=== PATIENT | female | born 1945 ===

== ENCOUNTER 2017-03-17 00:31 | Inpatient (IN) | payer MEDICARE, MEDICAID ==
[2017-03-17 00:31] VITALS: BMI 22.3
[2017-03-17] MEDS ORDERED: Fosphenytoin 100 mg/2 ml Inj IV STA (00:43)
[2017-03-17] MEDS ORDERED: Fosphenytoin 100 mg/2 ml Inj ONE (01:39)
--- NOTE | 2017-03-17 01:48 | ED PDOC ---
HPI: Seizure Time Seen by Provider: 03/17/17 00:34 Chief Complaint (Nursing): Seizure Chief Complaint (Provider): Seizure History Per: EMS, Family History/Exam Limitations: no limitations Recent Seizure Activity Began: Just Before Arrival (30 minutes) Length Of Seizures (Duration): Minutes (<1) Quality Of Seizure: Generalized Post-ictal Period: Yes (<1 minute) Additional Complaint(s): 72 year old female with previous medical history of hypertension, Alzheimer's disease and hypothyroidism, who presents to the emergency department for an evaluation of less than 1 minute tonic-clonic seizure postictal state witnessed by family and EMS half an hour prior to arrival. Daughter reported that patient had seizure-like activity last week, evaluated at [facility] and discharged yesterday with no seizure medications and a negative workup. PMD: none provided Past Medical History Reviewed: Historical Data, Nursing Documentation, Vital Signs Vital Signs: Last Vital Signs Temp 97.9 F 03/17/17 05:35 Pulse 88 03/17/17 05:47 Resp 16 03/17/17 05:47 BP 115/7 L 03/17/17 05:35 Pulse Ox 100 03/17/17 05:35 - Medical History PMH: Alzheimer's Disease, HTN, Hypothyroidism, Seizures - Family History Family History: States: Unknown Family Hx - Social History Current smoker - smoking cessation education provided: No Alcohol: None Drugs: Denies - Home Medications Home Medications: Ambulatory Orders Medication Instructions Recorded Aspirin [Aspirin Chewable] 81 mg PO DAILY 03/17/17 Atorvastatin [Lipitor] 10 mg PO HS 03/17/17 Enalapril Maleate [Vasotec] 5 mg PO DAILY 03/17/17 Levothyroxine [Synthroid] 75 mcg PO DAILY 03/17/17 Memantine HCl/Donepezil HCl 1 each PO DAILY 03/17/17 [Namzaric 28 mg-10 mg Capsule] Mirtazapine [Remeron] 15 mg PO HS 03/17/17 Tamsulosin [Flomax] 0.4 mg PO DAILY 03/17/17 - Allergies Allergies/Adverse Reactions: Allergies Allergy/AdvReac Type Severity Reaction Status Date / Time No Known Allergies Allergy Verified 01/26/16 08:55 Review of Systems Review Of Systems: ROS cannot be obtained secondary to pt's inabilty to answer questions. (alzheimer's disease) Physical Exam - Reviewed Nursing Documentation Reviewed: Yes Vital Signs Reviewed: Yes - Physical Exam Appears: Positive for: No Acute Distress Head Exam: Positive for: ATRAUMATIC, NORMAL INSPECTION, NORMOCEPHALIC Skin: Positive for: Normal Color Eye Exam: Positive for: Normal appearance ENT: Positive for: Normal ENT Inspection Cardiovascular/Chest: Positive for: Regular Rate, Rhythm, Chest Non Tender Respiratory: Positive for: Normal Breath Sounds. Negative for: Decreased Breath Sounds, Respiratory Distress Gastrointestinal/Abdominal: Positive for: Normal Exam, Soft. Negative for: Tenderness Extremity: Positive for: Normal ROM (lower). Negative for: Pedal Edema, Calf Tenderness, Deformity (lower) Neurologic/Psych: Positive for: Alert (to voice commands), grief counsellor II-XII (intact), Oriented (x0), Mood/Affect (mumbling), Other (GCS: 14 (eyes are closed; opens with stimulation)) - Laboratory Results Result Diagrams: 03/17/17 01:41 03/17/17 01:41 - ECG O2 Sat by Pulse Oximetry: 100 Pulse Ox Interpretation: Normal Medical Decision Making Medical Decision Making: Initial Impression: Seizure vs. syncope with tonic-clonic activity vs. electrolyte abnormality vs. UTI Initial Plan: * CT head without contrast * EKG * Alcohol serum * BMP * CPK * TSH * CBC * CXR * Cerebyx 100mg IV * Stool culture * Accuchek * Urinalysis Time: 0214 --CT head FINDINGS: Brain: There is mild diffuse cerebral atrophy present, consistent with this patient's age. There is mild diffuse heterogeneity of the periventricular white matter attenuation, consistent with chronic white matter ischemic changes. No hemorrhage. Ventricles: The ventricular system demonstrates mild diffuse compensatory enlargement. Bones/joints: Unremarkable. No acute fracture. Soft tissues: Unremarkable. Sinuses: Unremarkable as visualized. No acute sinusitis. Mastoid air cells: Unremarkable as visualized. No mastoid effusion. IMPRESSION: Age-related atrophy and chronic white matter ischemic changes, with no evidence of an acute intracranial abnormality. CT A/P ordered to r/o infected stone, shows possible colitis, however patient does not have abd pain, nor tenderness on exam. ABx started for UTI. Spoke with Dr. Mayberry who agrees with management. Will admit to tele, Dr. La aware. Scribe Attestation: Documented by Shelby Corea, acting as a scribe for Cullen Segovia MD. Provider Scribe Attestation: All medical record entries made by the Scribe were at my direction and personally dictated by me. I have reviewed the chart and agree that the record accurately reflects my personal performance of the history, physical exam, medical decision making, and the department course for this patient. I have also personally directed, reviewed, and agree with the discharge instructions and disposition. Disposition - Clinical Impression Clinical Impression: UTI (urinary tract infection), Witnessed seizure - Patient ED Disposition Is Patient to be Admitted: Yes - Disposition Disposition Time: 02:50 Condition: SERIOUS
[2017-03-17 01:59] LABS: BASO # 0.1 K/uL (0.0-0.2); BASO % 0.6 % (0.0-2.0); EOS # 0.2 K/uL (0.0-0.7); EOS % 1.3 % (0.0-4.0); HEMOGLOBIN 10.1 g/dL (12.0-16.0); LYMPH # 2.2 K/uL (1.0-4.3); LYMPH % 12.3 % (20.0-40.0); MEAN CELL VOLUME 76.1 fl (81.0-99.0); MEAN CORPUSCULAR HEMOGLOBIN 23.7 pg (27.0-31.0); MEAN CORPUSCULAR HGB CONC 31.2 g/dL (33.0-37.0); MEAN PLATELET VOLUME 7.6 fl (7.2-11.7); MONO % 5.7 % (0.0-10.0); NEUT # 14.3 K/uL (1.8-7.0); NEUT % 80.1 % (50.0-75.0); RBC 4.26 Mil/uL (3.80-5.20); RED CELL DISTRIBUTION WIDTH 16.6 % (11.5-14.5); WHITE BLOOD COUNT 17.8 K/uL (4.8-10.8)
--- NOTE | 2017-03-17 02:15 | CT ---
EXAM: CT Head Without Intravenous Contrast CLINICAL HISTORY: 72 years old, female; Signs and symptoms; Other: Seizures; Additional info: 2 seizures today TECHNIQUE: Axial computed tomography images of the head/brain without intravenous contrast. All CT scans at this facility use one or more dose reduction techniques, viz.: automated exposure control; ma/kV adjustment per patient size (including targeted exams where dose is matched to indication; i.e. head); or iterative reconstruction technique. Coronal and sagittal reformatted images were created and reviewed. COMPARISON: No relevant prior studies available. FINDINGS: Brain: There is mild diffuse cerebral atrophy present, consistent with this patient's age. There is mild diffuse heterogeneity of the periventricular white matter attenuation, consistent with chronic white matter ischemic changes. No hemorrhage. Ventricles: The ventricular system demonstrates mild diffuse compensatory enlargement. Bones/joints: Unremarkable. No acute fracture. Soft tissues: Unremarkable. Sinuses: Unremarkable as visualized. No acute sinusitis. Mastoid air cells: Unremarkable as visualized. No mastoid effusion. IMPRESSION: Age-related atrophy and chronic white matter ischemic changes, with no evidence of an acute intracranial abnormality.
[2017-03-17 02:37] LABS: BLOOD UREA NITROGEN 13 mg/dl (7-17); CALCIUM 8.9 mg/dL (8.4-10.2); GFR AFRICAN-AMERICAN > 60; GFR NON-AFRICAN AMERICAN 55
[2017-03-17 02:47] LABS: SQUAMOUS EPITHIAL < 1 /hpf (0-5); URINE BACTERIA RARE (<OCC); URINE BILIRUBIN NEGATIVE (NEGATIVE); URINE BLOOD LARGE (NEGATIVE); URINE CALCIUM OXALATE CRYSTALS MANY /hpf (<OCC); URINE CLARITY CLOUDY (Clear); URINE COLOR YELLOW (YELLOW); URINE GLUCOSE (UA) NEG (Normal); URINE LEUKOCYTE ESTERASE MOD Leu/uL (Negative); URINE NITRATE NEGATIVE (NEGATIVE); URINE PROTEIN 30 mg/dL (NEGATIVE); URINE UROBILINOGEN 0.2-1.0 mg/dL (0.2-1.0)
[2017-03-17] MEDS ORDERED: Sodium Chloride 0.9% 1,000 ML IV STA (02:54)
[2017-03-17] MEDS ORDERED: cefTRIAXone 2 GM in Sodium Chloride 0.9% 100 ML IVPB STA (02:58)
[2017-03-17] MEDS ORDERED: Iohexol 300 100 ML IJ ONE (03:08)
[2017-03-17] MEDS ORDERED: Sodium Chloride 0.9% 50 ML IV ONE (03:09)
--- NOTE | 2017-03-17 03:12 | CP.PCM.HP ---
History of Present Illness - History of Present Illness History of Present Illness: CC: Seizures HPI: This is a 72 y/o female with MHx significant for HTN, hypothyroid, Alzheimer's disease, and recent diagnosis for seizures who comes in with recurrent seizures. Per family, patient was at [facility] since last week being w/u for seizures. She was d/c'ed yesterday but on no AEDs as her w/u was negative. Today, prior to presenting to ER, she was observed by family to have 1 minute of tonic-clonic seizures and then be post-ictal. After getting on the ambulance and on the way to the ER she apparently had another 1-2 episodes. This past week appears to be first time patient has had seizures. Patient has not had any head trauma as far as known, and has not been started on any new medications. No current f/c/n/v/d. No CP/SOB. no dysuria. PCP: Lora ROS: 14 systems reviewed as possible, negative aside from HPI MHx: HTN, hypothyroid, Alzheimer's disease, and recent diagnosis for seizures SHx: None Allergies: NKDA Medications: Per med rec Family Hx: Patient unable to provide any relevant family Hx Social Hx: Lives at home, no tobacco, no EtOH Surrogate Dec Mkr: Present on Admission - Present on Admission Any Indicators Present on Admission: No Past Patient History - Past Social History Smoking Status: Never Smoked - CARDIAC Hx Hypertension: Yes - NEUROLOGICAL Hx Alzheimer's Disease: Yes Hx Dementia: Yes Hx Seizures: Yes - ENDOCRINE/METABOLIC Hx Hypothyroidism: Yes - PSYCHIATRIC Hx Substance Use: No Meds Allergies/Adverse Reactions: Allergies Allergy/AdvReac Type Severity Reaction Status Date / Time No Known Allergies Allergy Verified 01/26/16 08:55 Physical Exam - Constitutional Appears: No Acute Distress, Confused - Head Exam Head Exam: ATRAUMATIC, NORMOCEPHALIC - Eye Exam Eye Exam: EOMI, Normal appearance, PERRL Pupil Exam: NORMAL ACCOMODATION, PERRL - ENT Exam ENT Exam: Mucous Membranes Moist - Neck Exam Neck exam: Positive for: Full Rom - Respiratory Exam Respiratory Exam: Clear to Auscultation Bilateral, NORMAL BREATHING PATTERN - Cardiovascular Exam Cardiovascular Exam: REGULAR RHYTHM, +S1, +S2 - GI/Abdominal Exam GI & Abdominal Exam: Normal Bowel Sounds, Soft - Extremities Exam Extremities exam: Positive for: full ROM, normal inspection - Neurological Exam Neurological exam: Alert Additional comments: patient awake, with baseline dementia, no gross focal motor abn - Skin Skin Exam: Warm Results - Vital Signs Recent Vital Signs: Last Vital Signs Temp 97.6 F 03/17/17 00:39 Pulse 73 03/17/17 00:39 Resp 18 03/17/17 00:39 BP 115/70 03/17/17 00:39 Pulse Ox 100 03/17/17 02:20 - Labs Result Diagrams: 03/17/17 01:41 03/17/17 01:41 Labs: Laboratory Results - last 24 hr 03/17/17 03/17/17 03/17/17 00:55 01:41 01:41 WBC 17.8 H RBC 4.26 Hgb 10.1 L Hct 32.4 L MCV 76.1 L MCH 23.7 L MCHC 31.2 L RDW 16.6 H Plt Count 372 MPV 7.6 Neut % (Auto) 80.1 H Lymph % (Auto) 12.3 L [place] % (Auto) 5.7 Eos % (Auto) 1.3 Baso % (Auto) 0.6 Neut # 14.3 H Lymph # 2.2 [place] # 1.0 H Eos # 0.2 Baso # 0.1 Sodium 140 Potassium 4.2 Chloride 107 Carbon Dioxide 24 Anion Gap 13 BUN 13 Creatinine 1.0 Est GFR ( Amer) > 60 Est GFR (Non-Af Amer) 55 POC Glucose (mg/dL) 128 H Random Glucose 124 H Calcium 8.9 Urine Color Urine Clarity Urine pH Ur Specific [place] Urine Protein Urine Glucose (UA) Urine Ketones Urine Blood Urine Nitrate Urine Bilirubin Urine Urobilinogen Ur Leukocyte Esterase Urine RBC (Auto) Urine Microscopic WBC Ur Squamous Epith Cells Calcium Oxalate Crystal Urine Bacteria Alcohol, Quantitative < 10 03/17/17 02:25 WBC RBC Hgb Hct MCV MCH MCHC RDW Plt Count MPV Neut % (Auto) Lymph % (Auto) [place] % (Auto) Eos % (Auto) Baso % (Auto) Neut # Lymph # [place] # Eos # Baso # Sodium Potassium Chloride Carbon Dioxide Anion Gap BUN Creatinine Est GFR ( Amer) Est GFR (Non-Af Amer) POC Glucose (mg/dL) Random Glucose Calcium Urine Color Yellow Urine Clarity Cloudy Urine pH 6.0 Ur Specific [place] 1.019 Urine Protein 30 Urine Glucose (UA) Neg Urine Ketones Negative Urine Blood Large Urine Nitrate Negative Urine Bilirubin Negative Urine Urobilinogen 0.2-1.0 Ur Leukocyte Esterase Mod Urine RBC (Auto) 331 H Urine Microscopic WBC 10 H Ur Squamous Epith Cells < 1 Calcium Oxalate Crystal Many H Urine Bacteria Rare Alcohol, Quantitative - Imaging and Cardiology CT scan - head Status: Image reviewed by me (No acute findings), Report reviewed by me Assessment & Plan (1) Seizure Assessment and Plan: 72 y/o female with mult med conds including recent seizure dx, and also UTI. 1) Seizure -Admit tele -Neuro c/s in AM -Will cont phenytoin post-load at 100 tid PO -Ativan for breakthrough seizures 2) UTI -- continue ceftriaxone 3) HTN, HLD -- cont home medications 4) Hypothroid -- cont home medications 5) Dementia -- cont home medications 6) DVT PPx -- SCDs Status: Acute (2) UTI (urinary tract infection) Status: Acute (3) HTN (hypertension) Status: Acute (4) HLD (hyperlipidemia) Status: Acute (5) Hypothyroid Status: Acute (6) DVT prophylaxis Status: Acute
[2017-03-17 03:19] LABS: VENOUS BLOOD GAS BASE EXCESS -1.4 mmol/L (0.0-2.0); VENOUS BLOOD GAS PCO2 36 mmHg (40-60); VENOUS BLOOD GAS PO2 50 mm/Hg (30-55); VENOUS BLOOD PH 7.41 (7.32-7.43)
--- NOTE | 2017-03-17 04:17 | CT ---
EXAM: CT Abdomen and Pelvis With Intravenous Contrast CLINICAL HISTORY: 72 years old, female; Signs and symptoms; Other: Leukocytosis hematuria; Additional info: Leukocytosis, hematuria TECHNIQUE: Axial computed tomography images of the abdomen and pelvis with intravenous contrast. All CT scans at this facility use one or more dose reduction techniques, viz.: automated exposure control; ma/kV adjustment per patient size (including targeted exams where dose is matched to indication; i.e. head); or iterative reconstruction technique. Coronal and sagittal reformatted images were created and reviewed. CONTRAST: 95 mL of omnipaue 300 administered intravenously. COMPARISON: No relevant prior studies available. FINDINGS: Lower thorax: There is minimal bibasilar atelectasis. ABDOMEN: Liver: Unremarkable. No mass. Gallbladder and bile ducts: Unremarkable. No calcified stones. No ductal dilation. Pancreas: Unremarkable. No mass. No ductal dilation. Spleen: Too small to characterize low-density lesion in the spleen measures 7 mm. No no splenomegaly Adrenals: Unremarkable. No mass. Kidneys and ureters: The right kidney is normal. There is a focal left renal hypodensity that cannot be further characterized on the current examination. No solid mass. No hydronephrosis. Stomach and bowel: No obstruction. The colon is thick walled at the splenic flexure suggesting acute colitis. Mild adjacent stranding of the mesenteric fat. An underlying mass or stricture is not completely excluded. Image 13 series 2. Appendix: A normal appendix is identified. PELVIS: Bladder: The bladder is decompressed by a King catheter but is otherwise normal. Reproductive: Unremarkable as visualized. ABDOMEN and PELVIS: Intraperitoneal space: No significant fluid collection. Bones/joints: No acute fracture. No dislocation. Soft tissues: There is a fat-containing umbilical hernia. Vasculature: Unremarkable. No abdominal aortic aneurysm. Lymph nodes: Unremarkable. No enlarged lymph nodes. IMPRESSION: Thickwalled splenic flexure with mild adjacent inflammatory changes suggesting acute colitis. An underlying mass is not completely excluded. Clinical correlation and followup recommended. Too small to characterize low-density splenic and renal lesions, probable cysts. No followup necessary. Small fat-containing and the local hernia.
[2017-03-17] MEDS ORDERED: Levothyroxine 75 MCG TAB PO SCH (06:30)
--- NOTE | 2017-03-17 08:25 | RAD ---
PROCEDURE: CHEST RADIOGRAPH, 1 VIEW HISTORY: seizures COMPARISON: None available. FINDINGS: LUNGS: No focal alveolar infiltrate. Minor crowding at the lung bases. PLEURA: No pneumothorax or pleural fluid seen. CARDIOVASCULAR: Heart is normal in size. There is mild uncoiling of the aorta. Trachea is midline. OSSEOUS STRUCTURES: No significant abnormalities. VISUALIZED UPPER ABDOMEN: Normal. OTHER FINDINGS: None. IMPRESSION: No active disease.
[2017-03-17] MEDS ORDERED: cefTRIAXone 2 GM in Sodium Chloride 0.9% 100 ML IVPB SCH (09:00)
[2017-03-17] MEDS ORDERED: Levothyroxine 25 MCG TAB PO STA (09:47)
[2017-03-17] MEDS: MEMANTINE HCL PO SCH (10:23)
[2017-03-17] MEDS: DONEPEZIL HCL PO SCH (10:23)
--- NOTE | 2017-03-17 12:14 | CARD ---
APPROVED REPORT EKG Measurement Heart [id number] <Conclusion> Normal sinus rhythm Minimal voltage criteria for LVH, may be normal variant Borderline ECG
--- NOTE | 2017-03-17 16:18 | CP.PCM.CON ---
History of Present Illness - History of Present Illness History of Present Illness: Mrs. Kirill Bray is a 72-year-old woman with Alzheimer's disease, who has now had 4 lifetime witnessed episodes of generalized tonic-clonic seizures. But, her daughter is at bedside and states that the patient may be having more since she does have episodes of night of sweating, shaking, difficulty with respirations and wakes up with urinary incontinence. She was started on dilantin after a loading dose and is currently stable. She was worked up previously by Dr. Booker and he is her outpatient neurologist. Review of Systems - Review of Systems Systems not reviewed;Unavailable: Altered Mental Status All systems: reviewed and no additional remarkable complaints except Past Patient History - Past Medical History & Family History Past Medical History?: Yes - Past Social History Alcohol: None Drugs: Denies - CARDIAC Hx Hypertension: Yes - NEUROLOGICAL Hx Alzheimer's Disease: Yes Hx Seizures: Yes - ENDOCRINE/METABOLIC Hx Hypothyroidism: Yes - MUSCULOSKELETAL/RHEUMATOLOGICAL Hx Falls: No - PSYCHIATRIC Hx Substance Use: No - SURGICAL HISTORY Hx Surgeries: No - ANESTHESIA Hx Anesthesia: No Meds Allergies/Adverse Reactions: Allergies Allergy/AdvReac Type Severity Reaction Status Date / Time No Known Allergies Allergy Verified 01/26/16 08:55 - Medications Medications: Current Medications Aspirin (Aspirin Chewable) 81 mg PO DAILY [facility] Last Admin: 03/17/17 10:24 Dose: 81 mg Atorvastatin Calcium (Lipitor) 10 mg PO HS [facility] Enalapril Maleate (Vasotec) 5 mg PO DAILY [facility] Last Admin: 03/17/17 10:24 Dose: 5 mg Home Med (Memantine Hcl/Donepezil Hcl [Namzaric 28 Mg-10 Mg Capsule]) 1 each PO DAILY [facility] Last Admin: 03/17/17 10:23 Dose: 1 each Ceftriaxone Sodium 1 gm/ (Sodium Chloride) 100 mls @ 100 mls/hr IVPB DAILY [facility] PRN Reason: Protocol Last Admin: 03/17/17 10:47 Dose: 100 mls/hr Lacosamide (Vimpat) 100 mg PO BID [facility] Levothyroxine Sodium (Synthroid) 88 mcg PO DAILY@0630 [facility] Lorazepam (Ativan) 1 mg IVP Q6 PRN PRN Reason: seizures Phenytoin (Dilantin) 100 mg PO Q8 [facility] Last Admin: 01/06/18 10:23 Dose: 100 mg Tamsulosin HCl (Flomax) 0.4 mg PO DAILY [facility] Last Admin: 03/17/17 10:24 Dose: 0.4 mg Physical Exam - Constitutional Appears: Confused - Head Exam Head Exam: ATRAUMATIC, NORMAL INSPECTION, NORMOCEPHALIC - Eye Exam Eye Exam: EOMI, Normal appearance, PERRL - ENT Exam ENT Exam: Mucous Membranes Moist, Normal Exam - Neck Exam Neck exam: Positive for: Normal Inspection - Cardiovascular Exam Cardiovascular Exam: REGULAR RHYTHM, +S1, +S2 - Rectal Exam Rectal Exam: Deferred - Neurological Exam Neurological exam: Abnormal Gait, Alert, Altered, CN II-XII Intact, Reflexes Normal Additional comments: Speech is fragmentary. Severe dementia. Unable to follow commands fully. But , moves all extremities and sensation is intact. Reflexes are normal. Results - Vital Signs Recent Vital Signs: Last Vital Signs Temp 98.6 F 03/17/17 16:01 Pulse 88 03/17/17 16:01 Resp 20 03/17/17 16:01 BP 110/66 03/17/17 16:01 Pulse Ox 98 03/17/17 16:01 - Labs Result Diagrams: 03/17/17 01:41 03/17/17 01:41 Labs: Laboratory Results - last 24 hr 03/17/17 03/17/17 03/17/17 00:55 01:41 01:41 WBC 17.8 H RBC 4.26 Hgb 10.1 L Hct 32.4 L MCV 76.1 L MCH 23.7 L MCHC 31.2 L RDW 16.6 H Plt Count 372 MPV 7.6 Neut % (Auto) 80.1 H Lymph % (Auto) 12.3 L [place] % (Auto) 5.7 Eos % (Auto) 1.3 Baso % (Auto) 0.6 Neut # 14.3 H Lymph # 2.2 Rice # 1.0 H Eos # 0.2 Baso # 0.1 pO2 VBG pH VBG pCO2 VBG HCO3 VBG Total CO2 VBG O2 Sat (Calc) VBG Base Excess VBG Potassium Glucose Lactate FiO2 Sodium 140 Potassium 4.2 Chloride 107 Carbon Dioxide 24 Anion Gap 13 BUN 13 Creatinine 1.0 Est GFR ( Amer) > 60 Est GFR (Non-Af Amer) 55 POC Glucose (mg/dL) 128 H Random Glucose 124 H Calcium 8.9 Total Creatine Kinase 82 TSH 3rd Generation 19.10 H Venous Blood Potassium Urine Color Urine Clarity Urine pH Ur Specific [place] Urine Protein Urine Glucose (UA) Urine Ketones Urine Blood Urine Nitrate Urine Bilirubin Urine Urobilinogen Ur Leukocyte Esterase Urine RBC (Auto) Urine Microscopic WBC Ur Squamous Epith Cells Calcium Oxalate Crystal Urine Bacteria Alcohol, Quantitative < 10 03/17/17 03/17/17 02:25 03:11 WBC RBC Hgb Hct MCV MCH MCHC RDW Plt Count MPV Neut % (Auto) Lymph % (Auto) [place] % (Auto) Eos % (Auto) Baso % (Auto) Neut # Lymph # [place] # Eos # Baso # pO2 50 VBG pH 7.41 VBG pCO2 36 L VBG HCO3 23.5 VBG Total CO2 23.9 VBG O2 Sat (Calc) 90.7 H VBG Base Excess -1.4 L VBG Potassium 4.4 Glucose 116 H Lactate 1.2 FiO2 21.0 Sodium 139.0 Potassium Chloride 110.0 H Carbon Dioxide Anion Gap BUN Creatinine Est GFR ( Amer) Est GFR (Non-Af Amer) POC Glucose (mg/dL) Random Glucose Calcium Total Creatine Kinase TSH 3rd Generation Venous Blood Potassium 4.4 Urine Color Yellow Urine Clarity Cloudy Urine pH 6.0 Ur Specific [place] 1.019 Urine Protein 30 Urine Glucose (UA) Neg Urine Ketones Negative Urine Blood Large Urine Nitrate Negative Urine Bilirubin Negative Urine Urobilinogen 0.2-1.0 Ur Leukocyte Esterase Mod Urine RBC (Auto) 331 H Urine Microscopic WBC 10 H Ur Squamous Epith Cells < 1 Calcium Oxalate Crystal Many H Urine Bacteria Rare Alcohol, Quantitative Assessment & Plan (1) Seizure Assessment and Plan: Will obtain MRI with and without contrast as well as an EEG for further evaluation. Will start the patient on Vimpat 100 mg BID and stop dilantin to avoid interactions with her other medications. Thank you. Status: Acute Priority: High
[2017-03-17] MEDS: Lacosamide 50 MG Tab PO SCH (17:36)
[2017-03-18] MEDS: Levothyroxine 88 MCG TAB PO SCH (05:54)
[2017-03-18 07:15] LABS: HEMOGLOBIN 9.2 g/dL (12.0-16.0); MEAN CELL VOLUME 76.7 fl (81.0-99.0); MEAN CORPUSCULAR HEMOGLOBIN 23.8 pg (27.0-31.0); RBC 3.86 Mil/uL (3.80-5.20); RED CELL DISTRIBUTION WIDTH 16.7 % (11.5-14.5); WHITE BLOOD COUNT 13.5 K/uL (4.8-10.8)
[2017-03-18 07:57] LABS: BLOOD UREA NITROGEN 12 mg/dl (7-17); CALCIUM 8.6 mg/dL (8.4-10.2); GFR AFRICAN-AMERICAN > 60; GFR NON-AFRICAN AMERICAN > 60
[2017-03-18 08:10] LABS: T4 7.38 ug/dl (5.5-11.0)
[2017-03-18] MEDS: Lacosamide 50 MG Tab PO SCH ×2 (09:02→16:37)
--- NOTE | 2017-03-18 09:17 | CP.PCM.PN ---
Subjective - Date & Time of Evaluation Date of Evaluation: 03/18/17 Time of Evaluation: 09:30 - Subjective Subjective: Patient seen and examined bedside. elderly female of stated age, pleasantly demented lying in bed in nAD. Denies any pain or discomfort.No more seizure like activity. Follows commands. Daughter by bedside. Objective - Vital Signs/Intake and Output Vital Signs (last 24 hours): Temp Pulse Resp BP Pulse Ox 98.4 F 94 H 18 109/73 98 03/18/17 07:44 03/18/17 07:44 03/18/17 07:44 03/18/17 07:44 03/18/17 07:44 Intake and Output: 03/18/17 03/18/17 06:59 18:59 Intake Total 200 Output Total 700 Balance -500 - Medications Medications: Current Medications Aspirin (Aspirin Chewable) 81 mg PO DAILY [facility] Last Admin: 03/18/17 09:01 Dose: 81 mg Atorvastatin Calcium (Lipitor) 10 mg PO HS [facility] Last Admin: 03/17/17 21:49 Dose: 10 mg Enalapril Maleate (Vasotec) 5 mg PO DAILY [facility] Last Admin: 03/18/17 08:59 Dose: 5 mg Home Med (Memantine Hcl/Donepezil Hcl [Namzaric 28 Mg-10 Mg Capsule]) 1 each PO DAILY [facility] Last Admin: 03/17/17 10:23 Dose: 1 each Ceftriaxone Sodium 1 gm/ (Sodium Chloride) 100 mls @ 100 mls/hr IVPB DAILY [facility] PRN Reason: Protocol Last Admin: 03/18/17 09:00 Dose: 100 mls/hr Lacosamide (Vimpat) 100 mg PO BID [facility] Last Admin: 03/18/17 09:02 Dose: 100 mg Levothyroxine Sodium (Synthroid) 88 mcg PO DAILY@0630 [facility] Last Admin: 03/18/17 05:54 Dose: 88 mcg Lorazepam (Ativan) 1 mg IVP Q6 PRN PRN Reason: seizures Tamsulosin HCl (Flomax) 0.4 mg PO DAILY [facility] Last Admin: 03/18/17 08:59 Dose: 0.4 mg - Labs Labs: 03/18/17 06:30 03/18/17 06:30 - Constitutional Appears: Non-toxic, No Acute Distress - Head Exam Head Exam: ATRAUMATIC, NORMAL INSPECTION, NORMOCEPHALIC - Eye Exam Eye Exam: EOMI, Normal appearance, PERRL Pupil Exam: NORMAL ACCOMODATION - ENT Exam ENT Exam: Mucous Membranes Moist, Normal Exam - Neck Exam Neck Exam: Full ROM, Normal Inspection - Respiratory Exam Respiratory Exam: Clear to Ausculation Bilateral, NORMAL BREATHING PATTERN. absent: Rales, Rhonchi, Wheezes - Cardiovascular Exam Cardiovascular Exam: REGULAR RHYTHM, RRR, +S1, +S2. absent: JVD - GI/Abdominal Exam GI & Abdominal Exam: Soft, Normal Bowel Sounds. absent: Distended, Guarding, Tenderness, Rebound - Rectal Exam Rectal Exam: Deferred - Extremities Exam Extremities Exam: Full ROM, Normal Capillary Refill, Normal Inspection. absent : Calf Tenderness, Pedal Edema - Back Exam Back Exam: NORMAL INSPECTION - Neurological Exam Neurological Exam: Alert, Awake, CN II-XII Intact - Psychiatric Exam Psychiatric exam: Normal Affect - Skin Skin Exam: Normal Color, Warm Assessment and Plan - Assessment and Plan (Free Text) Assessment: 72 y/o female with PMHx significant for HTN, hypothyroid, Alzheimer's disease, and recent diagnosis for seizures came in with recurrent seizures. Per family, patient was at [facility] since last week being w/u for seizures. She was discharged home yesterday but on no AEDs as her work up was negative. Today, prior to presenting to ER, she was observed by family to have 1 minute of tonic- clonic seizures and then she was post-ictal. After getting on the ambulance and on the way to the ER she apparently had another 1-2 episodes. This past week appears to be first time patient has had seizures. Patient has not had any head trauma as far as known, and has not been started on any new medications. No current f/c/n/v/d. No CP/SOB. Recently diagnosed with UTI in [facility] and a simms catheter was placed due to urinary retention. 1. Seizure patient has muoltipl erecurrent seizure episods CT heda showed generalized age related atrophy , no acute pathology Neurology consult appreciated with Dr. Mayberry[address] Booker0 Started Lindsaypta will perform MRI head with and without contrast and EEG treat for UTI 2. Hypothyroidism uncontrolled TSH 9 increased Levothyroxine dose to 88mcg daily 3. UTI/hematuria Urinary Retention cont IV Ceftriaxone follow up Urine c/s Urology consulted DR Donovan Start bladder training by nursing staff and continue Flomax pt was d/c home from [place] with Simms catheter and Flomax 4.HTN controlled on enalapril 5. Dementia chronic 6. Anemia most likely anemia of chronic disease send anemia work up 7.Leukocytosis most likely reactive and secondary to UTI WBC trendingdown from 17-- 13 K 8. DVT prophylaxis SCD and lovenox
--- NOTE | 2017-03-18 13:55 | CP.PCM.PN ---
Subjective - Date & Time of Evaluation Date of Evaluation: 03/18/17 Time of Evaluation: 13:52 - Subjective Subjective: 72 year old female admitted with new onset of siezures shortly after discharge from [facility] she arrived with simms cath. consult was called because of hematuria. urine is clear now. pt has alzhiemers dementia. ua shows + micro hematuria LE is neg c&s neg. Suggest voiding trial,monitor PVR with bladder scan. If pvr less then 200 cc leave simms out. If not re insert and refer for further urological eval as opd Objective - Vital Signs/Intake and Output Vital Signs (last 24 hours): Temp Pulse Resp BP Pulse Ox 98.5 F 93 H 18 102/65 96 03/18/17 11:50 03/18/17 11:50 03/18/17 11:50 03/18/17 11:50 03/18/17 11:50 Intake and Output: 03/18/17 03/18/17 06:59 18:59 Intake Total 200 Output Total 700 Balance -500 - Medications Medications: Current Medications Aspirin (Aspirin Chewable) 81 mg PO DAILY [facility] Last Admin: 03/18/17 09:01 Dose: 81 mg Atorvastatin Calcium (Lipitor) 10 mg PO HS [facility] Last Admin: 03/17/17 21:49 Dose: 10 mg Enalapril Maleate (Vasotec) 5 mg PO DAILY [facility] Last Admin: 03/18/17 08:59 Dose: 5 mg Home Med (Memantine Hcl/Donepezil Hcl [Namzaric 28 Mg-10 Mg Capsule]) 1 each PO DAILY [facility] Last Admin: 03/17/17 10:23 Dose: 1 each Ceftriaxone Sodium 1 gm/ (Sodium Chloride) 100 mls @ 100 mls/hr IVPB DAILY [facility] PRN Reason: Protocol Last Admin: 03/18/17 09:00 Dose: 100 mls/hr Lacosamide (Vimpat) 100 mg PO BID [facility] Last Admin: 03/18/17 09:02 Dose: 100 mg Lactobacillus Acidophilus (Bacid Acidophilus) 1 cap PO BID [facility] Levothyroxine Sodium (Synthroid) 88 mcg PO DAILY@0630 [facility] Last Admin: 03/18/17 05:54 Dose: 88 mcg Lorazepam (Ativan) 1 mg IVP Q6 PRN PRN Reason: seizures Tamsulosin HCl (Flomax) 0.4 mg PO DAILY [facility] Last Admin: 03/18/17 08:59 Dose: 0.4 mg - Labs Labs: 03/18/17 06:30 03/18/17 06:30
[2017-03-18] MEDS: Lactobacillus Acidophilus 500 MU Cap PO SCH (16:37)
[2017-03-18] MEDS: MEMANTINE HCL PO SCH (16:48)
[2017-03-18] MEDS: DONEPEZIL HCL PO SCH (16:48)
[2017-03-18 17:46] LABS: IRON 22 ug/dL (37-170)
[2017-03-18 17:56] LABS: TOTAL IRON BINDING CAPACITY 299 ug/dL (250-450)
[2017-03-18 18:04] LABS: % IRON SATURATION 7 % (20-55)
[2017-03-18 18:15] LABS: FERRITIN 95.7 ng/Ml (11.1-264.0)
[2017-03-19 05:29] LABS: HEMOGLOBIN 9.8 g/dL (12.0-16.0); MEAN CELL VOLUME 77.1 fl (81.0-99.0); MEAN CORPUSCULAR HGB CONC 31.1 g/dL (33.0-37.0); RBC 4.08 Mil/uL (3.80-5.20); RED CELL DISTRIBUTION WIDTH 16.7 % (11.5-14.5); WHITE BLOOD COUNT 13.1 K/uL (4.8-10.8)
[2017-03-19 05:31] LABS: INR 1.2 (0.9-1.2); PROTHROMBIN TIME 12.9 Seconds (9.8-13.1)
[2017-03-19 05:45] LABS: BLOOD UREA NITROGEN 13 mg/dl (7-17); CALCIUM 9.1 mg/dL (8.4-10.2); GFR AFRICAN-AMERICAN > 60; GFR NON-AFRICAN AMERICAN > 60
[2017-03-19 07:58] VITALS: RESP 20
[2017-03-19] MEDS: Levothyroxine 88 MCG TAB PO SCH (08:17)
[2017-03-19] MEDS ORDERED: Gadodiamide 287 MG/ML VIAL (15ML) IV ONE (08:37)
[2017-03-19] MEDS ORDERED: Enoxaparin 40 mg Syringe SC SCH (09:00)
--- NOTE | 2017-03-19 09:50 | PQF GENQUE ---
Dr. Clark, A cause and effect relationship may not be assumed and must be documented by a provider. Please clarify the relationship, if any, between the simms catheter and UTI Are the conditions: Due to or associated with each other: Simms catheter related UTI? Unrelated to each other Clinically unable to determine Unknown H and P:accdg to daughter , pt was d/c home from [place] with Simms catheter and Flomax 03/18 Attending progress note: Recently diagnosed with UTI in [facility] and a simms catheter was placed due to urinary retention. This form is a permanent part of the medical record Clarification of your documentation is requested to better reflect the severity of illness and intensity of treatment of your patient. Indicators present [] Specify: [] [] Specify: [] [] Specify: [] [] Specify: [] Location in the medical record that reflects the above clinical findings: [] Treatment Provided: [] PHYSICIAN'S RESPONSE UTI and Simms catheter unrelated to each other. Patient was diagnosed with UTI prior to placement of Simms catheter Based on your medical judgment of the clinical indicators outlined above please clarify the following: [] Practitioner response [] If unable to determine, please check the box, sign and date. Present On Admission (POA) Indicator: [] Present at the time of admission [] Not present at the time of admission [] Clinically Undetermined In responding to this query, please exercise your independent professional judgment. The fact that a question is asked does not imply that any particular answer is desired or expected. Thank you for your clarification on this documentation. If you have any questions please call. * Thank you, Wendy Moreno RN ext. #[phone] MTDD
[2017-03-19] MEDS: MEMANTINE HCL PO SCH (09:55)
[2017-03-19] MEDS: Lactobacillus Acidophilus 500 MU Cap PO SCH (09:55)
[2017-03-19] MEDS: DONEPEZIL HCL PO SCH (09:55)
[2017-03-19] MEDS: Lacosamide 50 MG Tab PO SCH ×2 (11:00→16:02)
--- NOTE | 2017-03-19 11:22 | CP.PCM.DIS ---
Provider - Provider Date of Admission: 03/17/17 02:51 Attending physician: Alondra La MD Primary care physician: Dr. Booker Consults: Neurology consult urology consult Time Spent in preparation of Discharge (in minutes): 20 Hospital Course - Lab Results Lab Results: Micro Results 03/17/17 03:23 Blood Blood Culture - Preliminary NO GROWTH AFTER 48 HOURS 03/17/17 03:23 Urine,Catheterized Urine Culture - Final No Growth (<1,000 CFU/ML) Most Recent Lab Values WBC 13.1 K/uL (4.8-10.8) H 03/19/17 04:25 RBC 4.08 Mil/uL (3.80-5.20) 03/19/17 04:25 Hgb 9.8 g/dL (12.0-16.0) L 03/19/17 04:25 Hct 31.5 % (34.0-47.0) L 03/19/17 04:25 MCV 77.1 fl (81.0-99.0) L 03/19/17 04:25 MCH 24.0 pg (27.0-31.0) L 03/19/17 04:25 MCHC 31.1 g/dL (33.0-37.0) L 03/19/17 04:25 RDW 16.7 % (11.5-14.5) H 03/19/17 04:25 Plt Count 344 K/uL (130-400) 03/19/17 04:25 MPV 7.6 fl (7.2-11.7) 03/17/17 01:41 Neut % (Auto) 80.1 % (50.0-75.0) H 03/17/17 01:41 Lymph % (Auto) 12.3 % (20.0-40.0) L 03/17/17 01:41 [place] % (Auto) 5.7 % (0.0-10.0) 03/17/17 01:41 Eos % (Auto) 1.3 % (0.0-4.0) 03/17/17 01:41 Baso % (Auto) 0.6 % (0.0-2.0) 03/17/17 01:41 Neut # 14.3 K/uL (1.8-7.0) H 03/17/17 01:41 Lymph # 2.2 K/uL (1.0-4.3) 03/17/17 01:41 [place] # 1.0 K/uL (0.0-0.8) H 03/17/17 01:41 Eos # 0.2 K/uL (0.0-0.7) 03/17/17 01:41 Baso # 0.1 K/uL (0.0-0.2) 03/17/17 01:41 Retic Count 1.8 % (0.5-1.5) H 03/18/17 17:00 PT 12.9 Seconds (9.8-13.1) 03/19/17 04:25 INR 1.2 (0.9-1.2) 03/19/17 04:25 pO2 50 mm/Hg (30-55) 03/17/17 03:11 VBG pH 7.41 (7.32-7.43) 03/17/17 03:11 VBG pCO2 36 mmHg (40-60) L 03/17/17 03:11 VBG HCO3 23.5 mmol/L 03/17/17 03:11 VBG Total CO2 23.9 mmol/L (22-28) 03/17/17 03:11 VBG O2 Sat (Calc) 90.7 % (40-65) H 03/17/17 03:11 VBG Base Excess -1.4 mmol/L (0.0-2.0) L 03/17/17 03:11 VBG Potassium 4.4 mmol/L (3.6-5.2) 03/17/17 03:11 Sodium 139.0 mmol/L (132-148) 03/17/17 03:11 Chloride 110.0 mmol/L (98-107) H 03/17/17 03:11 Glucose 116 mg/dL (65-105) H 03/17/17 03:11 Lactate 1.2 mmol/L (0.7-2.1) 03/17/17 03:11 FiO2 21.0 % 03/17/17 03:11 Sodium 142 mmol/l (132-148) 03/19/17 04:25 Potassium 4.1 MMOL/L (3.6-5.0) 03/19/17 04:25 Chloride 106 mmol/L (98-107) 03/19/17 04:25 Carbon Dioxide 23 mmol/L (22-30) 03/19/17 04:25 Anion Gap 17 (10-20) 03/19/17 04:25 BUN 13 mg/dl (7-17) 03/19/17 04:25 Creatinine 0.9 mg/dl (0.7-1.2) 03/19/17 04:25 Est GFR ( Amer) > 60 03/19/17 04:25 Est GFR (Non-Af Amer) > 60 03/19/17 04:25 POC Glucose (mg/dL) 128 mg/dL (65-110) H 03/17/17 00:55 Random Glucose 88 mg/dL (65-105) 03/19/17 04:25 Calcium 9.1 mg/dL (8.4-10.2) 03/19/17 04:25 Iron 22 ug/dL (37-170) L 03/18/17 17:00 TIBC 299 ug/dL (250-450) 03/18/17 17:00 % Saturation 7 % (20-55) L 03/18/17 17:00 Ferritin 95.7 ng/Ml (11.1-264.0) 03/18/17 17:00 Total Creatine Kinase 82 U/L (30-135) 03/17/17 01:41 Vitamin B12 360 pg/mL (239-931) 03/18/17 17:00 Thyroxine (T4) 7.38 ug/dl (5.5-11.0) 03/18/17 06:30 TSH 3rd Generation 9.93 mIU/ML (0.46-4.68) H 03/18/17 06:30 Venous Blood Potassium 4.4 mmol/L (3.6-5.2) 03/17/17 03:11 Urine Color Yellow (YELLOW) 03/17/17 02:25 Urine Clarity Cloudy (Clear) 03/17/17 02:25 Urine pH 6.0 (5.0-8.0) 03/17/17 02:25 Ur Specific [place] 1.019 (1.003-1.030) 03/17/17 02:25 Urine Protein 30 mg/dL (NEGATIVE) 03/17/17 02:25 Urine Glucose (UA) Neg mg/dL (Normal) 03/17/17 02:25 Urine Ketones Negative mg/dL (NEGATIVE) 03/17/17 02:25 Urine Blood Large (NEGATIVE) 03/17/17 02:25 Urine Nitrate Negative (NEGATIVE) 03/17/17 02:25 Urine Bilirubin Negative (NEGATIVE) 03/17/17 02:25 Urine Urobilinogen 0.2-1.0 mg/dL (0.2-1.0) 03/17/17 02:25 Ur Leukocyte Esterase Mod Kam/uL (Negative) 03/17/17 02:25 Urine RBC (Auto) 331 /hpf (0-3) H 03/17/17 02:25 Urine Microscopic WBC 10 /hpf (0-5) H 03/17/17 02:25 Ur Squamous Epith Cells < 1 /hpf (0-5) 03/17/17 02:25 Calcium Oxalate Crystal Many /hpf (<OCC) H 03/17/17 02:25 Urine Bacteria Rare (<OCC) 03/17/17 02:25 Phenytoin < 3.0 ug/ML (10-20) L 03/17/17 19:00 Alcohol, Quantitative < 10 mg/dl (0-10) 03/17/17 01:41 - Hospital Course Hospital Course: 72 y/o female with PMHx significant for HTN, hypothyroid, Alzheimer's disease, and recent diagnosis for seizures came in with recurrent seizures. Per family, patient was at [facility] since last week being w/u for seizures.She wsa also treated with IV antibiotics for UTi and she vikki discharged home with Simms catheter and Flomax for urinary retention. She was discharged home with no anti seizure medications,as her work up was negative.Prior to presenting to ER, she was observed by family to have 1 minute of tonic-clonic seizures and then she was post-ictal. After getting on the ambulance and on the way to the ER she apparently had another 1-2 episodes. This past week appears to be first time patient has had seizures. Patient has not had any head trauma as far as known, and has not been started on any new medications. No current f/c/n/v/d. No CP/ SOB. Ct head in ER showed no acute pathology She was admitted in telemetry for close monitoring and neurology was consulted . Her UA showed few bacteria , RBC. Since her WBC was elevated on admission she was started on IV Rocephin for possible UTI and cultures were sent. She was started on VImpat 100 mg po BId as per Dr. Booker. MRI of the head showed no acute pathology EEG performed. She remained seizure free. Bladder training started and Simms removed . will discharge patient home with family All findings and treatment plan explained to patient's daughter recommended to continue Flomax for 1 more week Follow up with Dr. Booker upon discharge and continue Vimpat Increased synthroid dose to 88 mcg po daily since TSH is elevated . Recommended follow up with PMD to monitor TSH levels 1. Seizure patient has multiple recurrent seizure episodes CT head showed generalized age related atrophy , no acute pathology Neurology consult appreciated with Dr. Mayberry covering for Dr. Booker Started Vimpat 100 mg po bid MRI head showed no acute pathology EEG performed . Will need to follow up reading with Will d/c home on Vimpat with family 2. Hypothyroidism uncontrolled TSH 9 increased Levothyroxine dose to 88mcg daily 3. UTI ruled out hematuria most likely secondary to simms insertion - traumatic Urinary Retention of unclear etiology given IV Ceftriaxone for 3 days and was treated with IV antibiotics at [facility] for 4 days . Urine culture showed no growth Patient is afebrile WBC elevated on admission most likely reactive due to seizure Urology consulted DR Judge Started bladder training by nursing staff and continue Flomax for 1 week. Will d /c Simms before discharge home 4.HTN controlled on enalapril 5. Dementia chronic continue home meds 6. Anemia most likely anemia of chronic disease anemia work up showed very depleted iron stores. will give Venofer IV x 1 dose and start on ferrous sulfate PO 7.Leukocytosis most likely reactive WBC trending down from 17-- 13 K 8. DVT prophylaxis SCD and lovenox Discharge Exam - Head Exam Head Exam: ATRAUMATIC, NORMAL INSPECTION, NORMOCEPHALIC - Eye Exam Eye Exam: EOMI, PERRL Pupil Exam: NORMAL ACCOMODATION - ENT Exam ENT Exam: Mucous Membranes Moist, Normal Exam - Neck Exam Neck exam: Full Rom, Normal Inspection - Respiratory Exam Respiratory Exam: Clear to PA & Lateral, NORMAL BREATHING PATTERN. absent: Rales, Rhonchi, Wheezes, Respiratory Distress - Cardiovascular Exam Cardiovascular Exam: REGULAR RHYTHM, RRR, +S1, +S2. absent: JVD - GI/Abdominal Exam GI & Abdominal Exam: Normal Bowel Sounds, Soft. absent: Distended, Guarding, Rebound, Tenderness - Rectal Exam Rectal Exam: Deferred - Extremities Exam Extremities exam: normal capillary refill, normal inspection, pedal pulses present - Back Exam Back exam: NORMAL INSPECTION - Neurological Exam Neurological exam: Alert, CN II-XII Intact, Reflexes Normal - Psychiatric Exam Psychiatric exam: Flat Affect - Skin Skin Exam: Dry, Pallor, Warm Discharge Plan - Discharge Medications Prescriptions: Lacosamide [Vimpat] 100 mg PO BID #60 tab Levothyroxine [Synthroid] 88 mcg PO DAILY@0630 #30 tab - Follow Up Plan Condition: STABLE Disposition: HOME/ ROUTINE Patient education suggested?: Yes Instructions: Epilepsy (DC), Iron Deficiency Anemia (DC), Iron Rich Diet (DC) Referrals: Juan Carlos Booker MD [Family Provider] -
--- NOTE | 2017-03-19 12:19 | MRI ---
PROCEDURE: MRI BRAIN WITH AND WITHOUT CONTRAST HISTORY: seizure COMPARISON: Unenhanced Head CT 03/17/2017. TECHNIQUE: Multiplanar, multisequence MR images of the brain were obtained with and without intravenous contrast enhancement. 50 cc of Omniscan was utilized for intravenous contrast. FINDINGS: HEMORRHAGE: None DWI: No evidence of an acute or early subacute infarction. BRAIN PARENCHYMA: Chronic microangiopathy type white-matter changes are minimal border better define the current MR examination of the prior CT 03/17/2017. Nevertheless, reiterated age related neuro degenerative changes are identified in general including moderate diffuse cerebral atrophy. There is no mass effect once again and corticomedullary differentiation remains adequate. Midline brain anatomy appears unremarkable and there is no suspicious interval extra-axial fluid collection appreciated. Posterior fossa contents remain nonfocal including the brainstem. An near empty sella is identified. ENHANCEMENT: No abnormal intracranial enhancement. VENTRICLES: Unremarkable. No hydrocephalus. CRANIUM: Unremarkable. ORBITS: Grossly unremarkable. PARANASAL SINUSES/MASTOIDS: Trace bilateral sphenoid sinusitis again evident. VASCULAR SYSTEM: Skull base flow voids intact. OTHER FINDINGS: None . IMPRESSION: Stable age related neuro degenerative change identified without definite acute interval findings including brain infarction, mass effect or hydrocephalus. No prominent intracranial hemorrhage appreciated and there is no abnormal intracranial enhancement following intravenous gadolinium administration.
--- NOTE | 2017-03-19 13:31 | CP.PCM.PN ---
Subjective - Date & Time of Evaluation Date of Evaluation: 03/19/17 Time of Evaluation: 13:28 - Subjective Subjective: Ms. Kirill Bray was seen and examined at the bedside. She is alert but with difficulty to follow simple commands due to her dementia. She is able to answer questions using verbal and non-verbal cues. She denies any headache, blurred vision, dizziness, lightheadedness. She is tolerating PO intake with assistance. There was no untoward events overnight. Objective - Vital Signs/Intake and Output Vital Signs (last 24 hours): Temp Pulse Resp BP Pulse Ox 98.4 F 79 20 108/71 95 03/19/17 07:57 03/19/17 09:00 03/19/17 07:57 03/19/17 07:57 03/19/17 07:57 - Medications Medications: Current Medications Aspirin (Aspirin Chewable) 81 mg PO DAILY [facility] Last Admin: 03/19/17 09:57 Dose: 81 mg Atorvastatin Calcium (Lipitor) 10 mg PO HS [facility] Last Admin: 03/18/17 21:54 Dose: 10 mg Enalapril Maleate (Vasotec) 5 mg PO DAILY [facility] Last Admin: 03/19/17 09:56 Dose: 5 mg Enoxaparin Sodium (Lovenox) 40 mg SC DAILY [facility] PRN Reason: Protocol Last Admin: 03/19/17 08:17 Dose: 40 mg Home Med (Memantine Hcl/Donepezil Hcl [Namzaric 28 Mg-10 Mg Capsule]) 1 each PO DAILY [facility] Last Admin: 03/19/17 09:55 Dose: 1 each Ceftriaxone Sodium 1 gm/ (Sodium Chloride) 100 mls @ 100 mls/hr IVPB DAILY [facility] PRN Reason: Protocol Last Admin: 03/19/17 08:16 Dose: 100 mls/hr Lacosamide (Vimpat) 100 mg PO BID [facility] Last Admin: 03/19/17 11:00 Dose: 100 mg Lactobacillus Acidophilus (Bacid Acidophilus) 1 cap PO BID [facility] Last Admin: 03/19/17 09:55 Dose: 1 cap Levothyroxine Sodium (Synthroid) 88 mcg PO DAILY@0630 [facility] Last Admin: 03/19/17 08:17 Dose: 88 mcg Lorazepam (Ativan) 1 mg IVP Q6 PRN PRN Reason: seizures Tamsulosin HCl (Flomax) 0.4 mg PO DAILY [facility] Last Admin: 03/19/17 09:55 Dose: 0.4 mg - Labs Labs: 03/19/17 04:25 03/19/17 04:25 PT 12.9 Seconds (9.8-13.1) 03/19/17 04:25 INR 1.2 (0.9-1.2) 03/19/17 04:25 - Constitutional Appears: No Acute Distress - Head Exam Head Exam: NORMAL INSPECTION - Neurological Exam Neurological Exam: Awake Neuro motor strength exam: Left Upper Extremity: 5, Right Upper Extremity: 5, Left Lower Extremity: 5, Right Lower Extremity: 5 Additional comments: Speech is fragmentary. Severe dementia. Unable to follow commands fully. But , moves all extremities and sensation is intact. Reflexes are normal Assessment and Plan (1) Seizure Assessment & Plan: Case discussed with Dr. Mayberry, continue all current medical regimen including Vimpat. To follow up with her neurologist as an outpatient. Status: Acute
[2017-03-19 14:00] LABS: FOLATE 6.4 ng/mL
[2017-03-19 15:44] VITALS: BP 113/70; PULSE 74; TEMP 97.8; O2SAT 98
== END 2017-03-19 16:30 | disposition home or self-care (01) | DRG 101 ==
LOC: H.ER 00:31 → H.ERHOLD 02:51 → H.TEL 04:12
PROVIDERS: ADMIT Internal Medicine; ATTEND Internal Medicine
DX: G40.409 Other generalized epilepsy and epileptic syndromes, not intractable, without status epilepticus (principal); G30.9 Alzheimer's disease, unspecified; N39.0 Urinary tract infection, site not specified; S37.99XA Other injury of unspecified urinary and pelvic organ, initial encounter; F02.80 Dementia in other diseases classified elsewhere, unspecified severity, without behavioral disturbance, psychotic disturbance, mood disturbance, and anxiety; R31.9 Hematuria, unspecified; E03.9 Hypothyroidism, unspecified; E78.5 Hyperlipidemia, unspecified; I10 Essential (primary) hypertension; R32 Unspecified urinary incontinence; Z79.899 Other long term (current) drug therapy; R33.9 Retention of urine, unspecified

== ENCOUNTER 2017-05-08 00:22 | Inpatient (IN) | payer MEDICARE, MEDICAID ==
[2017-05-08 00:22] VITALS: BMI 22.3
[2017-05-08] MEDS ORDERED: levETIRAcetam 500 MG in Sodium Chloride 0.9% 100 ML IVPB ONE (01:15)
[2017-05-08 03:04] LABS: BASO # 0.1 K/uL (0.0-0.2); BASO % 0.7 % (0.0-2.0); EOS # 0.3 K/uL (0.0-0.7); EOS % 2.2 % (0.0-4.0); HEMOGLOBIN 11.2 g/dL (12.0-16.0); LYMPH # 2.8 K/uL (1.0-4.3); LYMPH % 22.4 % (20.0-40.0); MEAN CELL VOLUME 77.5 fl (81.0-99.0); MEAN CORPUSCULAR HGB CONC 32.3 g/dL (33.0-37.0); MEAN PLATELET VOLUME 8.2 fl (7.2-11.7); MONO # 1.6 K/uL (0.0-0.8); MONO % 12.7 % (0.0-10.0); NEUT # 7.9 K/uL (1.8-7.0); NRBC % 0.1 % (0.0-0.0); RBC 4.45 Mil/uL (3.80-5.20); RED CELL DISTRIBUTION WIDTH 21.5 % (11.5-14.5); WHITE BLOOD COUNT 12.7 K/uL (4.8-10.8)
[2017-05-08 03:12] LABS: ALB/GLOB RATIO 1.1 (1.0-2.1); ALBUMIN 3.7 g/dL (3.5-5.0); ALT/SGPT 17 U/L (9-52); AST/SGOT 14 U/L (14-36); BLOOD UREA NITROGEN 9 mg/dl (7-17); CALCIUM 8.9 mg/dL (8.4-10.2); GFR AFRICAN-AMERICAN > 60; GFR NON-AFRICAN AMERICAN > 60
--- NOTE | 2017-05-08 04:30 | ED PDOC ---
HPI: Seizure Time Seen by Provider: 05/08/17 00:39 Chief Complaint (Nursing): Altered Mental Status Chief Complaint (Provider): Seizure History Per: Family History/Exam Limitations: clinical condition (dementia) Recent Seizure Activity Began: Hours Ago: Number Of Seizures: One Length Of Seizures (Duration): Unknown Additional Complaint(s): 72 year old female brought in by EMS and accompanied by family presents to ED status post seizure at alf and has a past medical history of dementia and a seizure disorder. Family states alf report says seizure occurred either 4 or 7 hours ago. Family notes all medication is given at the alf, including Keppra 250mg BID. PCP: Dr. Cobb Past Medical History Reviewed: Historical Data, Nursing Documentation, Vital Signs Vital Signs: Last Vital Signs Temp 98.8 F 05/08/17 07:43 Pulse 87 05/08/17 07:43 Resp 16 05/08/17 07:43 BP 101/65 05/08/17 07:43 Pulse Ox 98 05/08/17 07:40 - Medical History PMH: Alzheimer's Disease, Dementia, HTN, Hypothyroidism, Seizures - Family History Family History: States: Unknown Family Hx - Living Arrangements Living Arrangements: [facility] - Social History Alcohol: None Drugs: Denies - Home Medications Home Medications: Ambulatory Orders Medication Instructions Recorded Atorvastatin [Lipitor] 10 mg PO HS 03/17/17 Enalapril Maleate [Vasotec] 5 mg PO DAILY 03/17/17 Memantine HCl/Donepezil HCl 1 each PO DAILY 03/17/17 [Namzaric 28 mg-10 mg Capsule] Mirtazapine [Remeron] 15 mg PO HS 03/17/17 Levothyroxine [Synthroid] 88 mcg PO DAILY@0630 #30 tab 03/19/17 Acidoph/L.bulg/Bif.b/S.thermop 1 tab PO BID 05/08/17 [Bacid Caplet] Lacosamide [Vimpat] 50 mg PO BID 05/08/17 Magnesium Hydroxide [Milk Of 30 ml PO HS PRN 05/08/17 Magnesia] Nystatin [Nyamyc] 1 applic TOP TID 05/08/17 levETIRAcetam [Keppra] 500 mg PO BID 05/08/17 - Allergies Allergies/Adverse Reactions: Allergies Allergy/AdvReac Type Severity Reaction Status Date / Time No Known Allergies Allergy Verified 05/08/17 00:24 Review of Systems Review Of Systems: ROS cannot be obtained secondary to pt's inabilty to answer questions. (due to patient's dementia) Physical Exam - Reviewed Nursing Documentation Reviewed: Yes Vital Signs Reviewed: Yes - Physical Exam Appears: Positive for: Non-toxic, No Acute Distress (tired-appearing) Skin: Positive for: Warm, Dry, Pallor Eye Exam: Positive for: Normal appearance, EOMI, PERRL ENT: Positive for: Normal ENT Inspection Neck: Positive for: Normal, Painless ROM, Supple Cardiovascular/Chest: Positive for: Regular Rate, Rhythm. Negative for: Murmur Respiratory: Positive for: Normal Breath Sounds. Negative for: Respiratory Distress Gastrointestinal/Abdominal: Positive for: Soft. Negative for: Tenderness Extremity: Positive for: Normal ROM. Negative for: Deformity Neurologic/Psych: Positive for: Alert. Negative for: Oriented (follows some commands ), Motor/Sensory Deficits (all extremities are movable) - Laboratory Results Result Diagrams: 05/08/17 02:57 05/08/17 02:57 - ECG O2 Sat by Pulse Oximetry: 96 (RA) Pulse Ox Interpretation: Normal Medical Decision Making Medical Decision Makin Initial impression: recurrent seizure Initial plan: * EKG * Labs * Lact Acid * Levetiracetam 500mg 100mL IVPB * UCx * Re-eval 0142 * CXR 0246 * Levetiracetam level 0327 * UA * Pt. still lethargic 0700 Patient still post-ictal, however demented so difficult to ascertain level of consciousness. Ct shows no acute findings. Dr. Mayberry recommends increasing keppra to 500mg. Admitted to Dr. Cobb for seizure and prolonged post ictal state. Scribe Attestation: Documented by Ghislaine Rao acting as a scribe for Cullen Segovia MD. Scribe Attestation: All medical record entries made by the Scribe were at my direction and personally dictated by me. I have reviewed the chart and agree that the record accurately reflects my personal performance of the history, physical exam, medical decision making, and the department course for this patient. I have also personally directed, reviewed, and agree with the discharge instructions and disposition. Disposition - Clinical Impression Clinical Impression: Seizure - Disposition Disposition Time: 07:00 Condition: FAIR
[2017-05-08 05:14] LABS: SQUAMOUS EPITHIAL < 1 /hpf (0-5); URINE AMORPHOUS SEDIMENT RARE /ul (<OCC); URINE BACTERIA RARE (<OCC); URINE BILIRUBIN NEGATIVE (NEGATIVE); URINE BLOOD SMALL (NEGATIVE); URINE CLARITY CLOUDY (Clear); URINE COLOR YELLOW (YELLOW); URINE GLUCOSE (UA) NEG (Normal); URINE LEUKOCYTE ESTERASE NEG Leu/uL (Negative); URINE NITRATE NEGATIVE (NEGATIVE); URINE PROTEIN 30 mg/dL (NEGATIVE); URINE UROBILINOGEN 0.2-1.0 mg/dL (0.2-1.0)
[2017-05-08] MEDS ORDERED: Levothyroxine 88 MCG TAB PO STA (05:58)
--- NOTE | 2017-05-08 06:35 | CT ---
EXAM: CT Head Without Intravenous Contrast CLINICAL HISTORY: 72 years old, female; Signs and symptoms; Other: Seizures; Additional info: Seizure, prolonged post ictal TECHNIQUE: Axial computed tomography images of the head/brain without intravenous contrast. All CT scans at this facility use one or more dose reduction techniques, viz.: automated exposure control; ma/kV adjustment per patient size (including targeted exams where dose is matched to indication; i.e. head); or iterative reconstruction technique. Coronal and sagittal reformatted images were created and reviewed. COMPARISON: CT - HEAD W/O CONTRAST 2017-03-17 01:37 FINDINGS: Brain: Moderate atrophy. No intracranial hemorrhage. No mass. Minimal decreased attenuation within periventricular white matter. No definite edema. Ventricles: No hydrocephalus. Bones/joints: No acute fracture. Chronic fracture deformity of RIGHT zygomatic arch. Soft tissues: Unremarkable. Vasculature: Minimal atherosclerotic disease of intracranial arteries. Sinuses: Scattered minimal mucosal thickening. LEFT maxillary retention cyst. Mastoid air cells: No mastoid effusion. Orbits: Unremarkable as visualized. IMPRESSION: 1. Nonspecific white matter changes. Acute infarction may be CT occult within first 24 hours. If a focal deficit persists, consider followup CT or MRI for further evaluation. 2. Incidental/non-acute findings are described above.
--- NOTE | 2017-05-08 09:36 | RAD ---
HISTORY: seizure COMPARISON: Chest radiograph dated 03/17/2017. FINDINGS: LUNGS: Stable chronic prominence of the bilateral interstitial markings. Questionable right basilar infiltrate. PLEURA: No significant pleural effusion identified, no pneumothorax apparent. CARDIOVASCULAR: Normal. OSSEOUS STRUCTURES: Ranged. VISUALIZED UPPER ABDOMEN: Normal. OTHER FINDINGS: None. IMPRESSION: Questionable right basilar infiltrate. Patient admitted.
[2017-05-08] MEDS ORDERED: Magnesium Hydroxide Susp 30 ml UD PO PRN (09:53)
[2017-05-08] MEDS: Sodium Chloride 0.9% 1,000 ML IV SCH (10:01)
--- NOTE | 2017-05-08 16:18 | CT ---
PROCEDURE: CT scan chest dated 05/08/2017 HISTORY: Cough lethargy leukocytosis COMPARISON: Comparison made with chest radiograph same day. TECHNIQUE: Contiguous helical/transaxial images were obtained through the chest without intravenous contrast enhancement. Sagittal and coronal reconstructions were performed. Radiation dose (DLP): 543.72 mGy-cm. This CT exam was performed using one or more of the following dose reduction techniques: Automated exposure control, adjustment of the mA and/or kV according to patient size, and/or use of iterative reconstruction technique. . FINDINGS: LUNGS: Mild localized atelectasis/ scarring both posterior sulci with mild passive/ dependent atelectasis in the posterior margins of the lower and upper lobes. No acute consolidation. No discrete parenchymal masses or nodules seen. MEDIASTINUM: Heart is enlarged. No significant pericardial effusion. The ascending thoracic aorta measures approximately 3.29 cm and descending thoracic aorta measures approximately 2.4 cm. Pulmonary trunk measures approximately 2.52 cm. . There is a small amount of a amorphous low-density within the mediastinum anterior to the trachea and pretracheal region that is felt to represent a small amount of nonspecific fluid. Clinic correlation recommended. There is a small hiatal hernia with slight wall thickening of the distal esophagus likely due to protrusion of gastric mucosa. Possibility of esophagitis not excluded. [place]en PLEURA: No pleural fluid. No pneumothorax. BONES: No fracture. No destructive lesion. UPPER ABDOMEN: The stomach is collapsed which presumably in part accounts for thick-walled appearance. Possibility of gastritis or other intrinsic/invasive wall lesion cannot be excluded. The visualized portions of the pancreas appears slightly atrophic and fatty replaced. OTHER FINDINGS: None. IMPRESSION: No acute consolidation. Mild localized atelectasis/ scarring both posterior sulci with mild passive/ dependent atelectasis in the posterior margins of the lower and upper lobes.
--- NOTE | 2017-05-08 16:29 | CP.PCM.HP ---
History of Present Illness - History of Present Illness History of Present Illness: CC: Seizure. 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 As per records; Pt had an episode of Seizure about 9 pm, unknown length of episode, no head trauma but prolonged ictal state. Worsening symptoms: Hx of advance Dementia, Alzheimer's Disease. Aggravated factor: Unable to answer questions. No: Fever, chills, abdominal pain, vomiting, diarrhea, CP, cough, CP, palpitations, sick contact. PMHx; Recently Dx with Seizure (2017), Advance Dementia. Alzheimer's Disease, HTN, Hypothyroidism, Hyperlipidimia, Hx of recent UTI. Head CT shows: Non specific white matter changes. Present on Admission - Present on Admission Any Indicators Present on Admission: No Review of Systems - Review of Systems Systems not reviewed;Unavailable: Acuity of Condition, Dementia Past Patient History - Past Medical History & Family History Past Medical History?: Yes Pertinent Family History: Unknown - Past Social History Smoking Status: Never Smoked Alcohol: None Drugs: Denies Home Situation {Lives}: Penitentiary - CARDIAC Hx Cardiac Disorders: Yes Hx Hypercholesterolemia: Yes Hx Hypertension: Yes - PULMONARY Hx Respiratory Disorders: No - NEUROLOGICAL Hx Neurological Disorder: Yes Hx Alzheimer's Disease: Yes Hx Dementia: Yes Hx Seizures: Yes - HEENT Hx HEENT Problems: No - RENAL Hx Chronic Kidney Disease: No - ENDOCRINE/METABOLIC Hx Endocrine Disorders: Yes Hx Hypothyroidism: Yes - HEMATOLOGICAL/ONCOLOGICAL Hx Blood Disorders: No Hx AIDS: No Hx Human Immunodeficiency Virus (HIV): No - INTEGUMENTARY Hx Dermatological Problems: No - MUSCULOSKELETAL/RHEUMATOLOGICAL Hx Musculoskeletal Disorders: No Hx Falls: No - GASTROINTESTINAL Hx Gastrointestinal Disorders: No - GENITOURINARY/GYNECOLOGICAL Hx Genitourinary Disorders: No - PSYCHIATRIC Hx Psychophysiologic Disorder: No Hx Substance Use: No - SURGICAL HISTORY Hx Surgeries: No - ANESTHESIA Hx Anesthesia: No Hx Anesthesia Reactions: No Hx Malignant Hyperthermia: No Has any member of the family had a problem w/ anesthesia?: No Meds Allergies/Adverse Reactions: Allergies Allergy/AdvReac Type Severity Reaction Status Date / Time No Known Allergies Allergy Verified 05/08/17 00:24 Physical Exam - Constitutional Appears: Chronically Ill - Head Exam Head Exam: NORMAL INSPECTION - Eye Exam Eye Exam: PERRL - ENT Exam ENT Exam: Normal Exam - Neck Exam Neck exam: Positive for: Normal Inspection - Respiratory Exam Respiratory Exam: NORMAL BREATHING PATTERN - Cardiovascular Exam Cardiovascular Exam: REGULAR RHYTHM - GI/Abdominal Exam GI & Abdominal Exam: Normal Bowel Sounds, Soft - Extremities Exam Extremities exam: Positive for: normal inspection - Neurological Exam Neurological exam: Reflexes Normal Additional comments: Lethargic, Confused, disoriented. - Psychiatric Exam Additional comments: Calm. - Skin Skin Exam: Warm Results - Vital Signs Recent Vital Signs: Last Vital Signs Temp 98.4 F 05/08/17 15:30 Pulse 83 05/08/17 15:30 Resp 20 05/08/17 15:30 BP 118/80 05/08/17 15:30 Pulse Ox 98 05/08/17 15:30 reviewed Moise - Labs Result Diagrams: 05/08/17 02:57 05/08/17 02:57 Labs: Laboratory Results - last 24 hr 05/08/17 05/08/17 05/08/17 02:57 02:57 02:59 WBC 12.7 H RBC 4.45 Hgb 11.2 L Hct 34.5 MCV 77.5 L MCH 25.0 L MCHC 32.3 L RDW 21.5 H Plt Count 358 MPV 8.2 Neut % (Auto) 62.0 Lymph % (Auto) 22.4 [place] % (Auto) 12.7 H Eos % (Auto) 2.2 Baso % (Auto) 0.7 Neut # (Auto) 7.9 H Lymph # (Auto) 2.8 [place] # (Auto) 1.6 H Eos # (Auto) 0.3 Baso # (Auto) 0.1 Sodium 138 Potassium 3.7 Chloride 103 Carbon Dioxide 22 Anion Gap 17 BUN 9 Creatinine 0.7 Est GFR ( Amer) > 60 Est GFR (Non-Af Amer) > 60 Random Glucose 106 H Lactic Acid 0.9 Calcium 8.9 Total Bilirubin 0.8 AST 14 ALT 17 Alkaline Phosphatase 72 Total Protein 7.0 Albumin 3.7 Globulin 3.4 Albumin/Globulin Ratio 1.1 Urine Color Urine Clarity Urine pH Ur Specific [place] Urine Protein Urine Glucose (UA) Urine Ketones Urine Blood Urine Nitrate Urine Bilirubin Urine Urobilinogen Ur Leukocyte Esterase Urine RBC (Auto) Urine Microscopic WBC Ur Squamous Epith Cells Amorphous Sediment Urine Bacteria Hyaline Casts 05/08/17 04:58 WBC RBC Hgb Hct MCV MCH MCHC RDW Plt Count MPV Neut % (Auto) Lymph % (Auto) Greene % (Auto) Eos % (Auto) Baso % (Auto) Neut # (Auto) Lymph # (Auto) Greene # (Auto) Eos # (Auto) Baso # (Auto) Sodium Potassium Chloride Carbon Dioxide Anion Gap BUN Creatinine Est GFR ( Amer) Est GFR (Non-Af Amer) Random Glucose Lactic Acid Calcium Total Bilirubin AST ALT Alkaline Phosphatase Total Protein Albumin Globulin Albumin/Globulin Ratio Urine Color Yellow Urine Clarity Cloudy Urine pH 5.0 Ur Specific [place] 1.026 Urine Protein 30 Urine Glucose (UA) Neg Urine Ketones Negative Urine Blood Small Urine Nitrate Negative Urine Bilirubin Negative Urine Urobilinogen 0.2-1.0 Ur Leukocyte Esterase Neg Urine RBC (Auto) 5 H Urine Microscopic WBC 2 Ur Squamous Epith Cells < 1 Amorphous Sediment Rare H Urine Bacteria Rare Hyaline Casts 6-10 H reviewed J.P. - Imaging and Cardiology Chest x-ray Status: Report reviewed by me (EshaP.) CT scan - head Status: Report reviewed by me (EshaP.) Assessment & Plan (1) Seizure Status: Acute Priority: High (2) HLD (hyperlipidemia) Status: Chronic Priority: Medium (3) HTN (hypertension) Status: Chronic Priority: Medium (4) Hypothyroid Status: Chronic Priority: Medium (5) Dementia Status: Chronic Priority: High - Assessment and Plan (Free Text) Plan: F/U Chest CT, Stool & parasite, U C-S, Stool C-S, continue Zosyn, Keppra, Fluid IV and rest of Tx. Neurology consult. - Date & Time Date: 05/08/17 Time: 11:30
--- NOTE | 2017-05-08 17:12 | CP.PCM.CON ---
History of Present Illness - History of Present Illness History of Present Illness: Mrs. Kirill Bray is a 72-year-old woman with a past medical history of dementia and epilepsy (on Keppra 250 BID), who had a seizure at the correction an was brought in post-ictal. She was loaded with Keppra and has not had any seizures since. Review of Systems - Review of Systems All systems: reviewed and no additional remarkable complaints except Past Patient History - Past Medical History & Family History Past Medical History?: Yes - Past Social History Smoking Status: Never Smoked - CARDIAC Hx Cardiac Disorders: Yes Hx Hypertension: Yes - PULMONARY Hx Respiratory Disorders: No - NEUROLOGICAL Hx Neurological Disorder: Yes Hx Alzheimer's Disease: Yes Hx Dementia: Yes Hx Seizures: Yes - HEENT Hx HEENT Problems: No - RENAL Hx Chronic Kidney Disease: No - ENDOCRINE/METABOLIC Hx Endocrine Disorders: Yes Hx Hypothyroidism: Yes - HEMATOLOGICAL/ONCOLOGICAL Hx Blood Disorders: No Hx AIDS: No Hx Human Immunodeficiency Virus (HIV): No - INTEGUMENTARY Hx Dermatological Problems: No - MUSCULOSKELETAL/RHEUMATOLOGICAL Hx Musculoskeletal Disorders: No Hx Falls: No - GASTROINTESTINAL Hx Gastrointestinal Disorders: No - GENITOURINARY/GYNECOLOGICAL Hx Genitourinary Disorders: No - PSYCHIATRIC Hx Psychophysiologic Disorder: No Hx Substance Use: No - SURGICAL HISTORY Hx Surgeries: No - ANESTHESIA Hx Anesthesia: No Hx Anesthesia Reactions: No Hx Malignant Hyperthermia: No Has any member of the family had a problem w/ anesthesia?: No Meds Allergies/Adverse Reactions: Allergies Allergy/AdvReac Type Severity Reaction Status Date / Time No Known Allergies Allergy Verified 05/08/17 00:24 - Medications Medications: Current Medications Atorvastatin Calcium (Lipitor) 10 mg PO HS [facility] Enalapril Maleate (Vasotec) 5 mg PO DAILY [facility] Enoxaparin Sodium (Lovenox) 40 mg SC DAILY [facility] PRN Reason: Protocol Sodium Chloride (Sodium Chloride 0.9%) 1,000 mls @ 60 mls/hr IV .[id number] [facility] Stop: 05/09/17 09:53 Last Admin: 05/08/17 10:01 Dose: 60 mls/hr Piperacillin Sod/Tazobactam (Sod 3.375 gm/ Sodium Chloride) 100 mls @ 100 mls/ hr IVPB Q8 [facility] PRN Reason: Protocol Levetiracetam (Keppra) 500 mg PO BID [facility] Levothyroxine Sodium (Synthroid) 88 mcg PO DAILY@0630 [facility] Magnesium Hydroxide (Milk Of Magnesia) 30 ml PO HS PRN PRN Reason: Constipation Mirtazapine (Remeron) 15 mg PO HS [facility] Nystatin (Nystop Topical Powder) 1 applic TOP TID [facility] Last Admin: 05/08/17 16:59 Dose: Not Given Physical Exam - Neurological Exam Additional comments: Somnolent. Baseline dementia, CN 2-12 intact, moves all extremities, no focal weakness, sensation is intact, did not ambulate, reflexes normal. Results - Vital Signs Recent Vital Signs: Last Vital Signs Temp 98.4 F 05/08/17 15:30 Pulse 83 05/08/17 15:30 Resp 20 05/08/17 15:30 BP 118/80 05/08/17 15:30 Pulse Ox 98 05/08/17 15:30 - Labs Result Diagrams: 05/08/17 02:57 05/08/17 02:57 Labs: Laboratory Results - last 24 hr 05/08/17 05/08/17 05/08/17 02:57 02:57 02:59 WBC 12.7 H RBC 4.45 Hgb 11.2 L Hct 34.5 MCV 77.5 L MCH 25.0 L MCHC 32.3 L RDW 21.5 H Plt Count 358 MPV 8.2 Neut % (Auto) 62.0 Lymph % (Auto) 22.4 [place] % (Auto) 12.7 H Eos % (Auto) 2.2 Baso % (Auto) 0.7 Neut # (Auto) 7.9 H Lymph # (Auto) 2.8 [place] # (Auto) 1.6 H Eos # (Auto) 0.3 Baso # (Auto) 0.1 Sodium 138 Potassium 3.7 Chloride 103 Carbon Dioxide 22 Anion Gap 17 BUN 9 Creatinine 0.7 Est GFR ( Amer) > 60 Est GFR (Non-Af Amer) > 60 Random Glucose 106 H Lactic Acid 0.9 Calcium 8.9 Total Bilirubin 0.8 AST 14 ALT 17 Alkaline Phosphatase 72 Total Protein 7.0 Albumin 3.7 Globulin 3.4 Albumin/Globulin Ratio 1.1 Urine Color Urine Clarity Urine pH Ur Specific [place] Urine Protein Urine Glucose (UA) Urine Ketones Urine Blood Urine Nitrate Urine Bilirubin Urine Urobilinogen Ur Leukocyte Esterase Urine RBC (Auto) Urine Microscopic WBC Ur Squamous Epith Cells Amorphous Sediment Urine Bacteria Hyaline Casts 05/08/17 04:58 WBC RBC Hgb Hct MCV MCH MCHC RDW Plt Count MPV Neut % (Auto) Lymph % (Auto) [place] % (Auto) Eos % (Auto) Baso % (Auto) Neut # (Auto) Lymph # (Auto) [place] # (Auto) Eos # (Auto) Baso # (Auto) Sodium Potassium Chloride Carbon Dioxide Anion Gap BUN Creatinine Est GFR ( Amer) Est GFR (Non-Af Amer) Random Glucose Lactic Acid Calcium Total Bilirubin AST ALT Alkaline Phosphatase Total Protein Albumin Globulin Albumin/Globulin Ratio Urine Color Yellow Urine Clarity Cloudy Urine pH 5.0 Ur Specific [place] 1.026 Urine Protein 30 Urine Glucose (UA) Neg Urine Ketones Negative Urine Blood Small Urine Nitrate Negative Urine Bilirubin Negative Urine Urobilinogen 0.2-1.0 Ur Leukocyte Esterase Neg Urine RBC (Auto) 5 H Urine Microscopic WBC 2 Ur Squamous Epith Cells < 1 Amorphous Sediment Rare H Urine Bacteria Rare Hyaline Casts 6-10 H Assessment & Plan (1) Seizure Assessment and Plan: I recommend increasing Keppra to 500 mg BID and treating underlying infection. May discharge back to correction when medically cleared. Thank you. Status: Acute Priority: High
[2017-05-08] MEDS: Piperacillin/Tazobact 3.375 GM in Sodium Chloride 0.9% 100 ML IVPB SCH (17:16)
[2017-05-09] MEDS: Piperacillin/Tazobact 3.375 GM in Sodium Chloride 0.9% 100 ML IVPB SCH ×3 (01:21→17:10)
[2017-05-09] MEDS: Sodium Chloride 0.9% 1,000 ML IV SCH (05:21)
[2017-05-09 05:33] LABS: HEMOGLOBIN 10.3 g/dL (12.0-16.0); MEAN CORPUSCULAR HEMOGLOBIN 25.1 pg (27.0-31.0); MEAN CORPUSCULAR HGB CONC 32.2 g/dL (33.0-37.0); RBC 4.09 Mil/uL (3.80-5.20); RED CELL DISTRIBUTION WIDTH 21.5 % (11.5-14.5); WHITE BLOOD COUNT 7.9 K/uL (4.8-10.8)
[2017-05-09] MEDS: Levothyroxine 88 MCG TAB PO SCH (05:36)
--- NOTE | 2017-05-09 10:17 | CP.PCM.PN ---
Subjective - Date & Time of Evaluation Date of Evaluation: 05/09/17 Time of Evaluation: 10:14 - Subjective Subjective: Ms. Kirill Bray was seen and examined at the bedside. She is more awake, alert. She is unable to answer any questions, but able to tolerate PO intake. She moves all her extremities spontaneously. There was no untoward events overnight. Objective - Vital Signs/Intake and Output Vital Signs (last 24 hours): Temp Pulse Resp BP Pulse Ox 98.7 F 78 18 95/60 L 97 05/09/17 08:00 05/09/17 08:00 05/09/17 08:00 05/09/17 08:00 05/09/17 08:00 - Medications Medications: Current Medications Atorvastatin Calcium (Lipitor) 10 mg PO [facility] Last Admin: 05/08/17 22:02 Dose: 10 mg Enalapril Maleate (Vasotec) 5 mg PO DAILY [facility] Enoxaparin Sodium (Lovenox) 40 mg SC DAILY [facility] PRN Reason: Protocol Piperacillin Sod/Tazobactam (Sod 3.375 gm/ Sodium Chloride) 100 mls @ 100 mls/ hr IVPB Q8 [facility] PRN Reason: Protocol Last Admin: 05/09/17 01:21 Dose: 100 mls/hr Levetiracetam (Keppra) 500 mg PO BID [facility] Last Admin: 05/08/17 17:17 Dose: 500 mg Levothyroxine Sodium (Synthroid) 88 mcg PO DAILY@0630 [facility] Last Admin: 05/09/17 05:36 Dose: 88 mcg Magnesium Hydroxide (Milk Of Magnesia) 30 ml PO HS PRN PRN Reason: Constipation Mirtazapine (Remeron) 15 mg PO [facility] Last Admin: 05/08/17 22:02 Dose: Not Given Nystatin (Nystop Topical Powder) 1 applic TOP TID [facility] Last Admin: 05/08/17 17:17 Dose: 1 applic - Labs Labs: 05/09/17 04:25 05/08/17 02:57 - Constitutional Appears: No Acute Distress - Head Exam Head Exam: NORMAL INSPECTION - Neurological Exam Neurological Exam: Awake Neuro motor strength exam: Left Upper Extremity: 4, Right Upper Extremity: 4, Left Lower Extremity: 4, Right Lower Extremity: 4 Additional comments: She is non-verbal, but moves all extremities spontaneously. Sensation remains intact. Assessment and Plan (1) Seizure Assessment & Plan: Case discussed with Dr. Mayberry, continue all current medical regimen including new dose of AED. Recommend to refer to endocrinology regarding elevated TSH. May transfer back to custodial when medically stable. Status: Acute
[2017-05-09] MEDS: Enoxaparin 40 mg Syringe SC SCH (10:41)
--- NOTE | 2017-05-09 12:46 | CP.PCM.DIS ---
Provider - Provider Date of Admission: 05/09/17 07:00 Attending physician: Richard Cobb MD Primary care physician: Richard Cobb MD Diagnosis - Discharge Diagnosis (1) Seizure Status: Acute Priority: High (2) HLD (hyperlipidemia) Status: Chronic Priority: Medium (3) HTN (hypertension) Status: Chronic Priority: Medium (4) Hypothyroid Status: Chronic Priority: Medium (5) Dementia Status: Chronic Priority: High Hospital Course - Lab Results Lab Results: Most Recent Lab Values WBC 7.9 K/uL (4.8-10.8) 05/09/17 04:25 RBC 4.09 Mil/uL (3.80-5.20) 05/09/17 04:25 Hgb 10.3 g/dL (12.0-16.0) L 05/09/17 04:25 Hct 31.9 % (34.0-47.0) L 05/09/17 04:25 MCV 78.0 fl (81.0-99.0) L 05/09/17 04:25 MCH 25.1 pg (27.0-31.0) L 05/09/17 04:25 MCHC 32.2 g/dL (33.0-37.0) L 05/09/17 04:25 RDW 21.5 % (11.5-14.5) H 05/09/17 04:25 Plt Count 324 K/uL (130-400) 05/09/17 04:25 MPV 8.2 fl (7.2-11.7) 05/08/17 02:57 Neut % (Auto) 62.0 % (50.0-75.0) 05/08/17 02:57 Lymph % (Auto) 22.4 % (20.0-40.0) 05/08/17 02:57 Citrus % (Auto) 12.7 % (0.0-10.0) H 05/08/17 02:57 Eos % (Auto) 2.2 % (0.0-4.0) 05/08/17 02:57 Baso % (Auto) 0.7 % (0.0-2.0) 05/08/17 02:57 Neut # (Auto) 7.9 K/uL (1.8-7.0) H 05/08/17 02:57 Lymph # (Auto) 2.8 K/uL (1.0-4.3) 05/08/17 02:57 Citrus # (Auto) 1.6 K/uL (0.0-0.8) H 05/08/17 02:57 Eos # (Auto) 0.3 K/uL (0.0-0.7) 05/08/17 02:57 Baso # (Auto) 0.1 K/uL (0.0-0.2) 05/08/17 02:57 Sodium 138 mmol/l (132-148) 05/08/17 02:57 Potassium 3.7 MMOL/L (3.6-5.0) 05/08/17 02:57 Chloride 103 mmol/L (98-107) 05/08/17 02:57 Carbon Dioxide 22 mmol/L (22-30) 05/08/17 02:57 Anion Gap 17 (10-20) 05/08/17 02:57 BUN 9 mg/dl (7-17) 05/08/17 02:57 Creatinine 0.7 mg/dl (0.7-1.2) 05/08/17 02:57 Est GFR ( Amer) > 60 05/08/17 02:57 Est GFR (Non-Af Amer) > 60 05/08/17 02:57 Random Glucose 106 mg/dL (65-105) H 05/08/17 02:57 Lactic Acid 0.9 MMOL/L (0.7-2.1) 05/08/17 02:59 Calcium 8.9 mg/dL (8.4-10.2) 05/08/17 02:57 Total Bilirubin 0.8 mg/dl (0.2-1.3) 05/08/17 02:57 AST 14 U/L (14-36) 05/08/17 02:57 ALT 17 U/L (9-52) 05/08/17 02:57 Alkaline Phosphatase 72 U/L (38-126) 05/08/17 02:57 Total Protein 7.0 G/DL (6.3-8.2) 05/08/17 02:57 Albumin 3.7 g/dL (3.5-5.0) 05/08/17 02:57 Globulin 3.4 gm/dL (2.2-3.9) 05/08/17 02:57 Albumin/Globulin Ratio 1.1 (1.0-2.1) 05/08/17 02:57 TSH 3rd Generation 5.95 mIU/ML (0.46-4.68) H 05/09/17 04:25 Urine Color Yellow (YELLOW) 05/08/17 04:58 Urine Clarity Cloudy (Clear) 05/08/17 04:58 Urine pH 5.0 (5.0-8.0) 05/08/17 04:58 Ur Specific [place] 1.026 (1.003-1.030) 05/08/17 04:58 Urine Protein 30 mg/dL (NEGATIVE) 05/08/17 04:58 Urine Glucose (UA) Neg mg/dL (Normal) 05/08/17 04:58 Urine Ketones Negative mg/dL (NEGATIVE) 05/08/17 04:58 Urine Blood Small (NEGATIVE) 05/08/17 04:58 Urine Nitrate Negative (NEGATIVE) 05/08/17 04:58 Urine Bilirubin Negative (NEGATIVE) 05/08/17 04:58 Urine Urobilinogen 0.2-1.0 mg/dL (0.2-1.0) 05/08/17 04:58 Ur Leukocyte Esterase Neg Kam/uL (Negative) 05/08/17 04:58 Urine RBC (Auto) 5 /hpf (0-3) H 05/08/17 04:58 Urine Microscopic WBC 2 /hpf (0-5) 05/08/17 04:58 Ur Squamous Epith Cells < 1 /hpf (0-5) 05/08/17 04:58 Amorphous Sediment Rare /ul (<OCC) H 05/08/17 04:58 Urine Bacteria Rare (<OCC) 05/08/17 04:58 Hyaline Casts 6-10 /hpf (0-2) H 05/08/17 04:58 Discharge Exam - Head Exam Head Exam: NORMAL INSPECTION Discharge Plan - Discharge Medications Prescriptions: Sulfamethoxazole/Trimethoprim [Bactrim DS 800 mg-160 mg] 1 tab PO Q12 #10 tab - Follow Up Plan Condition: FAIR Disposition: HOME/ ROUTINE Referrals: Richard Cobb MD [Primary Care Provider] -
--- NOTE | 2017-05-09 15:07 | PQF GENQUE ---
Dr. Cobb, Is there an associated dx. to go along with the order for Piperacillin IVPB Q8? OR: Disagree CXR: Impression: Questionable right basilar infiltrate. Chest CT: Impression No acute consolidation. Mild localized atelectasis/ scarring both posterior sulci with mild passive/ dependent atelectasis in the posterior margins of the lower and upper lobes. H and P:Seizure, onset about 9 PM day [employer], Pt in compliance with all meds including Keppra. As per records; Pt had an episode of Seizure about 9 pm, unknown length of episode, no head trauma but prolonged ictal state. Assessment(1) Seizure Status: Acute Priority: High (2) HLD (hyperlipidemia) Status: Chronic Priority: Medium (3) HTN (hypertension) Status: Chronic Priority: Medium (4) Hypothyroid Status: Chronic Priority: Medium (5) Dementia Status: Chronic Priority: High Plan: F/U Chest CT, Stool parasite, U C-S, Stool C-S, continue Zosyn, Keppra, Fluid IV and rest of Tx. Neurology consult. Neuro consult: Impression:Seizure: I recommend increasing Keppra to 500 mg BID and treating underlying infection This form is a permanent part of the medical record Clarification of your documentation is requested to better reflect the severity of illness and intensity of treatment of your patient. Indicators present [] Specify: [] [] Specify: [] [] Specify: [] [] Specify: [] Location in the medical record that reflects the above clinical findings: [] Treatment Provided: [] PHYSICIAN'S RESPONSE Based on your medical judgment of the clinical indicators outlined above please clarify the following: [] Practitioner response [] If unable to determine, please check the box, sign and date. Present On Admission (POA) Indicator: [] Present at the time of admission [] Not present at the time of admission [] Clinically Undetermined In responding to this query, please exercise your independent professional judgment. The fact that a question is asked does not imply that any particular answer is desired or expected. Thank you for your clarification on this documentation. If you have any questions please call. * Thank you, Wendy Moreno RN ext. #[phone] MTDD
[2017-05-09] MEDS: Vancomycin 500 mg (Oral/Rectal USE) PO SCH (21:30)
[2017-05-10] MEDS: metroNIDAZOLE 500mg/100ml NS 100 ML IVPB SCH ×2 (00:30→08:59)
[2017-05-10] MEDS: Piperacillin/Tazobact 3.375 GM in Sodium Chloride 0.9% 100 ML IVPB SCH ×2 (01:47→09:01)
[2017-05-10] MEDS: Levothyroxine 88 MCG TAB PO SCH (05:50)
[2017-05-10] MEDS: Enoxaparin 40 mg Syringe SC SCH (08:59)
[2017-05-10] MEDS: Vancomycin 500 mg (Oral/Rectal USE) PO SCH ×2 (09:00→13:05)
--- NOTE | 2017-05-10 09:02 | CP.PCM.PN ---
Subjective - Date & Time of Evaluation Date of Evaluation: 05/09/17 (This note is for 05/09/17. Patient was not discharged on 05/09/17.) Time of Evaluation: 13:00 - Subjective Subjective: F/U Seizure. Objective - Vital Signs/Intake and Output Vital Signs (last 24 hours): Temp Pulse Resp BP Pulse Ox 98.2 F 89 18 116/79 97 05/10/17 05:35 05/10/17 05:35 05/10/17 05:35 05/10/17 05:35 05/10/17 05:35 Intake and Output: 05/10/17 05/10/17 06:59 18:59 Intake Total 400 Balance 400 - Medications Medications: Current Medications Acetaminophen (Tylenol 325mg Tab) 650 mg PO Q4 PRN PRN Reason: Pain, Mild (1-3) Acetaminophen (Tylenol 325mg Tab) 650 mg PO Q4 PRN PRN Reason: Fever >100.4 F Atorvastatin Calcium (Lipitor) 10 mg PO HS [facility] Last Admin: 05/09/17 21:27 Dose: 10 mg Enalapril Maleate (Vasotec) 5 mg PO DAILY [facility] Last Admin: 05/10/17 09:00 Dose: 5 mg Enoxaparin Sodium (Lovenox) 40 mg SC DAILY [facility] PRN Reason: Protocol Last Admin: 05/10/17 08:59 Dose: 40 mg Piperacillin Sod/Tazobactam (Sod 3.375 gm/ Sodium Chloride) 100 mls @ 100 mls/ hr IVPB Q8 [facility] PRN Reason: Protocol Last Admin: 05/10/17 09:01 Dose: 100 mls/hr Metronidazole (Flagyl 500mg/100ml Ns) 100 mls @ 100 mls/hr IVPB Q8 [facility] PRN Reason: Protocol Last Admin: 05/10/17 08:59 Dose: 100 mls/hr Levetiracetam (Keppra) 500 mg PO BID [facility] Last Admin: 05/10/17 08:59 Dose: 500 mg Levothyroxine Sodium (Synthroid) 88 mcg PO DAILY@0630 [facility] Last Admin: 05/10/17 05:50 Dose: 88 mcg Magnesium Hydroxide (Milk Of Magnesia) 30 ml PO HS PRN PRN Reason: Constipation Mirtazapine (Remeron) 15 mg PO HS [facility] Last Admin: 05/09/17 21:26 Dose: 15 mg Nystatin (Nystop Topical Powder) 1 applic TOP TID [facility] Last Admin: 05/09/17 17:11 Dose: 1 applic Vancomycin HCl (Vancocin (Oral/Rectal Use)) 250 mg PO QID [facility] PRN Reason: Protocol Last Admin: 05/10/17 09:00 Dose: 250 mg - Labs Labs: 05/09/17 04:25 05/08/17 02:57 - Constitutional Appears: No Acute Distress - Head Exam Head Exam: NORMAL INSPECTION - Eye Exam Eye Exam: PERRL - ENT Exam ENT Exam: Normal Exam - Neck Exam Neck Exam: Normal Inspection - Respiratory Exam Respiratory Exam: NORMAL BREATHING PATTERN - Cardiovascular Exam Cardiovascular Exam: REGULAR RHYTHM - GI/Abdominal Exam GI & Abdominal Exam: Soft, Normal Bowel Sounds - Extremities Exam Extremities Exam: Normal Inspection - Neurological Exam Neurological Exam: Awake Additional comments: Lethargic, unable to follows commands. - Psychiatric Exam Additional comments: Calm - Skin Skin Exam: Warm Assessment and Plan (1) Seizure Status: Acute (2) HLD (hyperlipidemia) Status: Chronic (3) HTN (hypertension) Status: Chronic (4) Hypothyroid Status: Chronic (5) Dementia Status: Chronic
--- NOTE | 2017-05-10 09:12 | CP.PCM.PN ---
Subjective - Date & Time of Evaluation Date of Evaluation: 05/10/17 Time of Evaluation: 09:10 - Subjective Subjective: Ms. Kirill Bray was seen and examined at the bedside. She is awake, but confused. She is not restless or agitated. She is not able to answer any questions or follow any commands. She is able to move all extremities without any problem. There was no seizure-like activity noted. There was no untoward events overnight. Objective - Vital Signs/Intake and Output Vital Signs (last 24 hours): Temp Pulse Resp BP Pulse Ox 99.9 F H 88 20 121/76 96 05/10/17 08:00 05/10/17 08:00 05/10/17 08:00 05/10/17 08:00 05/10/17 08:00 Intake and Output: 05/10/17 05/10/17 06:59 18:59 Intake Total 400 Balance 400 - Medications Medications: Current Medications Acetaminophen (Tylenol 325mg Tab) 650 mg PO Q4 PRN PRN Reason: Pain, Mild (1-3) Acetaminophen (Tylenol 325mg Tab) 650 mg PO Q4 PRN PRN Reason: Fever >100.4 F Atorvastatin Calcium (Lipitor) 10 mg PO HS [facility] Last Admin: 05/09/17 21:27 Dose: 10 mg Enalapril Maleate (Vasotec) 5 mg PO DAILY [facility] Last Admin: 05/10/17 09:00 Dose: 5 mg Enoxaparin Sodium (Lovenox) 40 mg SC DAILY [facility] PRN Reason: Protocol Last Admin: 05/10/17 08:59 Dose: 40 mg Piperacillin Sod/Tazobactam (Sod 3.375 gm/ Sodium Chloride) 100 mls @ 100 mls/ hr IVPB Q8 [facility] PRN Reason: Protocol Last Admin: 05/10/17 09:01 Dose: 100 mls/hr Metronidazole (Flagyl 500mg/100ml Ns) 100 mls @ 100 mls/hr IVPB Q8 [facility] PRN Reason: Protocol Last Admin: 05/10/17 08:59 Dose: 100 mls/hr Levetiracetam (Keppra) 500 mg PO BID [facility] Last Admin: 05/10/17 08:59 Dose: 500 mg Levothyroxine Sodium (Synthroid) 88 mcg PO DAILY@0630 [facility] Last Admin: 05/10/17 05:50 Dose: 88 mcg Magnesium Hydroxide (Milk Of Magnesia) 30 ml PO HS PRN PRN Reason: Constipation Mirtazapine (Remeron) 15 mg PO HS [facility] Last Admin: 05/09/17 21:26 Dose: 15 mg Nystatin (Nystop Topical Powder) 1 applic TOP TID [facility] Last Admin: 05/09/17 17:11 Dose: 1 applic Vancomycin HCl (Vancocin (Oral/Rectal Use)) 250 mg PO QID [facility] PRN Reason: Protocol Last Admin: 05/10/17 09:00 Dose: 250 mg - Labs Labs: 05/09/17 04:25 05/08/17 02:57 - Constitutional Appears: No Acute Distress - Head Exam Head Exam: NORMAL INSPECTION - Neurological Exam Neurological Exam: Awake Neuro motor strength exam: Left Upper Extremity: 4, Right Upper Extremity: 4, Left Lower Extremity: 4, Right Lower Extremity: 4 Additional comments: Unable to answer any questions or follow commands. Assessment and Plan (1) Seizure Assessment & Plan: Case discussed with Dr. Mayberry, continue all current medical regimen including AED. Recommend to follow up with an outpatient neurologist upon discharge to monitor her seizure. Status: Acute
[2017-05-10 12:07] VITALS: TEMP 99.2; O2SAT 98
--- NOTE | 2017-05-10 15:42 | CP.PCM.PN ---
Subjective - Date & Time of Evaluation Date of Evaluation: 05/10/17 Objective - Vital Signs/Intake and Output Vital Signs (last 24 hours): Temp Pulse Resp BP Pulse Ox 99.2 F 90 18 96/63 L 98 05/10/17 12:00 05/10/17 12:00 05/10/17 12:00 05/10/17 12:00 05/10/17 12:00 Intake and Output: 05/10/17 05/10/17 06:59 18:59 Intake Total 400 Balance 400 - Medications Medications: Current Medications Acetaminophen (Tylenol 325mg Tab) 650 mg PO Q4 PRN PRN Reason: Pain, Mild (1-3) Acetaminophen (Tylenol 325mg Tab) 650 mg PO Q4 PRN PRN Reason: Fever >100.4 F Atorvastatin Calcium (Lipitor) 10 mg PO HS [facility] Last Admin: 05/09/17 21:27 Dose: 10 mg Enalapril Maleate (Vasotec) 5 mg PO DAILY [facility] Last Admin: 05/10/17 09:00 Dose: 5 mg Enoxaparin Sodium (Lovenox) 40 mg SC DAILY [facility] PRN Reason: Protocol Last Admin: 05/10/17 08:59 Dose: 40 mg Levetiracetam (Keppra) 500 mg PO BID [facility] Last Admin: 05/10/17 08:59 Dose: 500 mg Levothyroxine Sodium (Synthroid) 88 mcg PO DAILY@0630 [facility] Last Admin: 05/10/17 05:50 Dose: 88 mcg Magnesium Hydroxide (Milk Of Magnesia) 30 ml PO HS PRN PRN Reason: Constipation Mirtazapine (Remeron) 15 mg PO HS [facility] Last Admin: 05/09/17 21:26 Dose: 15 mg Nystatin (Nystop Topical Powder) 1 applic TOP TID [facility] Last Admin: 05/09/17 17:11 Dose: 1 applic Vancomycin HCl (Vancocin (Oral/Rectal Use)) 250 mg PO QID [facility] PRN Reason: Protocol Last Admin: 05/10/17 09:00 Dose: 250 mg - Labs Labs: 05/09/17 04:25 05/08/17 02:57 Assessment and Plan (1) Seizure Status: Acute (2) HLD (hyperlipidemia) Status: Chronic (3) HTN (hypertension) Status: Chronic (4) Hypothyroid Status: Chronic (5) Dementia Status: Chronic
[2017-05-10 15:44] VITALS: BP 99/63; PULSE 92; RESP 17
--- NOTE | 2017-05-10 16:51 | CP.PCM.DIS ---
Provider - Provider Date of Admission: 05/09/17 07:00 Attending physician: Richard Cobb MD Primary care physician: Richard Cobb MD Diagnosis - Discharge Diagnosis (1) Seizure Status: Acute Priority: High (2) HLD (hyperlipidemia) Status: Chronic Priority: Medium (3) HTN (hypertension) Status: Chronic Priority: Medium (4) Hypothyroid Status: Chronic Priority: Medium (5) Dementia Status: Chronic Priority: High Hospital Course - Lab Results Lab Results: Micro Results 05/08/17 09:40 Stool Stool Culture - Final NO SALMONELLA, SHIGELLA OR CAMPYLOBACTER ISOLATED. 05/08/17 08:00 Urine,Catheterized Urine Culture - Final No Growth (<1,000 CFU/ML) 05/08/17 09:40 Stool Ova and Parasite Concentrate Exam - Final Most Recent Lab Values WBC 7.9 K/uL (4.8-10.8) 05/09/17 04:25 RBC 4.09 Mil/uL (3.80-5.20) 05/09/17 04:25 Hgb 10.3 g/dL (12.0-16.0) L 05/09/17 04:25 Hct 31.9 % (34.0-47.0) L 05/09/17 04:25 MCV 78.0 fl (81.0-99.0) L 05/09/17 04:25 MCH 25.1 pg (27.0-31.0) L 05/09/17 04:25 MCHC 32.2 g/dL (33.0-37.0) L 05/09/17 04:25 RDW 21.5 % (11.5-14.5) H 05/09/17 04:25 Plt Count 324 K/uL (130-400) 05/09/17 04:25 MPV 8.2 fl (7.2-11.7) 05/08/17 02:57 Neut % (Auto) 62.0 % (50.0-75.0) 05/08/17 02:57 Lymph % (Auto) 22.4 % (20.0-40.0) 05/08/17 02:57 [place] % (Auto) 12.7 % (0.0-10.0) H 05/08/17 02:57 Eos % (Auto) 2.2 % (0.0-4.0) 05/08/17 02:57 Baso % (Auto) 0.7 % (0.0-2.0) 05/08/17 02:57 Neut # (Auto) 7.9 K/uL (1.8-7.0) H 05/08/17 02:57 Lymph # (Auto) 2.8 K/uL (1.0-4.3) 05/08/17 02:57 [place] # (Auto) 1.6 K/uL (0.0-0.8) H 05/08/17 02:57 Eos # (Auto) 0.3 K/uL (0.0-0.7) 05/08/17 02:57 Baso # (Auto) 0.1 K/uL (0.0-0.2) 05/08/17 02:57 Sodium 138 mmol/l (132-148) 05/08/17 02:57 Potassium 3.7 MMOL/L (3.6-5.0) 05/08/17 02:57 Chloride 103 mmol/L (98-107) 05/08/17 02:57 Carbon Dioxide 22 mmol/L (22-30) 05/08/17 02:57 Anion Gap 17 (10-20) 05/08/17 02:57 BUN 9 mg/dl (7-17) 05/08/17 02:57 Creatinine 0.7 mg/dl (0.7-1.2) 05/08/17 02:57 Est GFR ( Amer) > 60 05/08/17 02:57 Est GFR (Non-Af Amer) > 60 05/08/17 02:57 Random Glucose 106 mg/dL (65-105) H 05/08/17 02:57 Lactic Acid 0.9 MMOL/L (0.7-2.1) 05/08/17 02:59 Calcium 8.9 mg/dL (8.4-10.2) 05/08/17 02:57 Total Bilirubin 0.8 mg/dl (0.2-1.3) 05/08/17 02:57 AST 14 U/L (14-36) 05/08/17 02:57 ALT 17 U/L (9-52) 05/08/17 02:57 Alkaline Phosphatase 72 U/L (38-126) 05/08/17 02:57 Total Protein 7.0 G/DL (6.3-8.2) 05/08/17 02:57 Albumin 3.7 g/dL (3.5-5.0) 05/08/17 02:57 Globulin 3.4 gm/dL (2.2-3.9) 05/08/17 02:57 Albumin/Globulin Ratio 1.1 (1.0-2.1) 05/08/17 02:57 TSH 3rd Generation 5.95 mIU/ML (0.46-4.68) H 05/09/17 04:25 Urine Color Yellow (YELLOW) 05/08/17 04:58 Urine Clarity Cloudy (Clear) 05/08/17 04:58 Urine pH 5.0 (5.0-8.0) 05/08/17 04:58 Ur Specific [place] 1.026 (1.003-1.030) 05/08/17 04:58 Urine Protein 30 mg/dL (NEGATIVE) 05/08/17 04:58 Urine Glucose (UA) Neg mg/dL (Normal) 05/08/17 04:58 Urine Ketones Negative mg/dL (NEGATIVE) 05/08/17 04:58 Urine Blood Small (NEGATIVE) 05/08/17 04:58 Urine Nitrate Negative (NEGATIVE) 05/08/17 04:58 Urine Bilirubin Negative (NEGATIVE) 05/08/17 04:58 Urine Urobilinogen 0.2-1.0 mg/dL (0.2-1.0) 05/08/17 04:58 Ur Leukocyte Esterase Neg Kam/uL (Negative) 05/08/17 04:58 Urine RBC (Auto) 5 /hpf (0-3) H 05/08/17 04:58 Urine Microscopic WBC 2 /hpf (0-5) 05/08/17 04:58 Ur Squamous Epith Cells < 1 /hpf (0-5) 05/08/17 04:58 Amorphous Sediment Rare /ul (<OCC) H 05/08/17 04:58 Urine Bacteria Rare (<OCC) 05/08/17 04:58 Hyaline Casts 6-10 /hpf (0-2) H 05/08/17 04:58 C. difficile Ag & Toxin Positive antigen (NEGATIVE) 05/09/17 17:55 Discharge Exam - Head Exam Head Exam: NORMAL INSPECTION Discharge Plan - Discharge Medications Prescriptions: Vancomycin [Vancocin (ORAL OR RECTAL USE)] 250 mg PO QID #40 soln - Follow Up Plan Condition: FAIR Disposition: DETENTION FAC W/PLAN READMIS Instructions: Seizures, Adult (DC) Additional Instructions: pt. [facility] by cont. Bactrim for 5 more days cont. bacid Referrals: Richard Cobb MD [Primary Care Provider] -
--- NOTE | 2017-05-11 08:39 | CON ---
DATE: 05/10/2017 REFERRING DOCTOR: Richard Cobb MD REASON FOR CONSULTATION: Diarrhea, C. diff. HISTORY OF PRESENT ILLNESS: This is a pleasant independent 72-year-old intermediate resident who comes in for essentially postictal with diarrhea for the past couple days. She was in hospital recently, cannot give history She is currently lying in bed, no overt complaint. PAST MEDICAL HISTORY: As above. PAST SURGICAL HISTORY: As above. MEDICATIONS: Has been reviewed. REVIEW OF SYSTEMS: All other systems have been reviewed and negative apart from the HPI. PHYSICAL EXAMINATION: VITAL SIGNS: In the hospital, grossly unremarkable. GENERAL: A pleasant elderly-appearing female, lying in bed comfortably, in no apparent distress. HEENT: Head, normocephalic and atraumatic. Eyes, pupils are equal, round, and reactive to light bilaterally. LUNGS: Coarse breath sounds bilaterally. HEART: S1 and S2, regular rate and rhythm. No murmurs appreciated. ABDOMEN: Soft and nontender. Bowel sounds present. discomfort. No rebound. No guarding. RECTAL: Deferred. EXTREMITIES: Pulses felt bilaterally. SKIN: Warm, dry and intact. NEUROLOGIC: A and O x2. LABORATORY DATA: Reviewed. WBC is noted C. diff is positive for the antigen and toxin positive as well. ASSESSMENT AND PLAN: This is a 72-year-old female with Clostridium difficile. Plan for p.o. vancomycin. Can go back to intermediate once able. Thank you for the consult. Royal Ward MD/ PhD MTDD
--- NOTE | 2017-05-11 14:07 | PCM.EEG ---
Electroencephalogram Report - Electroencephalogram Report Procedure Date: 05/08/17 Interpretation: Indication: Suspected seizure. Medications were reviewed in the chart. Technical: This is a digitally recorded electroencephalogram. The international 10-20 electrode placement system is used for scalp electrode placement. Eighteen channels of scalp EEG are recorded Another channel was used for for ECG. The data are stored digitally and reviewed in reformatted montages for optimal display. Background: 9 to 10 hertz alpha activity was seen. Maximal over the posterior head region. These activities are symmetric on both sides. They attenuated with eye opening. Small amount of beta activities are seen. Description: No focal slowing was seen. No seizure like activity was observed during this recording. Patient entered into periods of drowsiness and light sleep. Impression: Normal EEG. No focal slowing no seizure like activity was observed. Correlation with clinical findings is needed.
--- NOTE | 2017-05-11 18:27 | CARD ---
APPROVED REPORT EKG Measurement Heart [id number] <Conclusion> Normal sinus rhythm Normal ECG
[2017-05-12 07:24] LABS: LEVETIRACETAM 15.9 mcg/mL
== END 2017-05-10 16:07 | DRG 101 ==
LOC: H.ER 00:22 → H.ERHOLD 06:33 → H.TEL 08:30 → OBSVTOIN 05-09 07:00
PROVIDERS: ADMIT Internal Medicine Pulmonary Disease; ATTEND Internal Medicine Pulmonary Disease
DX: G40.909 Epilepsy, unspecified, not intractable, without status epilepticus (principal); G30.9 Alzheimer's disease, unspecified; F02.80 Dementia in other diseases classified elsewhere, unspecified severity, without behavioral disturbance, psychotic disturbance, mood disturbance, and anxiety; D72.829 Elevated white blood cell count, unspecified; E03.9 Hypothyroidism, unspecified; E78.5 Hyperlipidemia, unspecified; E78.00 Pure hypercholesterolemia, unspecified; I10 Essential (primary) hypertension; R41.0 Disorientation, unspecified

== ENCOUNTER 2018-01-28 16:08 | Inpatient (IN) | payer MEDICARE, MEDICAID ==
[2018-01-28 16:09] VITALS: BMI 22.3
--- NOTE | 2018-01-28 16:58 | ED PDOC ---
HPI: General Adult Time Seen by Provider: 01/28/18 16:39 Chief Complaint (Nursing): Abnormal Labs Chief Complaint (Provider): Abnormal Labs History Per: Family (daughter) History/Exam Limitations: no limitations Current Symptoms Are (Timing): Still Present Additional Complaint(s): 73 year old female with a history of Alzheimers, dementia, hypothyroid, and seizures presents to this ED from [facility] with abnormal labs. Patient is a poor historian due to clinical condition, history obtained from daughter. As per daughter, patient has elevated white blood cell count and possibly a low hemoglobin, which was 9.3 yesterday. Patient has no complaints of pain, fever, or any other medical complaints. Earlier this month, patient had a little blood urine. Her appetite is also good. PMD: [place] Past Medical History Reviewed: Historical Data, Nursing Documentation, Vital Signs Vital Signs: Last Vital Signs Temp 97.7 F 01/28/18 16:10 Pulse 91 H 01/28/18 16:10 Resp 20 01/28/18 16:10 BP 110/76 01/28/18 16:10 Pulse Ox 100 01/28/18 16:10 - Medical History PMH: Alzheimer's Disease, Dementia, HTN, Hypercholesterolemia, Hypothyroidism, Seizures Denies: HIV, Chronic Kidney Disease - Surgical History Surgical History: No Surg Hx - Family History Family History: States: Unknown Family Hx - Home Medications Home Medications: Ambulatory Orders Medication Instructions Recorded RX: Atorvastatin [Lipitor] 10 mg PO HS 03/17/17 RX: Enalapril Maleate [Vasotec] 5 mg PO DAILY 03/17/17 RX: Memantine HCl/Donepezil HCl 1 cap PO HS 03/17/17 [Namzaric 28 mg-10 mg Capsule] Acetaminophen [Tylenol 325mg tab] 650 mg PO Q4 PRN 01/28/18 Acetaminophen [Tylenol 325mg tab] 650 mg PO Q4 PRN 01/28/18 Ascorbic Acid [Vitamin C Liq] 5 ml PO DAILY 01/28/18 Epoetin Eric [Procrit] 10,000 unit SC MWF 01/28/18 Ergocalciferol (Vitamin D2) 50,000 unit PO TH 01/28/18 [Vitamin D2] Levothyroxine [Synthroid] 112 mcg PO DAILY 01/28/18 Magnesium Hydroxide [Milk Of 30 ml PO HS PRN 01/28/18 Magnesia] Megestrol Acetate [Megace] 10 ml PO BID 01/28/18 Omeprazole 20 mg PO BID 01/28/18 RX: Bisacodyl [Dulcolax] 10 mg DC DAILY PRN 01/28/18 RX: Ferrous Sulfate [Ferosul] 325 mg PO BID 01/28/18 RX: Loperamide [Imodium] 2 mg PO Q4 PRN MDD 16 mg 01/28/18 levETIRAcetam Solution [Keppra] 500 mg PO Q12 01/28/18 - Allergies Allergies/Adverse Reactions: Allergies Allergy/AdvReac Type Severity Reaction Status Date / Time egg AdvReac DIARRHEA Verified 01/29/18 02:29 milk AdvReac DIARRHEA Verified 01/29/18 02:29 Review of Systems Review Of Systems: ROS cannot be obtained secondary to pt's inabilty to answer questions. Constitutional: Negative for: Fever Genitourinary Female: Positive for: Hematuria (earlier this month ) Physical Exam - Reviewed Nursing Documentation Reviewed: Yes Vital Signs Reviewed: Yes - Physical Exam Appears: Positive for: No Acute Distress Head Exam: Positive for: ATRAUMATIC, NORMOCEPHALIC Skin: Positive for: Normal Color, Warm, Dry Eye Exam: Positive for: Normal appearance, EOMI, PERRL ENT: Positive for: Normal ENT Inspection Neck: Positive for: Normal, Painless ROM, Supple Cardiovascular/Chest: Positive for: Regular Rate, Rhythm. Negative for: Murmur Respiratory: Positive for: Normal Breath Sounds. Negative for: Respiratory Distress Gastrointestinal/Abdominal: Positive for: Normal Exam, Soft. Negative for: Tenderness Extremity: Positive for: Normal ROM (upper and lower). Negative for: Pedal Edema, Deformity Neurologic/Psych: Positive for: Alert, Oriented - Laboratory Results Result Diagrams: 01/29/18 05:40 01/29/18 05:40 - ECG O2 Sat by Pulse Oximetry: 100 (RA) Pulse Ox Interpretation: Normal Medical Decision Making Medical Decision Making: Time: 1647 Initial Impression: Leukocytosis Differential diagnoses include but are not limited to: infectious causes or noninfectious causes including UTI or pneumonia. Initial Plan: --VBG --CMP --Urine dip --CBC with differentials --CXR --Blood culture --Urine culture --UA CXR: FINDINGS: LUNGS: No active pulmonary disease. PLEURA: No significant pleural effusion identified, no pneumothorax apparent. CARDIOVASCULAR: No atherosclerotic calcification present Normal. OSSEOUS STRUCTURES: No significant abnormalities. VISUALIZED UPPER ABDOMEN: Normal. OTHER FINDINGS: None. IMPRESSION: No active disease. No significant interval change compared to the prior examination(s). Scribe Attestation: Documented by Christine Patricia, acting as a scribe for Song Fallon MD Provider Scribe Attestation: All medical record entries made by the Scribe were at my direction and personally dictated by me. I have reviewed the chart and agree that the record accurately reflects my personal performance of the history, physical exam, medical decision making, and the department course for this patient. I have also personally directed, reviewed, and agree with the discharge instructions and disposition. Disposition - Clinical Impression Clinical Impression: UTI (urinary tract infection), Sepsis - Patient ED Disposition Is Patient to be Admitted: Yes Discussed With : Richard Cobb Doctor Will See Patient In The: Hospital Counseled Patient/Family Regarding: Studies Performed, Diagnosis - Disposition Disposition Time: 18:00 Condition: FAIR - Pt Status Changed To: Hospital Disposition Of: Inpatient - Admit Certification Admit to Inpatient:: After my assessment, the patient will require hospitalization for at least two midnights. This is because of the severity of symptoms shown, intensity of services needed, and/or the medical risk in this patient being treated as an outpatient. - POA Present On Arrival: None
[2018-01-28 17:00] LABS: BASO # 0.1 K/uL (0.0-0.2); BASO % 0.7 % (0.0-2.0); EOS # 0.6 K/uL (0.0-0.7); EOS % 3.9 % (0.0-4.0); HEMOGLOBIN 9.2 g/dL (12.0-16.0); LYMPH # 3.7 K/uL (1.0-4.3); MEAN CORPUSCULAR HEMOGLOBIN 19.9 pg (27.0-31.0); MEAN CORPUSCULAR HGB CONC 29.7 g/dL (33.0-37.0); MEAN PLATELET VOLUME 7.8 fl (7.2-11.7); MONO # 1.5 K/uL (0.0-0.8); MONO % 9.5 % (0.0-10.0); NEUT # 9.5 K/uL (1.8-7.0); NEUT % 61.9 % (50.0-75.0); RBC 4.63 Mil/uL (3.80-5.20); RED CELL DISTRIBUTION WIDTH 19.3 % (11.5-14.5); WHITE BLOOD COUNT 15.4 K/uL (4.8-10.8)
[2018-01-28 17:10] LABS: VENOUS BLOOD GAS BASE EXCESS 0.4 mmol/L (0.0-2.0); VENOUS BLOOD GAS PCO2 30 mmHg (40-60); VENOUS BLOOD GAS PO2 28 mm/Hg (30-55); VENOUS BLOOD PH 7.49 (7.32-7.43)
[2018-01-28 17:16] LABS: ALBUMIN 3.8 g/dL (3.5-5.0); ALT/SGPT 15 U/L (9-52); AST/SGOT 24 U/L (14-36); BLOOD UREA NITROGEN 12 mg/dl (7-17); GFR NON-AFRICAN AMERICAN > 60
[2018-01-28] MEDS ORDERED: Povidone Iodine Oint 10% Foilpak UD ONE (17:22)
--- NOTE | 2018-01-28 17:36 | RAD ---
Date of service: 01/28/2018 HISTORY: Elevated white count and cough COMPARISON: 05/08/2017 FINDINGS: LUNGS: No active pulmonary disease. PLEURA: No significant pleural effusion identified, no pneumothorax apparent. CARDIOVASCULAR: No atherosclerotic calcification present Normal. OSSEOUS STRUCTURES: No significant abnormalities. VISUALIZED UPPER ABDOMEN: Normal. OTHER FINDINGS: None. IMPRESSION: No active disease. No significant interval change compared to the prior examination(s).
[2018-01-28 17:52] LABS: SQUAMOUS EPITHIAL < 1 /hpf (0-5); URINE BACTERIA OCC (<OCC); URINE BILIRUBIN NEGATIVE (NEGATIVE); URINE BLOOD SMALL (NEGATIVE); URINE CLARITY CLOUDY (Clear); URINE COLOR YELLOW (YELLOW); URINE GLUCOSE (UA) NEG (Normal); URINE LEUKOCYTE ESTERASE MOD Leu/uL (Negative); URINE PROTEIN 30 mg/dL (NEGATIVE); URINE UROBILINOGEN 0.2-1.0 mg/dL (0.2-1.0)
[2018-01-28] MEDS ORDERED: Magnesium Hydroxide Susp 30 ml UD PO PRN (21:26)
[2018-01-28] MEDS: Cefepime 1 GM in Sodium Chloride 0.9% 100 ML IVPB SCH (22:39)
[2018-01-28] MEDS: levETIRAcetam 100 mg/ml (5ml) Oral Syringe PO SCH (22:47)
[2018-01-29 06:17] LABS: HEMOGLOBIN 8.7 g/dL (12.0-16.0); MEAN CELL VOLUME 66.3 fl (81.0-99.0); MEAN CORPUSCULAR HEMOGLOBIN 19.8 pg (27.0-31.0); MEAN CORPUSCULAR HGB CONC 29.9 g/dL (33.0-37.0); RBC 4.4 Mil/uL (3.80-5.20); RED CELL DISTRIBUTION WIDTH 18.5 % (11.5-14.5); WHITE BLOOD COUNT 13.9 K/uL (4.8-10.8)
[2018-01-29 06:42] LABS: IRON 14 ug/dL (37-170)
[2018-01-29 06:47] LABS: T4 9.07 ug/dl (5.5-11.0)
[2018-01-29 06:51] LABS: ALBUMIN 3.5 g/dL (3.5-5.0); ALT/SGPT 12 U/L (9-52); AST/SGOT 20 U/L (14-36); BLOOD UREA NITROGEN 9 mg/dl (7-17); CALCIUM 9.2 mg/dL (8.4-10.2); GFR NON-AFRICAN AMERICAN > 60
[2018-01-29 06:54] LABS: % IRON SATURATION 5 % (20-55); TOTAL IRON BINDING CAPACITY 294 ug/dL (250-450)
[2018-01-29 07:05] LABS: FERRITIN 11.2 ng/Ml (11.1-264.0)
[2018-01-29] MEDS: Levothyroxine 112 MCG TAB PO SCH (07:21)
[2018-01-29] MEDS ORDERED: Ascorbic Acid 500 mg/5 ml Liq(50 ml) PO SCH (09:00)
[2018-01-29] MEDS: Cefepime 1 GM in Sodium Chloride 0.9% 100 ML IVPB SCH ×2 (09:47→21:31)
[2018-01-29] MEDS: levETIRAcetam 100 mg/ml (5ml) Oral Syringe PO SCH ×2 (09:47→21:32)
[2018-01-29] MEDS: Pantoprazole 40 mg EC Tab PO SCH (09:48)
[2018-01-29] MEDS: Megestrol Acetate 40 mg/ml Cup PO SCH ×2 (09:48→16:57)
--- NOTE | 2018-01-29 13:04 | CP.PCM.HP ---
History of Present Illness - History of Present Illness History of Present Illness: 73 y/o F, Multiple chronic medical conditions including Advanced Dementia/Alzheimer, HTN, Seizure, Wheelchair bound, resident at [facility], sent to ER [facility] on 01/28/18 via EMS for evaluation of abnormal lab results ( WBC 18.2), drawn day HYDRATOR at OR, associated to mild blood in urine in AM while in that facility. No changes in medical condition. Hx of leukocytosis in previous serial CBC's Worsening symptoms: Weakness, on evaluation in the ER, found with WBC's 15.4, Hgb 9.2, U/A: RBC5 5. WBC 14, Bacteria occ high. Aggravated factor: Poor historian. No c/o of Pain, n/v/d, abdominal pain, CP, syncope, SOB, cough, sick contact. CXR: No active disease. Present on Admission - Present on Admission Any Indicators Present on Admission: No Review of Systems - Review of Systems Systems not reviewed;Unavailable: Acuity of Condition, Dementia Past Patient History - Past Medical History & Family History Past Medical History?: Yes Pertinent Family History: Unknown - Past Social History Smoking Status: Former Smoker Alcohol: None Drugs: Denies Home Situation {Lives}: Alf - CARDIAC Hx Cardiac Disorders: Yes Hx Hypercholesterolemia: Yes Hx Hypertension: Yes - PULMONARY Hx Respiratory Disorders: No - NEUROLOGICAL Hx Neurological Disorder: Yes Hx Alzheimer's Disease: Yes Hx Dementia: Yes Hx Seizures: Yes (last seizure May 2017) - HEENT Hx HEENT Problems: No - RENAL Hx Chronic Kidney Disease: No - ENDOCRINE/METABOLIC Hx Endocrine Disorders: Yes Hx Hypothyroidism: Yes - HEMATOLOGICAL/ONCOLOGICAL Hx Blood Disorders: No Hx AIDS: No Hx Human Immunodeficiency Virus (HIV): No - INTEGUMENTARY Hx Dermatological Problems: No - MUSCULOSKELETAL/RHEUMATOLOGICAL Hx Musculoskeletal Disorders: Yes Hx Falls: Yes - GASTROINTESTINAL Hx Gastrointestinal Disorders: No - GENITOURINARY/GYNECOLOGICAL Hx Genitourinary Disorders: Yes Hx Urinary Tract Infection: Yes - PSYCHIATRIC Hx Psychophysiologic Disorder: No Hx Substance Use: No - SURGICAL HISTORY Hx Surgeries: No - ANESTHESIA Hx Anesthesia: No Hx Anesthesia Reactions: No Hx Malignant Hyperthermia: No Meds Allergies/Adverse Reactions: Allergies Allergy/AdvReac Type Severity Reaction Status Date / Time egg AdvReac DIARRHEA Verified 01/29/18 02:29 milk AdvReac DIARRHEA Verified 01/29/18 02:29 Physical Exam - Constitutional Appears: No Acute Distress - Head Exam Head Exam: NORMAL INSPECTION - Eye Exam Eye Exam: PERRL - ENT Exam ENT Exam: Normal Exam - Neck Exam Neck exam: Positive for: Normal Inspection - Respiratory Exam Respiratory Exam: NORMAL BREATHING PATTERN - Cardiovascular Exam Cardiovascular Exam: REGULAR RHYTHM - GI/Abdominal Exam GI & Abdominal Exam: Soft - Extremities Exam Extremities exam: Positive for: normal inspection - Neurological Exam Neurological exam: Reflexes Normal Additional comments: Awake, confused, disoriented. - Skin Skin Exam: Warm Results - Vital Signs Recent Vital Signs: Last Vital Signs Temp 98.2 F 01/29/18 07:56 Pulse 100 H 01/29/18 07:56 Resp 19 01/29/18 07:56 BP 128/78 01/29/18 07:56 Pulse Ox 99 01/29/18 07:56 reviewed Moise - Labs Result Diagrams: 01/30/18 05:50 01/30/18 05:50 Labs: Laboratory Results - last 24 hr 01/28/18 01/28/18 01/28/18 16:57 16:57 17:00 WBC 15.4 H D RBC 4.63 Hgb 9.2 L Hct 31.0 L MCV 67.0 L D MCH 19.9 L MCHC 29.7 L RDW 19.3 H Plt Count 581 H D MPV 7.8 Neut % (Auto) 61.9 Lymph % (Auto) 24.0 Price % (Auto) 9.5 Eos % (Auto) 3.9 Baso % (Auto) 0.7 Neut # (Auto) 9.5 H Lymph # (Auto) 3.7 Price # (Auto) 1.5 H Eos # (Auto) 0.6 Baso # (Auto) 0.1 Retic Count pO2 28 L VBG pH 7.49 H VBG pCO2 30 L VBG HCO3 24.2 VBG Total CO2 23.8 VBG O2 Sat (Calc) 58.2 VBG Base Excess 0.4 Glucose 74 Lactate 2.1 FiO2 21.0 Crit Value Called To Courtney lujan Crit Value Called By 23 Crit Value Read Back Y Blood Gas Notified Time 1705 Sodium 140 186.0 H* Potassium 4.5 Chloride 109 H 122.0 H Carbon Dioxide 21 L Anion Gap 15 BUN 12 Creatinine 0.6 L Est GFR ( Amer) > 60 Est GFR (Non-Af Amer) > 60 Random Glucose 80 Calcium 9.0 Phosphorus Magnesium Iron TIBC % Saturation Ferritin Total Bilirubin 0.4 AST 24 ALT 15 Alkaline Phosphatase 70 Total Protein 7.5 Albumin 3.8 Globulin 3.7 Albumin/Globulin Ratio 1.0 Thyroxine (T4) TSH 3rd Generation Urine Color Urine Clarity Urine pH Ur Specific [place] Urine Protein Urine Glucose (UA) Urine Ketones Urine Blood Urine Nitrate Urine Bilirubin Urine Urobilinogen Ur Leukocyte Esterase Urine RBC (Auto) Urine Microscopic WBC Ur Squamous Epith Cells Urine Bacteria 01/28/18 01/29/18 01/29/18 17:39 05:40 05:40 WBC 13.9 H RBC 4.40 Hgb 8.7 L Hct 29.2 L MCV 66.3 L MCH 19.8 L MCHC 29.9 L RDW 18.5 H Plt Count 516 H MPV Neut % (Auto) Lymph % (Auto) Price % (Auto) Eos % (Auto) Baso % (Auto) Neut # (Auto) Lymph # (Auto) Price # (Auto) Eos # (Auto) Baso # (Auto) Retic Count 1.8 H pO2 VBG pH VBG pCO2 VBG HCO3 VBG Total CO2 VBG O2 Sat (Calc) VBG Base Excess Glucose Lactate FiO2 Crit Value Called To Crit Value Called By Crit Value Read Back Blood Gas Notified Time Sodium 139 Potassium 4.3 Chloride 110 H Carbon Dioxide 22 Anion Gap 11 BUN 9 Creatinine 0.7 Est GFR ( Amer) > 60 Est GFR (Non-Af Amer) > 60 Random Glucose 86 Calcium 9.2 Phosphorus 4.5 Magnesium 2.1 Iron TIBC % Saturation Ferritin 11.2 Total Bilirubin 0.5 AST 20 ALT 12 Alkaline Phosphatase 69 Total Protein 6.9 Albumin 3.5 Globulin 3.5 Albumin/Globulin Ratio 1.0 Thyroxine (T4) 9.07 TSH 3rd Generation 3.39 Urine Color Yellow Urine Clarity Cloudy Urine pH 8.0 Ur Specific [place] 1.016 Urine Protein 30 Urine Glucose (UA) Neg Urine Ketones Negative Urine Blood Small Urine Nitrate Negative Urine Bilirubin Negative Urine Urobilinogen 0.2-1.0 Ur Leukocyte Esterase Mod Urine RBC (Auto) 5 H Urine Microscopic WBC 14 H Ur Squamous Epith Cells < 1 Urine Bacteria Occ H 01/29/18 05:40 WBC RBC Hgb Hct MCV MCH MCHC RDW Plt Count MPV Neut % (Auto) Lymph % (Auto) Price % (Auto) Eos % (Auto) Baso % (Auto) Neut # (Auto) Lymph # (Auto) Price # (Auto) Eos # (Auto) Baso # (Auto) Retic Count pO2 VBG pH VBG pCO2 VBG HCO3 VBG Total CO2 VBG O2 Sat (Calc) VBG Base Excess Glucose Lactate FiO2 Crit Value Called To Crit Value Called By Crit Value Read Back Blood Gas Notified Time Sodium Potassium Chloride Carbon Dioxide Anion Gap BUN Creatinine Est GFR ( Amer) Est GFR (Non-Af Amer) Random Glucose Calcium Phosphorus Magnesium Iron 14 L TIBC 294 % Saturation 5 L Ferritin Total Bilirubin AST ALT Alkaline Phosphatase Total Protein Albumin Globulin Albumin/Globulin Ratio Thyroxine (T4) TSH 3rd Generation Urine Color Urine Clarity Urine pH Ur Specific [place] Urine Protein Urine Glucose (UA) Urine Ketones Urine Blood Urine Nitrate Urine Bilirubin Urine Urobilinogen Ur Leukocyte Esterase Urine RBC (Auto) Urine Microscopic WBC Ur Squamous Epith Cells Urine Bacteria reviewed J.P. - Imaging and Cardiology Chest x-ray Status: Report reviewed by me (J.P.) Assessment & Plan (1) UTI (urinary tract infection) Status: Acute Priority: High (2) Hematuria Status: Acute Priority: High (3) Anemia Status: Acute Priority: High (4) HLD (hyperlipidemia) Status: Chronic Priority: Medium (5) Hypothyroid Status: Chronic Priority: Medium (6) HTN (hypertension) Status: Chronic Priority: Medium (7) Hx of seizure disorder Status: Chronic Priority: Medium (8) Dementia Status: Chronic Priority: High - Assessment and Plan (Free Text) Plan: F/U Blood C-S. U C-S, Cefepime, Lovenox, Vasotec, Keppra, Lipitor, Synthroid, Procrit and rest of Tx. Pt, OT eval, Hematology consult. - Date & Time Date: 01/29/18
[2018-01-29 13:32] LABS: FOLATE 12.9 ng/mL
--- NOTE | 2018-01-29 15:11 | CP.PCM.CON ---
History of Present Illness - History of Present Illness History of Present Illness: 73 year old female with a history of Alzheimers dementia, hypothyroid, presenting from the [facility] with leukocytosis, anemia, and UTI. I am unable to obtain a history from the patient. Review of her blood work shows leukocytosis with neutrophilia and anemia. Past medical, surgical, family, social history cannot be obtained from the marlene jeong. Allergies: NKDA per documentation Review of systems cannot be obtained. Past Patient History - Past Medical History & Family History Past Medical History?: Yes - Past Social History Smoking Status: Former Smoker - CARDIAC Hx Cardiac Disorders: Yes Hx Hypercholesterolemia: Yes Hx Hypertension: Yes - PULMONARY Hx Respiratory Disorders: No - NEUROLOGICAL Hx Neurological Disorder: Yes Hx Alzheimer's Disease: Yes Hx Dementia: Yes Hx Seizures: Yes (last seizure May 2017) - HEENT Hx HEENT Problems: No - RENAL Hx Chronic Kidney Disease: No - ENDOCRINE/METABOLIC Hx Endocrine Disorders: Yes Hx Hypothyroidism: Yes - HEMATOLOGICAL/ONCOLOGICAL Hx Blood Disorders: No Hx AIDS: No Hx Human Immunodeficiency Virus (HIV): No - INTEGUMENTARY Hx Dermatological Problems: No - MUSCULOSKELETAL/RHEUMATOLOGICAL Hx Musculoskeletal Disorders: Yes Hx Falls: Yes - GASTROINTESTINAL Hx Gastrointestinal Disorders: No - GENITOURINARY/GYNECOLOGICAL Hx Genitourinary Disorders: Yes Hx Urinary Tract Infection: Yes - PSYCHIATRIC Hx Psychophysiologic Disorder: No Hx Substance Use: No - SURGICAL HISTORY Hx Surgeries: No - ANESTHESIA Hx Anesthesia: No Hx Anesthesia Reactions: No Hx Malignant Hyperthermia: No Meds Home Medications: Home Medication List Medication Instructions Recorded Confirmed Type Iron Sucrose Complex [Venofer] 200 mg IV DAILY #2 vial 02/01/18 Rx MEROPENEM 500 MG in NS [Merrem IV 500 mg IV Q8 7 Days bag 02/01/18 Rx 500 MG/NS 50 ML] Allergies/Adverse Reactions: Allergies Allergy/AdvReac Type Severity Reaction Status Date / Time egg AdvReac DIARRHEA Verified 01/29/18 02:29 milk AdvReac DIARRHEA Verified 01/29/18 02:29 - Medications Medications: Current Medications Acetaminophen (Tylenol 325mg Tab) 650 mg PO Q4 PRN PRN Reason: Pain, Mild (1-3) Ascorbic Acid (Vitamin C 500 Mg Tab) 500 mg PO DAILY LUIS ENRIQUE Atorvastatin Calcium (Lipitor) 10 mg PO HS LUIS ENRIQUE Last Admin: 01/28/18 22:49 Dose: 10 mg Bisacodyl (Dulcolax) 10 mg DE DAILY PRN PRN Reason: No bowel movement x3 days Donepezil HCl (Aricept) 10 mg PO HS [facility] Last Admin: 01/28/18 22:44 Dose: 10 mg Enalapril Maleate (Vasotec) 5 mg PO DAILY [facility] Last Admin: 01/29/18 09:49 Dose: 5 mg Enoxaparin Sodium (Lovenox) 40 mg SC DAILY [facility]; Protocol Epoetin Eric (Procrit) 10,000 unit SC MWF [facility] Ergocalciferol (Drisdol 50,000 Intl Units Cap) 1 cap PO TH [facility] Ferrous Sulfate (Feosol) 325 mg PO BID [facility] Last Admin: 01/29/18 09:48 Dose: 325 mg Cefepime HCl 1 gm/ Sodium (Chloride) 100 mls @ 100 mls/hr IVPB Q12 [facility]; Protocol Last Admin: 01/29/18 09:47 Dose: 100 mls/hr Iron Sucrose 200 mg/ Sodium (Chloride) 110 mls @ 110 mls/hr IVPB DAILY [facility] Stop: 02/03/18 15:16 Levetiracetam (Keppra) 500 mg PO Q12 [facility] Last Admin: 01/29/18 09:47 Dose: 500 mg Levothyroxine Sodium (Synthroid) 112 mcg PO DAILY@0630 [facility] Last Admin: 01/29/18 07:21 Dose: 112 mcg Magnesium Hydroxide (Milk Of Magnesia) 30 ml PO HS PRN PRN Reason: No bowel movement x 2 days Megestrol Acetate (Megace) 400 mg PO BID [facility] Last Admin: 01/29/18 09:48 Dose: 400 mg Memantine (Namenda) 20 mg PO [facility] Last Admin: 01/28/18 22:45 Dose: 20 mg Pantoprazole Sodium (Protonix Ec Tab) 40 mg PO DAILY [facility] Last Admin: 01/29/18 09:48 Dose: 40 mg Saccharomyces Boulardii (Florastor) 250 mg PO BID [facility] Physical Exam - Head Exam Head Exam: ATRAUMATIC - Eye Exam Eye Exam: Normal appearance - ENT Exam ENT Exam: Mucous Membranes Dry - Respiratory Exam Respiratory Exam: NORMAL BREATHING PATTERN - Cardiovascular Exam Cardiovascular Exam: +S1, +S2 - GI/Abdominal Exam GI & Abdominal Exam: Normal Bowel Sounds - Neurological Exam Neurological exam: Altered - Psychiatric Exam Psychiatric exam: Flat Affect - Skin Skin Exam: Warm Results - Vital Signs Recent Vital Signs: Last Vital Signs Temp 98.2 F 01/29/18 07:56 Pulse 100 H 01/29/18 07:56 Resp 19 01/29/18 07:56 BP 128/78 01/29/18 07:56 Pulse Ox 99 01/29/18 07:56 - Labs Result Diagrams: 02/01/18 13:40 02/01/18 13:40 Labs: Laboratory Results - last 24 hr 01/28/18 01/28/18 01/28/18 16:57 16:57 17:00 WBC 15.4 H D RBC 4.63 Hgb 9.2 L Hct 31.0 L MCV 67.0 L D MCH 19.9 L MCHC 29.7 L RDW 19.3 H Plt Count 581 H D MPV 7.8 Neut % (Auto) 61.9 Lymph % (Auto) 24.0 Major % (Auto) 9.5 Eos % (Auto) 3.9 Baso % (Auto) 0.7 Neut # (Auto) 9.5 H Lymph # (Auto) 3.7 Major # (Auto) 1.5 H Eos # (Auto) 0.6 Baso # (Auto) 0.1 Retic Count pO2 28 L VBG pH 7.49 H VBG pCO2 30 L VBG HCO3 24.2 VBG Total CO2 23.8 VBG O2 Sat (Calc) 58.2 VBG Base Excess 0.4 Glucose 74 Lactate 2.1 FiO2 21.0 Crit Value Called To Courtney lujan Crit Value Called By 23 Crit Value Read Back Y Blood Gas Notified Time 1705 Sodium 140 186.0 H* Potassium 4.5 Chloride 109 H 122.0 H Carbon Dioxide 21 L Anion Gap 15 BUN 12 Creatinine 0.6 L Est GFR ( Amer) > 60 Est GFR (Non-Af Amer) > 60 Random Glucose 80 Calcium 9.0 Phosphorus Magnesium Iron TIBC % Saturation Ferritin Total Bilirubin 0.4 AST 24 ALT 15 Alkaline Phosphatase 70 Total Protein 7.5 Albumin 3.8 Globulin 3.7 Albumin/Globulin Ratio 1.0 Folate Thyroxine (T4) TSH 3rd Generation Urine Color Urine Clarity Urine pH Ur Specific [place] Urine Protein Urine Glucose (UA) Urine Ketones Urine Blood Urine Nitrate Urine Bilirubin Urine Urobilinogen Ur Leukocyte Esterase Urine RBC (Auto) Urine Microscopic WBC Ur Squamous Epith Cells Urine Bacteria 01/28/18 01/29/18 01/29/18 17:39 05:40 05:40 WBC 13.9 H RBC 4.40 Hgb 8.7 L Hct 29.2 L MCV 66.3 L MCH 19.8 L MCHC 29.9 L RDW 18.5 H Plt Count 516 H MPV Neut % (Auto) Lymph % (Auto) Major % (Auto) Eos % (Auto) Baso % (Auto) Neut # (Auto) Lymph # (Auto) Major # (Auto) Eos # (Auto) Baso # (Auto) Retic Count 1.8 H pO2 VBG pH VBG pCO2 VBG HCO3 VBG Total CO2 VBG O2 Sat (Calc) VBG Base Excess Glucose Lactate FiO2 Crit Value Called To Crit Value Called By Crit Value Read Back Blood Gas Notified Time Sodium 139 Potassium 4.3 Chloride 110 H Carbon Dioxide 22 Anion Gap 11 BUN 9 Creatinine 0.7 Est GFR ( Amer) > 60 Est GFR (Non-Af Amer) > 60 Random Glucose 86 Calcium 9.2 Phosphorus 4.5 Magnesium 2.1 Iron TIBC % Saturation Ferritin 11.2 Total Bilirubin 0.5 AST 20 ALT 12 Alkaline Phosphatase 69 Total Protein 6.9 Albumin 3.5 Globulin 3.5 Albumin/Globulin Ratio 1.0 Folate 12.9 Thyroxine (T4) 9.07 TSH 3rd Generation 3.39 Urine Color Yellow Urine Clarity Cloudy Urine pH 8.0 Ur Specific [place] 1.016 Urine Protein 30 Urine Glucose (UA) Neg Urine Ketones Negative Urine Blood Small Urine Nitrate Negative Urine Bilirubin Negative Urine Urobilinogen 0.2-1.0 Ur Leukocyte Esterase Mod Urine RBC (Auto) 5 H Urine Microscopic WBC 14 H Ur Squamous Epith Cells < 1 Urine Bacteria Occ H 01/29/18 05:40 WBC RBC Hgb Hct MCV MCH MCHC RDW Plt Count MPV Neut % (Auto) Lymph % (Auto) Major % (Auto) Eos % (Auto) Baso % (Auto) Neut # (Auto) Lymph # (Auto) Major # (Auto) Eos # (Auto) Baso # (Auto) Retic Count pO2 VBG pH VBG pCO2 VBG HCO3 VBG Total CO2 VBG O2 Sat (Calc) VBG Base Excess Glucose Lactate FiO2 Crit Value Called To Crit Value Called By Crit Value Read Back Blood Gas Notified Time Sodium Potassium Chloride Carbon Dioxide Anion Gap BUN Creatinine Est GFR ( Amer) Est GFR (Non-Af Amer) Random Glucose Calcium Phosphorus Magnesium Iron 14 L TIBC 294 % Saturation 5 L Ferritin Total Bilirubin AST ALT Alkaline Phosphatase Total Protein Albumin Globulin Albumin/Globulin Ratio Folate Thyroxine (T4) TSH 3rd Generation Urine Color Urine Clarity Urine pH Ur Specific [place] Urine Protein Urine Glucose (UA) Urine Ketones Urine Blood Urine Nitrate Urine Bilirubin Urine Urobilinogen Ur Leukocyte Esterase Urine RBC (Auto) Urine Microscopic WBC Ur Squamous Epith Cells Urine Bacteria Assessment & Plan (1) Leukocytosis Assessment and Plan: on antibiotics if no improvement, will check flow cytometery Status: Acute (2) Anemia Assessment and Plan: iron deficiency anemia will start on IV iron Thank you for this interesting consult. Status: Acute Priority: High
[2018-01-29] MEDS: Enoxaparin 40 mg Syringe SC SCH (16:57)
--- NOTE | 2018-01-29 18:39 | CARD ---
APPROVED REPORT Date of service: 01/29/2018 EKG Measurement Heart [id number] <Conclusion> Sinus tachycardia Otherwise normal ECG
[2018-01-29] MEDS: Saccharomyces Boulardi 250 mg Cap PO SCH (22:31)
[2018-01-30] MEDS: Levothyroxine 112 MCG TAB PO SCH (06:12)
[2018-01-30 06:24] LABS: HEMOGLOBIN 9.1 g/dL (12.0-16.0); MEAN CELL VOLUME 66.9 fl (81.0-99.0); MEAN CORPUSCULAR HEMOGLOBIN 20.2 pg (27.0-31.0); MEAN CORPUSCULAR HGB CONC 30.1 g/dL (33.0-37.0); RBC 4.52 Mil/uL (3.80-5.20); RED CELL DISTRIBUTION WIDTH 18.8 % (11.5-14.5); WHITE BLOOD COUNT 13.9 K/uL (4.8-10.8)
[2018-01-30 06:32] LABS: BLOOD UREA NITROGEN 10 mg/dl (7-17); CALCIUM 9.3 mg/dL (8.4-10.2); GFR NON-AFRICAN AMERICAN > 60
[2018-01-30] MEDS: Cefepime 1 GM in Sodium Chloride 0.9% 100 ML IVPB SCH (08:19)
[2018-01-30] MEDS: Enoxaparin 40 mg Syringe SC SCH (08:20)
[2018-01-30] MEDS: Megestrol Acetate 40 mg/ml Cup PO SCH ×2 (08:20→16:31)
[2018-01-30] MEDS: Pantoprazole 40 mg EC Tab PO SCH (08:24)
[2018-01-30] MEDS: EPOETIN ALFA 10,000 UNIT/ML ML SC SCH (08:25)
[2018-01-30] MEDS: levETIRAcetam 100 mg/ml (5ml) Oral Syringe PO SCH ×2 (08:29→21:22)
[2018-01-30] MEDS: Saccharomyces Boulardi 250 mg Cap PO SCH ×2 (08:29→16:31)
--- NOTE | 2018-01-30 13:15 | CP.PCM.CON ---
History of Present Illness - History of Present Illness History of Present Illness: 73 year old female with a history of Alzheimers, dementia, hypothyroid, and seizures presents to this ED from [facility] with abnormal labs. Hx of previous UTI now admitted with ESBL + UTI ID reqyuested for this - Medical History PMH: Alzheimer's Disease, Dementia, HTN, Hypercholesterolemia, Hypothyroidism, Seizures Denies: HIV, Chronic Kidney Disease Review of Systems - Review of Systems Systems not reviewed;Unavailable: Altered Mental Status All systems: reviewed and no additional remarkable complaints except - Constitutional Constitutional: As Per HPI - EENT Eyes: absent: As Per HPI, Blind Spots, Blurred Vision, Change in Vision, Decreased Night Vision, Diplopia, Discharge, Dry Eye, Exophthalmos, Floaters, Irritation, Itchy Eyes, Loss of Peripheral Vision, Pain, Photophobia, Requires Corrective Lenses, Sees Flashes, Spots in Vision, Tunnel Vision, Other Visual Disturbances, Loss of Vision, Other Ears: absent: As Per HPI, Decreased Hearing, Ear Discharge, Ear Pain, Tinnitus, Abnormal Hearing, Disequilibrium, Dizziness, Other Nose/Mouth/Throat: absent: As Per HPI, Epistaxis, Nasal Congestion, Nasal Discharge, Nasal Obstruction, Nasal Trauma, Nose Pain, Post Nasal Drip, Sinus Pain, Sinus Pressure, Bleeding Gums, Change in Voice, Dental Pain, Dry Mouth, Dysphagia, Halitosis, Hoarsness, Lip Swelling, Mouth Lesions, Mouth Pain, Odynophagia, Sore Throat, Throat Swelling, Tongue Swelling, Facial Pain, Neck Pain, Neck Mass, Other - Breasts Breasts: absent: As Per HPI, Change in Shape, Mass, Pain, Nipple Discharge, Nipple Inversion, Skin Changes, Swelling, Other - Cardiovascular Cardiovascular: absent: As Per HPI, Acrocyanosis, Chest Pain, Chest Pain at Rest, Chest Pain with Activity, Claudication, Diaphoresis, Dyspnea, Dyspnea on Exertion, Edema, Irregular Heart Rhythm, Pain Radiating to Arm/Neck/Jaw, Leg Edema, Leg Ulcers, Lightheadedness, Orthopnea, Palpitations, Paroxysmal Nocturnal Dyspnea, Pedal Edema, Radiating Pain, Rapid Heart Rate, Slow Heart Rate, Syncope, Other - Respiratory Respiratory: absent: As Per HPI, Cough, Dyspnea, Hemoptysis, Dyspnea on Exertion, Wheezing, Snoring, Stridor, Pain on Inspiration, Chest Congestion, Excessive Mucous Production, Change in Mucous Color, Pain with Coughing, Other - Gastrointestinal Gastrointestinal: absent: As Per HPI, Abdominal Pain, Belching, Bloating, Change in Bowel Habits, Change in Stool Character, Coffee Ground Emesis, Constipation, Cramping, Diarrhea, Dyspepsia, Dysphagia, Early Satiety, Excessive Flatus, Fecal Incontinence, Heartburn, Hematemesis, Hematochezia, Loose Stools, Melena, Nausea, Odynophagia, Temesmus, Vomiting, Other - Genitourinary Genitourinary: As Per HPI - Reproductive: Female Reproductive:Female: absent: As Per HPI, Amenorrhea, Amenorrhea/ Control, Currently Menstual, Cycle <21 Days, Cycle >35 Days, Cycle Variable, Menses 1-7 Days, Menses >/= 8 Days, Menses Variable, Cycle > 4 Weeks Between, No Menses for 6 Months, Heavy Menses, Light Menses, Normal Menses, Spotting Between Cycles, S/P Hysterectomy, Menopausal, Post Menopausal, Premenarche, Abnormal Vaginal Bleeding, Dysmenorrhea, Dyspareunia, Genital Lesions, Genital Pruritis, Pelvic Pain, Prolapse Symptoms, Sexual Dysfunction, Vaginal Discharge, Vaginal Dryness, Vaginal Odor, Vaginal Pruritis, Other - Menstruation Menstruation: absent: As Per HPI, Amenorrhea, Amenorrhea/ Control, Currently Menstual, Cycle <21 Days, Cycle >35 Days, Cycle Variable, Menses 1-7 Days, Menses >/= 8 Days, Menses Variable, Cycle > 4 Weeks Between, No Menses for 6 Months, Heavy Menses, Light Menses, Normal Menses, Spotting Between Cycles, S/P Hysterectomy, Menopausal, Post Menopausal, Premenarche, Abnormal Vaginal Bleeding, Dysmenorrhea, Other - Musculoskeletal Musculoskeletal: absent: As Per HPI, Abnormal Gait, Arthralgias, Atrophy, Back Pain, Deformity, Joint Swelling, Limited Range of Motion, Loss of Height, Muscle Cramps, Muscle Weakness, Myalgias, Neck Pain, Numbness, Radiating Pain into Limb, Stiffness, Tingling, Other - Integumentary Integumentary: absent: As Per HPI, Acne, Alopecia, Bleeding Lesions, Change in Hair, Change in Nails, Change in Pigmentation, Changing Lesions, Dry Skin, Erythema, Furuncle, Hirsutism, Lesions, New Lesions, Non-Healing Lesions, Photosensitivity, Pruritus, Rash, Skin Pain, Skin Ulcer, Sores, Striae, Swelling, Unusual Bruising, Wounds, Jaundice, Other - Neurological Neurological: absent: As Per HPI, Abnormal Gait, Abnormal Hearing, Abnormal Movements, Abnormal Speech, Behavioral Changes, Burning Sensations, Confusion, Convulsions, Disequilibrium, Dizziness, Numbness, Focal Weakness, Frequent Falls, Headaches, Lack of Coordination, Loss of Vision, Memory Loss, Paresthesias, Radicular Pain, Restless Legs, Sensory Deficit, Syncope, Tingling, Tremor, Vertigo, Weakness, Other Visual Disturbances, Other - Psychiatric Psychiatric: absent: As Per HPI, Abnormal Sleep Pattern, Anhedonia, Anxiety, Auditory Hallucinations, Behavioral Changes, Change in Appetite, Change in Libido, Confusion, Depression, Difficulty Concentrating, Hallucinations, Homicidal Ideation, Hopelessness, Irritability, Memory Loss, Mood Swings, Panic Attacks, Paranoia, Suicidal Ideation, Visual Hallucinations, Tactile Hallucinations, Other - Endocrine Endocrine: absent: As Per HPI, Change in Body Appearance, Change in Libido, Cold Intolorance, Deepening of Voice, Excessive Sweating, Fatigue, Flushing, Heat Intolorance, Increase in Ring/Shoe/Hat Size, Palpitations, Polydipsia, Polyphagia, Polyuria, Other - Hematologic/Lymphatic Hematologic: As Per HPI Past Patient History - Past Medical History & Family History Past Medical History?: Yes - Past Social History Smoking Status: Former Smoker Alcohol: None Drugs: Denies Home Situation {Lives}: [facility] - CARDIAC Hx Cardiac Disorders: Yes Hx Hypercholesterolemia: Yes Hx Hypertension: Yes - PULMONARY Hx Respiratory Disorders: No - NEUROLOGICAL Hx Neurological Disorder: Yes Hx Alzheimer's Disease: Yes Hx Dementia: Yes Hx Seizures: Yes (last seizure May 2017) - HEENT Hx HEENT Problems: No - RENAL Hx Chronic Kidney Disease: No - ENDOCRINE/METABOLIC Hx Endocrine Disorders: Yes Hx Hypothyroidism: Yes - HEMATOLOGICAL/ONCOLOGICAL Hx Blood Disorders: No Hx AIDS: No Hx Human Immunodeficiency Virus (HIV): No - INTEGUMENTARY Hx Dermatological Problems: No - MUSCULOSKELETAL/RHEUMATOLOGICAL Hx Musculoskeletal Disorders: Yes Hx Falls: Yes - GASTROINTESTINAL Hx Gastrointestinal Disorders: No - GENITOURINARY/GYNECOLOGICAL Hx Genitourinary Disorders: Yes Hx Urinary Tract Infection: Yes - PSYCHIATRIC Hx Psychophysiologic Disorder: No Hx Substance Use: No - SURGICAL HISTORY Hx Surgeries: No - ANESTHESIA Hx Anesthesia: No Hx Anesthesia Reactions: No Hx Malignant Hyperthermia: No Meds Allergies/Adverse Reactions: Allergies Allergy/AdvReac Type Severity Reaction Status Date / Time egg AdvReac DIARRHEA Verified 01/29/18 02:29 milk AdvReac DIARRHEA Verified 01/29/18 02:29 - Medications Medications: Current Medications Acetaminophen (Tylenol 325mg Tab) 650 mg PO Q4 PRN PRN Reason: Pain, Mild (1-3) Acetaminophen (Tylenol 325mg Tab) 650 mg PO Q4 PRN PRN Reason: Fever >100.4 F Ascorbic Acid (Vitamin C 500 Mg Tab) 500 mg PO DAILY [facility] Last Admin: 01/30/18 08:30 Dose: 500 mg Atorvastatin Calcium (Lipitor) 10 mg PO HS [facility] Last Admin: 01/29/18 21:32 Dose: 10 mg Bisacodyl (Dulcolax) 10 mg [place] DAILY PRN PRN Reason: No bowel movement x3 days Donepezil HCl (Aricept) 10 mg PO HS [facility] Last Admin: 01/29/18 22:31 Dose: 10 mg Enalapril Maleate (Vasotec) 5 mg PO DAILY [facility] Last Admin: 01/30/18 08:30 Dose: 5 mg Enoxaparin Sodium (Lovenox) 40 mg SC DAILY [facility]; Protocol Last Admin: 01/30/18 08:20 Dose: 40 mg Epoetin Eric (Procrit) 10,000 unit SC MWF [facility] Last Admin: 01/30/18 08:25 Dose: 10,000 unit Ergocalciferol (Drisdol 50,000 Intl Units Cap) 1 cap PO TH [facility] Ferrous Sulfate (Feosol) 325 mg PO BID [facility] Last Admin: 01/30/18 08:29 Dose: 325 mg Iron Sucrose 200 mg/ Sodium (Chloride) 110 mls @ 110 mls/hr IVPB DAILY [facility] Stop: 02/03/18 15:16 Last Admin: 01/30/18 08:22 Dose: 110 mls/hr Meropenem 500 mg/ Sodium (Chloride) 100 mls @ 100 mls/hr IVPB Q8 [facility]; Protocol Levetiracetam (Keppra) 500 mg PO Q12 [facility] Last Admin: 01/30/18 08:29 Dose: 500 mg Levothyroxine Sodium (Synthroid) 112 mcg PO DAILY@0630 [facility] Last Admin: 01/30/18 06:12 Dose: 112 mcg Magnesium Hydroxide (Milk Of Magnesia) 30 ml PO HS PRN PRN Reason: No bowel movement x 2 days Megestrol Acetate (Megace) 400 mg PO BID [facility] Last Admin: 01/30/18 08:20 Dose: 400 mg Memantine (Namenda) 20 mg PO HS [facility] Last Admin: 01/29/18 22:31 Dose: 20 mg Pantoprazole Sodium (Protonix Ec Tab) 40 mg PO DAILY [facility] Last Admin: 01/30/18 08:24 Dose: 40 mg Saccharomyces Boulardii (Florastor) 250 mg PO BID [facility] Last Admin: 01/30/18 08:29 Dose: 250 mg Physical Exam - Constitutional Appears: Non-toxic, Confused, Cachectic, Chronically Ill - Head Exam Head Exam: NORMOCEPHALIC - Eye Exam Eye Exam: absent: Scleral icterus - ENT Exam ENT Exam: Mucous Membranes Dry, Normal External Ear Exam - Neck Exam Neck exam: Negative for: Lymphadenopathy - Respiratory Exam Respiratory Exam: Decreased Breath Sounds, Clear to Auscultation Bilateral - Cardiovascular Exam Cardiovascular Exam: REGULAR RHYTHM, +S1, +S2 - GI/Abdominal Exam GI & Abdominal Exam: Diminished Bowel Sounds, Soft. absent: Tenderness - Rectal Exam Rectal Exam: Deferred - Exam Exam: NORMAL INSPECTION - Extremities Exam Extremities exam: Negative for: pedal edema - Back Exam Back exam: absent: CVA tenderness (L), CVA tenderness (R) - Neurological Exam Neurological exam: Alert, Altered, CN II-XII Intact - Psychiatric Exam Psychiatric exam: Depressed - Skin Skin Exam: Dry Results - Vital Signs Recent Vital Signs: Last Vital Signs Temp 98.5 F 01/30/18 08:26 Pulse 79 01/30/18 08:26 Resp 19 01/30/18 08:26 BP 117/68 01/30/18 08:26 Pulse Ox 99 01/30/18 08:26 - Labs Result Diagrams: 01/30/18 05:50 01/30/18 05:50 Labs: Laboratory Results - last 24 hr 01/29/18 01/30/18 01/30/18 05:40 05:50 05:50 WBC 13.9 H RBC 4.52 Hgb 9.1 L Hct 30.2 L MCV 66.9 L MCH 20.2 L MCHC 30.1 L RDW 18.8 H Plt Count 483 H Sodium 140 Potassium 4.1 Chloride 108 H Carbon Dioxide 20 L Anion Gap 16 BUN 10 Creatinine 0.7 Est GFR ( Amer) > 60 Est GFR (Non-Af Amer) > 60 Random Glucose 90 Calcium 9.3 Folate 12.9 Assessment & Plan (1) ESBL (extended spectrum beta-lactamase) producing bacteria infection Status: Acute (2) Hematuria Status: Acute Priority: High (3) UTI (urinary tract infection) Status: Acute Priority: High - Assessment and Plan (Free Text) Assessment: IV Merrem added placed on isolation consider eval avoid King catheters
--- NOTE | 2018-01-30 16:09 | CP.PCM.PN ---
Subjective - Date & Time of Evaluation Date of Evaluation: 01/30/18 Time of Evaluation: 15:40 - Subjective Subjective: F/U UTI No A/D, no fever, calm. Objective - Vital Signs/Intake and Output Vital Signs (last 24 hours): Temp Pulse Resp BP Pulse Ox 98.5 F 79 19 117/68 99 01/30/18 08:26 01/30/18 08:26 01/30/18 08:26 01/30/18 08:26 01/30/18 08:26 - Medications Medications: Current Medications Acetaminophen (Tylenol 325mg Tab) 650 mg PO Q4 PRN PRN Reason: Pain, Mild (1-3) Acetaminophen (Tylenol 325mg Tab) 650 mg PO Q4 PRN PRN Reason: Fever >100.4 F Ascorbic Acid (Vitamin C 500 Mg Tab) 500 mg PO DAILY [facility] Last Admin: 01/30/18 08:30 Dose: 500 mg Atorvastatin Calcium (Lipitor) 10 mg PO HS [facility] Last Admin: 01/29/18 21:32 Dose: 10 mg Bisacodyl (Dulcolax) 10 mg [place] DAILY PRN PRN Reason: No bowel movement x3 days Donepezil HCl (Aricept) 10 mg PO HS [facility] Last Admin: 01/29/18 22:31 Dose: 10 mg Enalapril Maleate (Vasotec) 5 mg PO DAILY [facility] Last Admin: 01/30/18 08:30 Dose: 5 mg Enoxaparin Sodium (Lovenox) 40 mg SC DAILY [facility]; Protocol Last Admin: 01/30/18 08:20 Dose: 40 mg Epoetin Eric (Procrit) 10,000 unit SC MWF [facility] Last Admin: 01/30/18 08:25 Dose: 10,000 unit Ergocalciferol (Drisdol 50,000 Intl Units Cap) 1 cap PO TH [facility] Ferrous Sulfate (Feosol) 325 mg PO BID [facility] Last Admin: 01/30/18 08:29 Dose: 325 mg Iron Sucrose 200 mg/ Sodium (Chloride) 110 mls @ 110 mls/hr IVPB DAILY [facility] Stop: 02/03/18 15:16 Last Admin: 01/30/18 08:22 Dose: 110 mls/hr Meropenem 500 mg/ Sodium (Chloride) 100 mls @ 100 mls/hr IVPB Q8 [facility]; Protocol Levetiracetam (Keppra) 500 mg PO Q12 [facility] Last Admin: 01/30/18 08:29 Dose: 500 mg Levothyroxine Sodium (Synthroid) 112 mcg PO DAILY@0630 [facility] Last Admin: 01/30/18 06:12 Dose: 112 mcg Magnesium Hydroxide (Milk Of Magnesia) 30 ml PO HS PRN PRN Reason: No bowel movement x 2 days Megestrol Acetate (Megace) 400 mg PO BID [facility] Last Admin: 01/30/18 08:20 Dose: 400 mg Memantine (Namenda) 20 mg PO HS [facility] Last Admin: 01/29/18 22:31 Dose: 20 mg Pantoprazole Sodium (Protonix Ec Tab) 40 mg PO DAILY [facility] Last Admin: 01/30/18 08:24 Dose: 40 mg Saccharomyces Boulardii (Florastor) 250 mg PO BID [facility] Last Admin: 01/30/18 08:29 Dose: 250 mg - Labs Labs: 01/30/18 05:50 01/30/18 05:50 - Constitutional Appears: No Acute Distress - Head Exam Head Exam: NORMAL INSPECTION - Eye Exam Eye Exam: PERRL - ENT Exam ENT Exam: Normal Exam - Neck Exam Neck Exam: Normal Inspection - Respiratory Exam Respiratory Exam: NORMAL BREATHING PATTERN - Cardiovascular Exam Cardiovascular Exam: REGULAR RHYTHM - GI/Abdominal Exam GI & Abdominal Exam: Soft, Normal Bowel Sounds - Extremities Exam Extremities Exam: Normal Inspection - Neurological Exam Neurological Exam: Awake Additional comments: Confused, disoriented - Skin Skin Exam: Warm Assessment and Plan (1) E. coli UTI Status: Acute (2) Hematuria Status: Acute (3) Anemia Status: Acute (4) HLD (hyperlipidemia) Status: Chronic (5) Hypothyroid Status: Chronic (6) HTN (hypertension) Status: Chronic (7) Hx of seizure disorder Status: Chronic (8) Dementia Status: Chronic - Assessment and Plan (Free Text) Plan: U C-S: E coli. Merren, Iron Sucrose, Procrit, Lovenox and rest of Tx.
[2018-01-30] MEDS: Meropenem 500 MG in Sodium Chloride 0.9% 100 ML IVPB SCH (16:30)
[2018-01-31] MEDS: Meropenem 500 MG in Sodium Chloride 0.9% 100 ML IVPB SCH ×3 (00:18→16:26)
[2018-01-31] MEDS: Levothyroxine 112 MCG TAB PO SCH (07:08)
[2018-01-31] MEDS: Saccharomyces Boulardi 250 mg Cap PO SCH ×2 (08:18→16:22)
[2018-01-31] MEDS: Enoxaparin 40 mg Syringe SC SCH (08:19)
[2018-01-31] MEDS: Pantoprazole 40 mg EC Tab PO SCH (08:19)
[2018-01-31] MEDS: levETIRAcetam 100 mg/ml (5ml) Oral Syringe PO SCH ×2 (08:20→21:11)
[2018-01-31] MEDS: Megestrol Acetate 40 mg/ml Cup PO SCH ×2 (08:21→16:21)
[2018-01-31] MEDS ORDERED: Ergocalciferol 50,000 Intl Units Cap PO SCH (09:00)
--- NOTE | 2018-01-31 15:21 | CP.PCM.PN ---
Subjective - Date & Time of Evaluation Date of Evaluation: 01/31/18 Time of Evaluation: 11:45 - Subjective Subjective: F/U UTI Awake, No A/D, no c/o, Hgb 9.1, Pt's daughter at bed side. Objective - Vital Signs/Intake and Output Vital Signs (last 24 hours): Temp Pulse Resp BP Pulse Ox 97.9 F 80 19 110/67 96 01/31/18 08:24 01/31/18 08:24 01/31/18 08:24 01/31/18 08:24 01/31/18 08:24 - Medications Medications: Current Medications Acetaminophen (Tylenol 325mg Tab) 650 mg PO Q4 PRN PRN Reason: Pain, Mild (1-3) Acetaminophen (Tylenol 325mg Tab) 650 mg PO Q4 PRN PRN Reason: Fever >100.4 F Ascorbic Acid (Vitamin C 500 Mg Tab) 500 mg PO DAILY [facility] Last Admin: 01/31/18 08:19 Dose: 500 mg Atorvastatin Calcium (Lipitor) 10 mg PO HS [facility] Last Admin: 01/30/18 21:22 Dose: 10 mg Bisacodyl (Dulcolax) 10 mg SC DAILY PRN PRN Reason: No bowel movement x3 days Donepezil HCl (Aricept) 10 mg PO HS [facility] Last Admin: 01/30/18 21:22 Dose: 10 mg Enalapril Maleate (Vasotec) 5 mg PO DAILY [facility] Last Admin: 01/31/18 08:19 Dose: 5 mg Enoxaparin Sodium (Lovenox) 40 mg SC DAILY [facility]; Protocol Last Admin: 01/31/18 08:19 Dose: 40 mg Epoetin Eric (Procrit) 10,000 unit SC MWF [facility] Last Admin: 01/30/18 08:25 Dose: 10,000 unit Ergocalciferol (Drisdol 50,000 Intl Units Cap) 1 cap PO TH [facility] Last Admin: 01/31/18 08:18 Dose: 1 cap Ferrous Sulfate (Feosol) 325 mg PO BID [facility] Last Admin: 01/31/18 08:19 Dose: 325 mg Iron Sucrose 200 mg/ Sodium (Chloride) 110 mls @ 110 mls/hr IVPB DAILY [facility] Stop: 02/03/18 15:16 Last Admin: 01/31/18 10:00 Dose: 110 mls/hr Meropenem 500 mg/ Sodium (Chloride) 100 mls @ 100 mls/hr IVPB Q8 [facility]; Protocol Last Admin: 01/31/18 10:00 Dose: 100 mls/hr Levetiracetam (Keppra) 500 mg PO Q12 [facility] Last Admin: 01/31/18 08:20 Dose: 500 mg Levothyroxine Sodium (Synthroid) 112 mcg PO DAILY@0630 [facility] Last Admin: 01/31/18 07:08 Dose: 112 mcg Magnesium Hydroxide (Milk Of Magnesia) 30 ml PO HS PRN PRN Reason: No bowel movement x 2 days Megestrol Acetate (Megace) 400 mg PO BID [facility] Last Admin: 01/31/18 08:21 Dose: 400 mg Memantine (Namenda) 20 mg PO HS [facility] Last Admin: 01/30/18 21:22 Dose: 20 mg Pantoprazole Sodium (Protonix Ec Tab) 40 mg PO DAILY [facility] Last Admin: 01/31/18 08:19 Dose: 40 mg Saccharomyces Boulardii (Florastor) 250 mg PO BID [facility] Last Admin: 01/31/18 08:18 Dose: 250 mg - Labs Labs: 01/30/18 05:50 01/30/18 05:50 - Constitutional Appears: No Acute Distress - Head Exam Head Exam: NORMAL INSPECTION - Eye Exam Eye Exam: PERRL - ENT Exam ENT Exam: Normal Exam - Neck Exam Neck Exam: Normal Inspection - Respiratory Exam Respiratory Exam: NORMAL BREATHING PATTERN - Cardiovascular Exam Cardiovascular Exam: REGULAR RHYTHM - GI/Abdominal Exam GI & Abdominal Exam: Soft, Normal Bowel Sounds - Extremities Exam Extremities Exam: Normal Inspection - Neurological Exam Neurological Exam: Awake, Reflexes Normal Additional comments: Confused. - Skin Skin Exam: Warm Assessment and Plan (1) E. coli UTI Status: Acute (2) Hematuria Status: Acute (3) Anemia Status: Acute (4) HLD (hyperlipidemia) Status: Chronic (5) Hypothyroid Status: Chronic (6) HTN (hypertension) Status: Chronic (7) Hx of seizure disorder Status: Chronic (8) Dementia Status: Chronic - Assessment and Plan (Free Text) Plan: For PICC line in AM, continue Feosol, Iron, Merren and rest of Tx, f/u hematology consult
[2018-02-01] MEDS: Meropenem 500 MG in Sodium Chloride 0.9% 100 ML IVPB SCH ×3 (00:07→16:50)
[2018-02-01 00:52] VITALS: RESP 20; O2SAT 97
[2018-02-01] MEDS: Levothyroxine 112 MCG TAB PO SCH (05:46)
[2018-02-01] MEDS: levETIRAcetam 100 mg/ml (5ml) Oral Syringe PO SCH (08:48)
[2018-02-01] MEDS: Enoxaparin 40 mg Syringe SC SCH (08:48)
[2018-02-01] MEDS: Saccharomyces Boulardi 250 mg Cap PO SCH ×2 (08:49→16:47)
[2018-02-01] MEDS: Pantoprazole 40 mg EC Tab PO SCH (08:50)
[2018-02-01] MEDS: Megestrol Acetate 40 mg/ml Cup PO SCH ×2 (08:56→16:47)
[2018-02-01] MEDS: EPOETIN ALFA 10,000 UNIT/ML ML SC SCH (09:04)
--- NOTE | 2018-02-01 12:13 | CP.PCM.PN ---
Subjective - Date & Time of Evaluation Date of Evaluation: 02/01/18 Time of Evaluation: 09:00 - Subjective Subjective: discussed on rounds no fever Objective - Vital Signs/Intake and Output Vital Signs (last 24 hours): Temp Pulse Resp BP Pulse Ox 98.5 F 83 20 111/74 97 02/01/18 09:00 02/01/18 09:00 02/01/18 09:00 02/01/18 09:00 02/01/18 09:00 - Medications Medications: Current Medications Acetaminophen (Tylenol 325mg Tab) 650 mg PO Q4 PRN PRN Reason: Pain, Mild (1-3) Acetaminophen (Tylenol 325mg Tab) 650 mg PO Q4 PRN PRN Reason: Fever >100.4 F Ascorbic Acid (Vitamin C 500 Mg Tab) 500 mg PO DAILY [facility] Last Admin: 02/01/18 08:50 Dose: 500 mg Atorvastatin Calcium (Lipitor) 10 mg PO HS [facility] Last Admin: 01/31/18 21:11 Dose: 10 mg Bisacodyl (Dulcolax) 10 mg [place] DAILY PRN PRN Reason: No bowel movement x3 days Donepezil HCl (Aricept) 10 mg PO HS [facility] Last Admin: 01/31/18 21:11 Dose: 10 mg Enalapril Maleate (Vasotec) 5 mg PO DAILY [facility] Last Admin: 02/01/18 08:49 Dose: 5 mg Enoxaparin Sodium (Lovenox) 40 mg SC DAILY [facility]; Protocol Last Admin: 02/01/18 08:48 Dose: 40 mg Epoetin Eric (Procrit) 10,000 unit SC MWF [facility] Last Admin: 02/01/18 09:04 Dose: 10,000 unit Ergocalciferol (Drisdol 50,000 Intl Units Cap) 1 cap PO TH [facility] Last Admin: 01/31/18 08:18 Dose: 1 cap Ferrous Sulfate (Feosol) 325 mg PO BID [facility] Last Admin: 02/01/18 08:49 Dose: 325 mg Iron Sucrose 200 mg/ Sodium (Chloride) 110 mls @ 110 mls/hr IVPB DAILY [facility] Stop: 02/03/18 15:16 Last Admin: 02/01/18 08:45 Dose: 110 mls/hr Meropenem 500 mg/ Sodium (Chloride) 100 mls @ 100 mls/hr IVPB Q8 [facility]; Protocol Last Admin: 02/01/18 08:51 Dose: 100 mls/hr Levetiracetam (Keppra) 500 mg PO Q12 [facility] Last Admin: 02/01/18 08:48 Dose: 500 mg Levothyroxine Sodium (Synthroid) 112 mcg PO DAILY@0630 [facility] Last Admin: 02/01/18 05:46 Dose: 112 mcg Magnesium Hydroxide (Milk Of Magnesia) 30 ml PO HS PRN PRN Reason: No bowel movement x 2 days Megestrol Acetate (Megace) 400 mg PO BID [facility] Last Admin: 02/01/18 08:56 Dose: 400 mg Memantine (Namenda) 20 mg PO HS [facility] Last Admin: 01/31/18 21:11 Dose: 20 mg Pantoprazole Sodium (Protonix Ec Tab) 40 mg PO DAILY [facility] Last Admin: 02/01/18 08:50 Dose: 40 mg Saccharomyces Boulardii (Florastor) 250 mg PO BID [facility] Last Admin: 02/01/18 08:49 Dose: 250 mg - Labs Labs: 01/30/18 05:50 01/30/18 05:50 - Constitutional Appears: Non-toxic, Chronically Ill - Head Exam Head Exam: NORMOCEPHALIC - Eye Exam Eye Exam: absent: Nystagmus - ENT Exam ENT Exam: Mucous Membranes Dry - Neck Exam Neck Exam: absent: Lymphadenopathy - Respiratory Exam Respiratory Exam: Decreased Breath Sounds - Cardiovascular Exam Cardiovascular Exam: REGULAR RHYTHM - GI/Abdominal Exam GI & Abdominal Exam: Distended - Rectal Exam Rectal Exam: Deferred - Exam Exam: NORMAL INSPECTION - Extremities Exam Extremities Exam: absent: Pedal Edema - Back Exam Back Exam: absent: CVA tenderness (L), CVA tenderness (R) - Neurological Exam Neurological Exam: Alert, Awake - Psychiatric Exam Psychiatric exam: Depressed - Skin Skin Exam: Dry Assessment and Plan (1) ESBL (extended spectrum beta-lactamase) producing bacteria infection Status: Acute (2) Hematuria Status: Acute (3) UTI (urinary tract infection) Status: Acute - Assessment and Plan (Free Text) Assessment: cont rx x 7 more days in [facility]
[2018-02-01] MEDS ORDERED: Lidocaine 1% Inj (20ml) ONE (13:44)
[2018-02-01 14:01] LABS: HEMOGLOBIN 9.6 g/dL (12.0-16.0); MEAN CELL VOLUME 69.1 fl (81.0-99.0); MEAN CORPUSCULAR HEMOGLOBIN 20.4 pg (27.0-31.0); MEAN CORPUSCULAR HGB CONC 29.6 g/dL (33.0-37.0); RBC 4.7 Mil/uL (3.80-5.20); RED CELL DISTRIBUTION WIDTH 18.8 % (11.5-14.5); WHITE BLOOD COUNT 17.3 K/uL (4.8-10.8)
[2018-02-01 14:16] LABS: ALB/GLOB RATIO 1.1 (1.0-2.1); ALBUMIN 3.8 g/dL (3.5-5.0); ALT/SGPT 14 U/L (9-52); AST/SGOT 33 U/L (14-36); BLOOD UREA NITROGEN 11 mg/dl (7-17); CALCIUM 9.2 mg/dL (8.4-10.2); GFR NON-AFRICAN AMERICAN > 60
--- NOTE | 2018-02-01 14:18 | PCM.SURG1 ---
Surgeon's Initial Post Op Note - Surgeon's Notes Surgeon: Thor Ayers MD Education And Training Manager: NONE Type of Anesthesia: Local Pre-Operative Diagnosis: Poor venous access Operative Findings: US showed patent right basilic vein Post-Operative Diagnosis: Poor venous access Operation Performed: Single lumen picc right arm, 35 cm. Tip is in the SVC. Specimen/Specimens Removed: None Estimated Blood Loss: EBL {In ML}: 2 Blood Products Given: N/A Drains Used: No Drains Post-Op Condition: Fair Date of Surgery/Procedure: 02/01/18 Time of Surgery/Procedure: 14:15
--- NOTE | 2018-02-01 14:25 | VASCULAR ---
PROCEDURE: Date of procedure: 02/01/2018 Procedure: 1. Placement of a right arm PICC with ultrasound and fluoroscopic guidance, CPT 09001 2. PICC tip confirmation with spot radiograph and is in the superior vena cava Medications: 1 percent lidocaine Total Fluoro time: 1.7 Seconds Radiation: 0.17 MGy EBL: 2 cc HISTORY: Infection requiring long-term IV antibiotics TECHNIQUE: Following informed consent and procedure time-out, the patient was placed supine on the interventional table and the right arm prepped and draped in the usual sterile fashion. Ultrasound showed a patent and compressible right basilic vein. After the skin was anesthetized with lidocaine, the basilic vein was accessed with micro micropuncture technique using ultrasound guidance. A guidewire was then advanced under fluoroscopic guidance into the superior vena cava. An image documenting ultrasound guidance for vascular access was permanently saved. The length of the single-lumen 4 [place] PICC was trimmed to 35 centimeters and advanced through a peel-away sheath. The PICC was position with tip of PICC confirm a spot radiograph the superior vena cava. The PICC was secured to the patient's skin. The PICC was flushed. A biopatch and sterile dressing was applied. IMPRESSION: Placement of a single-lumen 4 [place] PICC trimmed to 35 centimeters via right basilic vein. The tip of the PICC is confirmed with spot radiograph and is in the superior vena cava.
--- NOTE | 2018-02-01 15:01 | CP.PCM.DIS ---
Provider - Provider Date of Admission: 01/30/18 07:03 Attending physician: Richard Cobb MD Consults: Jorge/Onco-Dr. Guanaco JACQUES-Dr. Childs Time Spent in preparation of Discharge (in minutes): 35 Diagnosis - Discharge Diagnosis (1) E. coli UTI Status: Acute Comment: Sepsis ruled out (2) Hematuria Status: Acute Priority: High (3) Anemia Status: Acute Priority: High (4) HLD (hyperlipidemia) Status: Chronic Priority: Medium (5) Hypothyroid Status: Chronic Priority: Medium (6) HTN (hypertension) Status: Chronic Priority: Medium (7) Hx of seizure disorder Status: Chronic Priority: Medium (8) Dementia Status: Chronic Priority: High Hospital Course - Lab Results Lab Results: Micro Results 01/28/18 17:19 Blood Blood Culture - Preliminary NO GROWTH AFTER 3 DAYS 01/28/18 17:39 Urine,Catheterized Urine Culture - Final Escherichia Coli Most Recent Lab Values WBC 17.3 K/uL (4.8-10.8) H 02/01/18 13:40 RBC 4.70 Mil/uL (3.80-5.20) 02/01/18 13:40 Hgb 9.6 g/dL (12.0-16.0) L 02/01/18 13:40 Hct 32.5 % (34.0-47.0) L 02/01/18 13:40 MCV 69.1 fl (81.0-99.0) L D 02/01/18 13:40 MCH 20.4 pg (27.0-31.0) L 02/01/18 13:40 MCHC 29.6 g/dL (33.0-37.0) L 02/01/18 13:40 RDW 18.8 % (11.5-14.5) H 02/01/18 13:40 Plt Count 538 K/uL (130-400) H 02/01/18 13:40 MPV 7.8 fl (7.2-11.7) 01/28/18 16:57 Neut % (Auto) 61.9 % (50.0-75.0) 01/28/18 16:57 Lymph % (Auto) 24.0 % (20.0-40.0) 01/28/18 16:57 [place] % (Auto) 9.5 % (0.0-10.0) 01/28/18 16:57 Eos % (Auto) 3.9 % (0.0-4.0) 01/28/18 16:57 Baso % (Auto) 0.7 % (0.0-2.0) 01/28/18 16:57 Neut # (Auto) 9.5 K/uL (1.8-7.0) H 01/28/18 16:57 Lymph # (Auto) 3.7 K/uL (1.0-4.3) 01/28/18 16:57 [place] # (Auto) 1.5 K/uL (0.0-0.8) H 01/28/18 16:57 Eos # (Auto) 0.6 K/uL (0.0-0.7) 01/28/18 16:57 Baso # (Auto) 0.1 K/uL (0.0-0.2) 01/28/18 16:57 Retic Count 1.8 % (0.5-1.5) H 01/29/18 05:40 pO2 28 mm/Hg (30-55) L 01/28/18 17:00 VBG pH 7.49 (7.32-7.43) H 01/28/18 17:00 VBG pCO2 30 mmHg (40-60) L 01/28/18 17:00 VBG HCO3 24.2 mmol/L 01/28/18 17:00 VBG Total CO2 23.8 mmol/L (22-28) 01/28/18 17:00 VBG O2 Sat (Calc) 58.2 % (40-65) 01/28/18 17:00 VBG Base Excess 0.4 mmol/L (0.0-2.0) 01/28/18 17:00 Sodium 186.0 mmol/L (132-148) H* 01/28/18 17:00 Chloride 122.0 mmol/L (98-107) H 01/28/18 17:00 Glucose 74 mg/dL (65-105) 01/28/18 17:00 Lactate 2.1 mmol/L (0.7-2.1) 01/28/18 17:00 FiO2 21.0 % 01/28/18 17:00 Crit Value Called To Courtney lujan 01/28/18 17:00 Crit Value Called By 23 01/28/18 17:00 Crit Value Read Back Y 01/28/18 17:00 Blood Gas Notified Time 1705 01/28/18 17:00 Sodium 137 mmol/l (132-148) 02/01/18 13:40 Potassium 4.2 MMOL/L (3.6-5.0) 02/01/18 13:40 Chloride 105 mmol/L (98-107) 02/01/18 13:40 Carbon Dioxide 20 mmol/L (22-30) L 02/01/18 13:40 Anion Gap 16 (10-20) 02/01/18 13:40 BUN 11 mg/dl (7-17) 02/01/18 13:40 Creatinine 0.7 mg/dl (0.7-1.2) 02/01/18 13:40 Est GFR ( Amer) > 60 02/01/18 13:40 Est GFR (Non-Af Amer) > 60 02/01/18 13:40 Random Glucose 161 mg/dL (65-105) H 02/01/18 13:40 Calcium 9.2 mg/dL (8.4-10.2) 02/01/18 13:40 Phosphorus 4.5 mg/dl (2.5-4.5) 01/29/18 05:40 Magnesium 2.1 MG/DL (1.6-2.3) 01/29/18 05:40 Iron 14 ug/dL (37-170) L 01/29/18 05:40 TIBC 294 ug/dL (250-450) 01/29/18 05:40 % Saturation 5 % (20-55) L 01/29/18 05:40 Ferritin 11.2 ng/Ml (11.1-264.0) 01/29/18 05:40 Total Bilirubin 0.4 mg/dl (0.2-1.3) 02/01/18 13:40 AST 33 U/L (14-36) 02/01/18 13:40 ALT 14 U/L (9-52) 02/01/18 13:40 Alkaline Phosphatase 70 U/L (38-126) 02/01/18 13:40 Total Protein 7.3 G/DL (6.3-8.2) 02/01/18 13:40 Albumin 3.8 g/dL (3.5-5.0) 02/01/18 13:40 Globulin 3.6 gm/dL (2.2-3.9) 02/01/18 13:40 Albumin/Globulin Ratio 1.1 (1.0-2.1) 02/01/18 13:40 Folate 12.9 ng/mL 01/29/18 05:40 Thyroxine (T4) 9.07 ug/dl (5.5-11.0) 01/29/18 05:40 TSH 3rd Generation 3.39 mIU/ML (0.46-4.68) 01/29/18 05:40 Urine Color Yellow (YELLOW) 01/28/18 17:39 Urine Clarity Cloudy (Clear) 01/28/18 17:39 Urine pH 8.0 (5.0-8.0) 01/28/18 17:39 Ur Specific [place] 1.016 (1.003-1.030) 01/28/18 17:39 Urine Protein 30 mg/dL (NEGATIVE) 01/28/18 17:39 Urine Glucose (UA) Neg mg/dL (Normal) 01/28/18 17:39 Urine Ketones Negative mg/dL (NEGATIVE) 01/28/18 17:39 Urine Blood Small (NEGATIVE) 01/28/18 17:39 Urine Nitrate Negative (NEGATIVE) 01/28/18 17:39 Urine Bilirubin Negative (NEGATIVE) 01/28/18 17:39 Urine Urobilinogen 0.2-1.0 mg/dL (0.2-1.0) 01/28/18 17:39 Ur Leukocyte Esterase Mod Kam/uL (Negative) 01/28/18 17:39 Urine RBC (Auto) 5 /hpf (0-3) H 01/28/18 17:39 Urine Microscopic WBC 14 /hpf (0-5) H 01/28/18 17:39 Ur Squamous Epith Cells < 1 /hpf (0-5) 01/28/18 17:39 Urine Bacteria Occ (<OCC) H 01/28/18 17:39 - Date & Time of H&P Date of H&P: 01/29/18 Discharge Exam - Head Exam Head Exam: NORMOCEPHALIC - Eye Exam Eye Exam: PERRL - ENT Exam ENT Exam: Normal Exam - Neck Exam Neck exam: Normal Inspection - Respiratory Exam Respiratory Exam: NORMAL BREATHING PATTERN - Cardiovascular Exam Cardiovascular Exam: REGULAR RHYTHM - GI/Abdominal Exam GI & Abdominal Exam: Normal Bowel Sounds, Soft - Extremities Exam Extremities exam: normal inspection - Neurological Exam Neurological exam: Reflexes Normal Additional comments: awake, confused - Skin Skin Exam: Warm Discharge Plan - Discharge Medications Prescriptions: MEROPENEM 500 MG in NS [Merrem IV 500 MG/NS 50 ML] 500 mg IV Q8 7 Days bag Iron Sucrose Complex [Venofer] 200 mg IV DAILY #2 vial - Follow Up Plan Condition: FAIR Disposition: TRANSF TO SNF Instructions: Meropenem Referrals: Richard Cobb MD [Family Provider] -
[2018-02-01 17:16] VITALS: BP 114/75; PULSE 80; TEMP 99.5
--- NOTE | 2018-02-03 23:36 | CP.PCM.PN ---
Subjective - Date & Time of Evaluation Date of Evaluation: 01/30/18 Time of Evaluation: 12:00 - Subjective Subjective: No complaints. Objective - Vital Signs/Intake and Output Vital Signs (last 24 hours): Temp Pulse Resp BP Pulse Ox 99.5 F 80 20 114/75 97 02/01/18 17:15 02/01/18 17:15 02/01/18 17:15 02/01/18 17:15 02/01/18 17:15 - Labs Labs: 02/01/18 13:40 02/01/18 13:40 - Head Exam Head Exam: ATRAUMATIC - Eye Exam Eye Exam: Normal appearance - ENT Exam ENT Exam: Mucous Membranes Dry - Respiratory Exam Respiratory Exam: NORMAL BREATHING PATTERN - Cardiovascular Exam Cardiovascular Exam: +S1, +S2 - GI/Abdominal Exam GI & Abdominal Exam: Normal Bowel Sounds Assessment and Plan (1) Leukocytosis Assessment & Plan: on antibiotics if no improvement will send flow cytometery Status: Acute (2) Anemia Assessment & Plan: iron deficiency on IV iron Status: Acute
--- NOTE | 2018-02-03 23:37 | CP.PCM.PN ---
Subjective - Date & Time of Evaluation Date of Evaluation: 02/01/18 Time of Evaluation: 12:00 - Subjective Subjective: No complaints. Objective - Vital Signs/Intake and Output Vital Signs (last 24 hours): Temp Pulse Resp BP Pulse Ox 99.5 F 80 20 114/75 97 02/01/18 17:15 02/01/18 17:15 02/01/18 17:15 02/01/18 17:15 02/01/18 17:15 - Labs Labs: 02/01/18 13:40 02/01/18 13:40 - Head Exam Head Exam: ATRAUMATIC - Eye Exam Eye Exam: Normal appearance - ENT Exam ENT Exam: Mucous Membranes Dry - Respiratory Exam Respiratory Exam: NORMAL BREATHING PATTERN - Cardiovascular Exam Cardiovascular Exam: +S1, +S2 - GI/Abdominal Exam GI & Abdominal Exam: Normal Bowel Sounds Assessment and Plan (1) Leukocytosis Assessment & Plan: on antibiotics WBC not normalizing, will send flow cytometery Status: Acute (2) Anemia Assessment & Plan: iron deficiency anemia on IV iron Status: Acute
== END 2018-02-01 19:43 | DRG 690 ==
LOC: H.ER 16:08 → H.ERHOLD 18:09 → H.MEDSURG1 20:39 → OBSVTOIN 01-30 07:03
PROVIDERS: ADMIT Internal Medicine Pulmonary Disease; ATTEND Internal Medicine Pulmonary Disease
PROC: 02HV33Z Insertion of Infusion Device into Superior Vena Cava, Percutaneous Approach (ICD-10-PCS; principal; 2018-02-01)
PROC: B518ZZA Fluoroscopy of Superior Vena Cava, Guidance (ICD-10-PCS; 2018-02-01)
PROC: B548ZZA Ultrasonography of Superior Vena Cava, Guidance (ICD-10-PCS; 2018-02-01)
PROC: 3E04329 Introduction of Other Anti-infective into Central Vein, Percutaneous Approach (ICD-10-PCS; 2018-02-01)
DX: N39.0 Urinary tract infection, site not specified (principal); F02.80 Dementia in other diseases classified elsewhere, unspecified severity, without behavioral disturbance, psychotic disturbance, mood disturbance, and anxiety; G30.9 Alzheimer's disease, unspecified; B96.20 Unspecified Escherichia coli [E. coli] as the cause of diseases classified elsewhere; D72.828 Other elevated white blood cell count; Z16.12 Extended spectrum beta lactamase (ESBL) resistance; G40.909 Epilepsy, unspecified, not intractable, without status epilepticus; D50.9 Iron deficiency anemia, unspecified; R31.9 Hematuria, unspecified; E03.9 Hypothyroidism, unspecified; I10 Essential (primary) hypertension; E78.5 Hyperlipidemia, unspecified; E78.00 Pure hypercholesterolemia, unspecified; Z87.891 Personal history of nicotine dependence; Z87.440 Personal history of urinary (tract) infections; Z99.3 Dependence on wheelchair; Z91.012 Allergy to eggs; Z91.011 Allergy to milk products

== ENCOUNTER 2018-02-15 16:10 | Inpatient (IN) | payer MEDICARE, MEDICAID ==
--- NOTE | 2018-02-15 16:34 | ED PDOC ---
Upper Extremity Pain/Injury Time Seen by Provider: 02/15/18 16:21 Chief Complaint (Nursing): Upper Extremity Problem/Injury History Per: Family Onset/Duration Of Symptoms: Days (2) Current Symptoms Are (Timing): Still Present Severity: Mild Exacerbating Factor(s): Other (s/p PICC) Additional Complaint(s): Redness and swelling right upper ext noted x 2 days. Pt has had PICC line right bicep for IV antibiotics and Fe infusion. Picc line removed yesterday after redness and swelling noted. No fever. No chest pain or SOB Past Medical History Vital Signs: Last Vital Signs Temp 100.1 F H 02/15/18 16:20 Pulse 98 H 02/15/18 16:20 Resp 18 02/15/18 16:20 BP 105/65 02/15/18 16:20 Pulse Ox 99 02/15/18 16:20 - Medical History PMH: Alzheimer's Disease, Dementia, HTN, Hypercholesterolemia, Hypothyroidism, Seizures (last seizure May 2017) Denies: HIV, Chronic Kidney Disease - Family History Family History: States: Unknown Family Hx - Home Medications Home Medications: Ambulatory Orders Medication Instructions Recorded Atorvastatin [Lipitor] 10 mg PO HS 03/17/17 Enalapril Maleate [Vasotec] 5 mg PO DAILY 03/17/17 Memantine HCl/Donepezil HCl 1 cap PO HS 03/17/17 [Namzaric 28 mg-10 mg Capsule] Acetaminophen [Tylenol 325mg tab] 650 mg PO Q4 PRN 01/28/18 Acetaminophen [Tylenol 325mg tab] 650 mg PO Q4 PRN 01/28/18 Ascorbic Acid [Vitamin C Liq] 5 ml PO DAILY 01/28/18 Bisacodyl [Dulcolax] 10 mg DC DAILY PRN 01/28/18 Epoetin Eric [Procrit] 10,000 unit SC MWF 01/28/18 Ergocalciferol (Vitamin D2) 50,000 unit PO TH 01/28/18 [Vitamin D2] Levothyroxine [Synthroid] 112 mcg PO DAILY 01/28/18 Magnesium Hydroxide [Milk Of 30 ml PO HS PRN 01/28/18 Magnesia] Megestrol Acetate [Megace] 10 ml PO BID 01/28/18 Omeprazole 20 mg PO DAILY 01/28/18 levETIRAcetam Solution [Keppra] 500 mg PO Q12 01/28/18 Amoxicillin/Clavulanate [Augmentin 1 tab PO Q12 02/15/18 875 MG-125 MG Tab] Ferrous Sulfate [Ferosul] 7.4 ml PO BID 02/15/18 Saccharomyces Boulardi [Florastor] 250 mg PO BID 02/15/18 - Allergies Allergies/Adverse Reactions: Allergies Allergy/AdvReac Type Severity Reaction Status Date / Time egg AdvReac DIARRHEA Verified 02/15/18 16:20 milk AdvReac DIARRHEA Verified 02/15/18 16:20 Review of Systems ROS Statement: Except As Marked, All Systems Reviewed And Found Negative Skin: Positive for: Other (Swelling and redness right bicep and anticubital area) Physical Exam - Reviewed Nursing Documentation Reviewed: Yes Vital Signs Reviewed: Yes - Physical Exam Appears: Positive for: Non-toxic, No Acute Distress Head Exam: Positive for: ATRAUMATIC, NORMAL INSPECTION, NORMOCEPHALIC Skin: Positive for: Normal Color, Warm, DRY Eye Exam: Positive for: EOMI, Normal appearance, PERRL ENT: Positive for: Normal ENT Inspection Neck: Positive for: Normal, Painless ROM Cardiovascular/Chest: Positive for: Regular Rate, Rhythm Respiratory: Positive for: CNT, Normal Breath Sounds Gastrointestinal/Abdominal: Positive for: Normal Exam, Soft Back: Positive for: Normal Inspection Extremity: Positive for: Other (Right medial bicep, redness warmth and tenderness extending to anticubital area and right medial forearm) Neurologic/Psych: Positive for: Alert (Awake, non verbal) - Laboratory Results Result Diagrams: 02/15/18 16:42 02/15/18 16:42 - ECG O2 Sat by Pulse Oximetry: 99 Disposition - Clinical Impression Clinical Impression: Sepsis, Cellulitis, DVT (deep venous thrombosis) - Patient ED Disposition Is Patient to be Admitted: Yes - Disposition Disposition Time: 18:09 Condition: FAIR Forms: [facility] (Macedonian) - Pt Status Changed To: Hospital Disposition Of: Inpatient - Admit Certification Admit to Inpatient:: After my assessment, the patient will require hospitalization for at least two midnights. This is because of the severity of symptoms shown, intensity of services needed, and/or the medical risk in this patient being treated as an outpatient. - POA Present On Arrival: None
[2018-02-15 16:56] LABS: BASO # 0.1 K/uL (0.0-0.2); BASO % 0.8 % (0.0-2.0); EOS # 0.5 K/uL (0.0-0.7); EOS % 2.8 % (0.0-4.0); HEMOGLOBIN 10.8 g/dL (12.0-16.0); LYMPH # 2.4 K/uL (1.0-4.3); LYMPH % 14.9 % (20.0-40.0); MEAN CELL VOLUME 73.7 fl (81.0-99.0); MEAN CORPUSCULAR HEMOGLOBIN 22.5 pg (27.0-31.0); MEAN CORPUSCULAR HGB CONC 30.5 g/dL (33.0-37.0); MEAN PLATELET VOLUME 7.6 fl (7.2-11.7); MONO # 1.7 K/uL (0.0-0.8); MONO % 10.3 % (0.0-10.0); NEUT # 11.6 K/uL (1.8-7.0); NEUT % 71.2 % (50.0-75.0); NRBC % 0.2 % (0.0-0.0); RBC 4.79 Mil/uL (3.80-5.20); WHITE BLOOD COUNT 16.3 K/uL (4.8-10.8)
[2018-02-15 16:58] LABS: VENOUS BLOOD GAS BASE EXCESS -1.2 mmol/L (0.0-2.0); VENOUS BLOOD GAS PCO2 39 mmHg (40-60); VENOUS BLOOD GAS PO2 25 mm/Hg (30-55); VENOUS BLOOD PH 7.39 (7.32-7.43)
[2018-02-15 17:02] LABS: INR 1.5; PROTHROMBIN TIME 17.1 Seconds (9.8-13.1)
[2018-02-15 17:38] LABS: ALB/GLOB RATIO 0.9 (1.0-2.1); ALBUMIN 3.5 g/dL (3.5-5.0); ALT/SGPT 34 U/L (9-52); AST/SGOT 45 U/L (14-36); BLOOD UREA NITROGEN 14 mg/dl (7-17); CALCIUM 8.8 mg/dL (8.4-10.2); GFR NON-AFRICAN AMERICAN > 60
--- NOTE | 2018-02-15 17:38 | US ---
Date of service: 02/15/2018 PROCEDURE: RIGHT UPPER EXTREMITY VENOUS ULTRASOUND HISTORY: swelling s/p PICC COMPARISON: None available. TECHNIQUE: Grayscale and duplex Doppler ultrasound of the right upper extremity major deep veins was performed including but not limited to graded compression and augmentation. FINDINGS: Extensive widespread thrombosis of multiple upper extremity veins is appreciate the right arm. Pole of the right cephalic vein exhibits good vigorous phasic color Doppler blood flow and compressibility indicating patency as well as the proximal subclavian vein. The axillary brachial and basilic veins are noncompressible exhibit no adequate color Doppler blood flow spontaneously and are compatible with occlusive thrombosis. Occlusive thrombosis also affects the mid to distal subclavian vein as well as the ulnar and radial veins. IMPRESSION: Occlusive thrombosis affects the axillary brachial basilic ulnar and radial veins as well as the mid to distal subclavian vein as discussed above.
[2018-02-15] MEDS ORDERED: Sodium Chloride 0.9% 1,000 ML IV STA (18:06)
[2018-02-15] MEDS ORDERED: Enoxaparin 60 mg Syringe SC ONE (18:30)
[2018-02-15] MEDS ORDERED: Piperacillin/Tazobact 3.375 GM in Sodium Chloride 0.9% 100 ML IVPB ONE (18:30)
[2018-02-15] MEDS ORDERED: DiphenhydrAMINE 50 mg/ml Inj ONE (19:38)
[2018-02-15] MEDS ORDERED: DiphenhydrAMINE 50 mg/ml Inj IVP STA (19:41)
[2018-02-15] MEDS ORDERED: Magnesium Hydroxide Susp 30 ml UD PO PRN (19:58)
[2018-02-15] MEDS: levETIRAcetam 100 mg/ml (5ml) Oral Syringe PO SCH (20:24)
[2018-02-15] MEDS ORDERED: Patient's Own Med (Memantine Hcl/Donepezil Hcl [Namzaric 28 Mg-10 Mg Capsule] 1 CAP) PO SCH (22:00)
[2018-02-15] MEDS: Piperacillin/Tazobact 3.375 GM in Sodium Chloride 0.9% 100 ML IVPB SCH (23:30)
[2018-02-16] MEDS: Clindamycin 600mg/50ml D5W 600 MG/50 ML VIAL IVPB SCH ×3 (00:19→17:58)
[2018-02-16 02:40] LABS: SQUAMOUS EPITHIAL 3 /hpf (0-5); URINE BACTERIA RARE (<OCC); URINE BILIRUBIN NEGATIVE (NEGATIVE); URINE BLOOD NEGATIVE (NEGATIVE); URINE CLARITY CLOUDY (Clear); URINE COLOR YELLOW (YELLOW); URINE GLUCOSE (UA) NEG (NEGATIVE); URINE LEUKOCYTE ESTERASE LARGE Leu/uL (Negative); URINE PROTEIN NEGATIVE (NEGATIVE); URINE UROBILINOGEN 0.2-1.0 mg/dL (0.2-1.0)
[2018-02-16] MEDS: Piperacillin/Tazobact 3.375 GM in Sodium Chloride 0.9% 100 ML IVPB SCH ×4 (03:10→21:05)
[2018-02-16] MEDS: Levothyroxine 112 MCG TAB PO SCH (06:06)
[2018-02-16] MEDS: Ferrous Sulfate 220 MG/5 ML PO SCH ×2 (08:48→17:55)
[2018-02-16] MEDS: Enoxaparin 60 mg Syringe SC SCH ×2 (08:48→20:29)
[2018-02-16] MEDS: Saccharomyces Boulardi 250 mg Cap PO SCH ×2 (08:49→17:55)
[2018-02-16] MEDS: levETIRAcetam 100 mg/ml (5ml) Oral Syringe PO SCH ×2 (08:49→20:29)
[2018-02-16] MEDS: Megestrol Acetate 40 mg/ml Cup PO SCH ×2 (08:50→17:55)
[2018-02-16] MEDS: Pantoprazole 20 mg EC Tab PO SCH (08:51)
[2018-02-16] MEDS: Ascorbic Acid 500 mg/5 ml Liq(50 ml) PO SCH (08:59)
[2018-02-16 09:26] LABS: HEMOGLOBIN 9.6 g/dL (12.0-16.0); MEAN CORPUSCULAR HEMOGLOBIN 22.2 pg (27.0-31.0); MEAN CORPUSCULAR HGB CONC 30.5 g/dL (33.0-37.0); RBC 4.31 Mil/uL (3.80-5.20); RED CELL DISTRIBUTION WIDTH 24.4 % (11.5-14.5); WHITE BLOOD COUNT 8.5 K/uL (4.8-10.8)
[2018-02-16 09:45] LABS: ALB/GLOB RATIO 0.8 (1.0-2.1); ALT/SGPT 30 U/L (9-52); AST/SGOT 40 U/L (14-36); BLOOD UREA NITROGEN 12 mg/dl (7-17); CALCIUM 8.9 mg/dL (8.4-10.2); GFR NON-AFRICAN AMERICAN > 60; HDL CHOLESTEROL 34 MG/DL (30-70)
[2018-02-16 09:56] LABS: LDL CHOLESTEROL 54 mg/dL (0-129)
[2018-02-16 10:16] LABS: T4 7.32 ug/dl (5.5-11.0)
--- NOTE | 2018-02-16 14:36 | CP.PCM.HP ---
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 No c/o of pain. Pt with multiple medical conditi on, including Dementia/Alzheimer, Seizure, HTN. Hx by family/NH Worsening symptoms: Non verbal, DVT on U-S. Aggravated factor: Poor historian/ movements. No: fever, chills, n/v/d, abdominal pain, urinary symptoms, CP, tachycardia, SOB, cough, sick contact. EKG: Normal sinus rhythm. Present on Admission - Present on Admission Any Indicators Present on Admission: Yes History of DVT/PE: Yes Review of Systems - Review of Systems Systems not reviewed;Unavailable: Acuity of Condition, Dementia Past Patient History - Past Medical History & Family History Past Medical History?: Yes - Past Social History Smoking Status: Never Smoked Alcohol: None Drugs: Denies Home Situation {Lives}: Care Home - CARDIAC Hx Cardiac Disorders: Yes Hx Hypercholesterolemia: Yes Hx Hypertension: Yes - PULMONARY Hx Respiratory Disorders: No - NEUROLOGICAL Hx Neurological Disorder: Yes Hx Alzheimer's Disease: Yes Hx Dementia: Yes Hx Seizures: Yes - HEENT Hx HEENT Problems: No - RENAL Hx Chronic Kidney Disease: No - ENDOCRINE/METABOLIC Hx Endocrine Disorders: Yes Hx Hypothyroidism: Yes - HEMATOLOGICAL/ONCOLOGICAL Hx Blood Disorders: No Hx Human Immunodeficiency Virus (HIV): No - INTEGUMENTARY Hx Dermatological Problems: No - MUSCULOSKELETAL/RHEUMATOLOGICAL Hx Musculoskeletal Disorders: Yes Hx Falls: Yes (as per daughter) - GASTROINTESTINAL Hx Gastrointestinal Disorders: No - GENITOURINARY/GYNECOLOGICAL Hx Genitourinary Disorders: Yes - PSYCHIATRIC Hx Psychophysiologic Disorder: No Hx Substance Use: No - SURGICAL HISTORY Hx Surgeries: Yes Other/Comment: PICC line - ANESTHESIA Hx Anesthesia: Yes Hx Anesthesia Reactions: No Hx Malignant Hyperthermia: No Has any member of the family had a problem w/ anesthesia?: No Meds Allergies/Adverse Reactions: Allergies Allergy/AdvReac Type Severity Reaction Status Date / Time vancomycin Allergy RASH Verified 02/15/18 21:40 egg AdvReac DIARRHEA Verified 02/15/18 16:20 milk AdvReac DIARRHEA Verified 02/15/18 16:20 Physical Exam - Constitutional Appears: No Acute Distress - Head Exam Head Exam: NORMAL INSPECTION - Eye Exam Eye Exam: PERRL - ENT Exam ENT Exam: Normal Exam - Neck Exam Neck exam: Positive for: Normal Inspection - Respiratory Exam Respiratory Exam: NORMAL BREATHING PATTERN - Cardiovascular Exam Cardiovascular Exam: REGULAR RHYTHM - GI/Abdominal Exam GI & Abdominal Exam: Soft - Extremities Exam Extremities exam: Positive for: tenderness (R medial bicep, warmth and redness extending to the anticubital area and R medial forearm.) - Neurological Exam Neurological exam: Reflexes Normal Additional comments: Awake, non verbal, - Psychiatric Exam Additional comments: Calm - Skin Skin Exam: Warm Results - Vital Signs Recent Vital Signs: Last Vital Signs Temp 98.7 F 02/16/18 12:44 Pulse 90 02/16/18 12:44 Resp 20 02/16/18 12:44 BP 106/62 02/16/18 12:44 Pulse Ox 98 02/16/18 12:44 reviewed Moise - Labs Result Diagrams: 02/16/18 08:45 02/16/18 08:45 Labs: Laboratory Results - last 24 hr 02/15/18 02/15/18 02/15/18 16:42 16:42 16:46 WBC 16.3 H RBC 4.79 Hgb 10.8 L Hct 35.3 MCV 73.7 L D MCH 22.5 L MCHC 30.5 L RDW 25.0 H Plt Count 424 H D MPV 7.6 Neut % (Auto) 71.2 Lymph % (Auto) 14.9 L [place] % (Auto) 10.3 H Eos % (Auto) 2.8 Baso % (Auto) 0.8 Neut # (Auto) 11.6 H Lymph # (Auto) 2.4 [place] # (Auto) 1.7 H Eos # (Auto) 0.5 Baso # (Auto) 0.1 PT 17.1 H INR 1.5 pO2 VBG pH VBG pCO2 VBG HCO3 VBG Total CO2 VBG O2 Sat (Calc) VBG Base Excess VBG Potassium Glucose Lactate FiO2 Blood Gas Comments Crit Value Called To Crit Value Called By Crit Value Read Back Blood Gas Notified Time Sodium 135 Potassium 4.4 Chloride 103 Carbon Dioxide 19 L Anion Gap 17 BUN 14 Creatinine 0.6 L Est GFR ( Amer) > 60 Est GFR (Non-Af Amer) > 60 Random Glucose 87 Calcium 8.8 Total Bilirubin 0.7 AST 45 H D ALT 34 Alkaline Phosphatase 69 Total Protein 7.6 Albumin 3.5 Globulin 4.1 H Albumin/Globulin Ratio 0.9 L Triglycerides Cholesterol LDL Cholesterol Direct HDL Cholesterol Thyroxine (T4) TSH 3rd Generation Venous Blood Potassium Urine Color Urine Clarity Urine pH Ur Specific [place] Urine Protein Urine Glucose (UA) Urine Ketones Urine Blood Urine Nitrate Urine Bilirubin Urine Urobilinogen Ur Leukocyte Esterase Urine RBC (Auto) Urine Microscopic WBC Ur Squamous Epith Cells Urine Bacteria 02/15/18 02/16/18 02/16/18 16:51 02:00 08:45 WBC 8.5 RBC 4.31 Hgb 9.6 L Hct 31.5 L MCV 73.0 L MCH 22.2 L MCHC 30.5 L RDW 24.4 H Plt Count 417 H MPV Neut % (Auto) Lymph % (Auto) [place] % (Auto) Eos % (Auto) Baso % (Auto) Neut # (Auto) Lymph # (Auto) [place] # (Auto) Eos # (Auto) Baso # (Auto) PT INR pO2 25 L VBG pH 7.39 VBG pCO2 39 L VBG HCO3 22.6 VBG Total CO2 24.8 VBG O2 Sat (Calc) 41.1 VBG Base Excess -1.2 L VBG Potassium 3.9 Glucose 83 Lactate 2.5 H FiO2 21.0 Blood Gas Comments Lac=2.5 Crit Value Called To vira Mcdaniels Crit Value Called By 22 Crit Value Read Back Y Blood Gas Notified Time 1657 Sodium 134.0 Potassium Chloride 102.0 Carbon Dioxide Anion Gap BUN Creatinine Est GFR ( Amer) Est GFR (Non-Af Amer) Random Glucose Calcium Total Bilirubin AST ALT Alkaline Phosphatase Total Protein Albumin Globulin Albumin/Globulin Ratio Triglycerides Cholesterol LDL Cholesterol Direct HDL Cholesterol Thyroxine (T4) TSH 3rd Generation Venous Blood Potassium 3.9 Urine Color Yellow Urine Clarity Cloudy Urine pH 6.0 Ur Specific [place] 1.009 Urine Protein Negative Urine Glucose (UA) Neg Urine Ketones Negative Urine Blood Negative Urine Nitrate Negative Urine Bilirubin Negative Urine Urobilinogen 0.2-1.0 Ur Leukocyte Esterase Large Urine RBC (Auto) 4 H Urine Microscopic WBC 104 H Ur Squamous Epith Cells 3 Urine Bacteria Rare 02/16/18 08:45 WBC RBC Hgb Hct MCV MCH MCHC RDW Plt Count MPV Neut % (Auto) Lymph % (Auto) [place] % (Auto) Eos % (Auto) Baso % (Auto) Neut # (Auto) Lymph # (Auto) [place] # (Auto) Eos # (Auto) Baso # (Auto) PT INR pO2 VBG pH VBG pCO2 VBG HCO3 VBG Total CO2 VBG O2 Sat (Calc) VBG Base Excess VBG Potassium Glucose Lactate FiO2 Blood Gas Comments Crit Value Called To Crit Value Called By Crit Value Read Back Blood Gas Notified Time Sodium 142 Potassium 3.8 Chloride 112 H Carbon Dioxide 20 L Anion Gap 14 BUN 12 Creatinine 0.6 L Est GFR ( Amer) > 60 Est GFR (Non-Af Amer) > 60 Random Glucose 110 H Calcium 8.9 Total Bilirubin 0.5 AST 40 H ALT 30 Alkaline Phosphatase 67 Total Protein 6.7 Albumin 3.0 L Globulin 3.6 Albumin/Globulin Ratio 0.8 L Triglycerides 45 Cholesterol 94 LDL Cholesterol Direct 54 HDL Cholesterol 34 Thyroxine (T4) 7.32 TSH 3rd Generation 0.41 L Venous Blood Potassium Urine Color Urine Clarity Urine pH Ur Specific [place] Urine Protein Urine Glucose (UA) Urine Ketones Urine Blood Urine Nitrate Urine Bilirubin Urine Urobilinogen Ur Leukocyte Esterase Urine RBC (Auto) Urine Microscopic WBC Ur Squamous Epith Cells Urine Bacteria reviewed J.P. - EKG Data EKG comments: reviewed J.P. - Imaging and Cardiology Venous US Status: Report reviewed by me (J.P.) Assessment & Plan (1) DVT (deep venous thrombosis) Status: Acute Priority: High Comment: RUE (2) Cellulitis of right upper extremity Status: Acute (3) Dementia Status: Chronic Priority: High (4) HLD (hyperlipidemia) Status: Chronic Priority: Medium (5) HTN (hypertension) Status: Chronic Priority: Medium (6) Hx of seizure disorder Status: Chronic Priority: Medium (7) Hypothyroid Status: Chronic Priority: Medium - Assessment and Plan (Free Text) Plan: F/U U C-S, continue Clindamicyn, Zosyn, Lovenox, Ferrous Sulfate, Keppra, L ipitor, Procrit, Synthroid and rest of Tx. - Date & Time Date: 02/16/18 Time: 15:20
--- NOTE | 2018-02-16 19:04 | CARD ---
APPROVED REPORT Date of service: 02/15/2018 EKG Measurement Heart [id number] <Conclusion> Normal sinus rhythm Normal ECG
[2018-02-16] MEDS: DiphenhydrAMINE 50 mg/ml Inj IVP PRN (21:48)
[2018-02-17] MEDS: Clindamycin 600mg/50ml D5W 600 MG/50 ML VIAL IVPB SCH ×2 (01:32→16:04)
[2018-02-17] MEDS: Levothyroxine 112 MCG TAB PO SCH (07:01)
[2018-02-17] MEDS: levETIRAcetam 100 mg/ml (5ml) Oral Syringe PO SCH ×2 (09:22→21:19)
[2018-02-17] MEDS: Ferrous Sulfate 220 MG/5 ML PO SCH (09:23)
[2018-02-17] MEDS: Ascorbic Acid 500 mg/5 ml Liq(50 ml) PO SCH (09:24)
[2018-02-17] MEDS: Megestrol Acetate 40 mg/ml Cup PO SCH (09:29)
[2018-02-17] MEDS: Pantoprazole 20 mg EC Tab PO SCH (09:29)
[2018-02-17] MEDS: Enoxaparin 60 mg Syringe SC SCH ×2 (09:30→21:19)
[2018-02-17] MEDS: Saccharomyces Boulardi 250 mg Cap PO SCH ×2 (13:37→17:43)
--- NOTE | 2018-02-17 15:13 | CP.PCM.PN ---
Subjective - Date & Time of Evaluation Date of Evaluation: 02/17/18 Time of Evaluation: 12:30 - Subjective Subjective: F/U DVT Awake, no AD, n/c, daughter at bedside. Objective - Vital Signs/Intake and Output Vital Signs (last 24 hours): Temp Pulse Resp BP Pulse Ox 98.7 F 89 20 114/83 98 02/17/18 12:21 02/17/18 12:21 02/17/18 12:21 02/17/18 12:21 02/17/18 12:21 Intake and Output: 02/17/18 02/17/18 06:59 18:59 Intake Total 1450 Output Total 600 Balance 850 - Medications Medications: Current Medications Acetaminophen (Tylenol 650 Mg Supp) 650 mg ID ONCE PRN PRN Reason: Fever >100.4 F Last Admin: 02/15/18 18:59 Dose: 650 mg Acetaminophen (Tylenol 325mg Tab) 650 mg PO Q4 PRN PRN Reason: Temp >101 Acetaminophen (Tylenol 325mg Tab) 650 mg PO Q4 PRN PRN Reason: Pain, Mild (1-3) Last Admin: 02/16/18 21:20 Dose: 650 mg Acetaminophen (Tylenol 325mg Tab) 325 mg PO Q6 PRN PRN Reason: Fever >100.4 F Ascorbic Acid (Vitamin C Liq) 500 mg PO DAILY ON LICENSE OF [facility] Last Admin: 02/17/18 09:24 Dose: 500 mg Atorvastatin Calcium (Lipitor) 10 mg PO HS ON LICENSE OF [facility] Last Admin: 02/16/18 21:04 Dose: 10 mg Bisacodyl (Dulcolax) 10 mg ID DAILY PRN PRN Reason: No bowel movement x3 days Diphenhydramine HCl (Benadryl) 25 mg IVP Q8 PRN PRN Reason: Rash Last Admin: 02/16/18 21:48 Dose: 25 mg Donepezil HCl (Aricept) 10 mg PO HS ON LICENSE OF [facility] Enalapril Maleate (Vasotec) 5 mg PO DAILY ON LICENSE OF [facility] Last Admin: 02/17/18 09:29 Dose: 5 mg Enoxaparin Sodium (Lovenox) 60 mg SC Q12 ON LICENSE OF [facility]; Protocol Last Admin: 02/17/18 09:30 Dose: 60 mg Epoetin Eric (Procrit) 10,000 unit SC MWF ON LICENSE OF [facility] Ergocalciferol (Drisdol 50,000 Intl Units Cap) 1 cap PO TH ON LICENSE OF [facility] Ferrous Sulfate (Feosol) 325 mg PO BID ON LICENSE OF [facility] Clindamycin Phosphate (Cleocin) 600 mg in 50 mls @ 100 mls/hr IVPB Q8 ON LICENSE OF [facility]; Protocol Piperacillin Sod/Tazobactam (Sod 3.375 gm/ Sodium Chloride) 100 mls @ 100 mls/hr IVPB Q6 ON LICENSE OF [facility]; Protocol Levetiracetam (Keppra) 500 mg PO Q12@0830,2030 ON LICENSE OF [facility] Last Admin: 02/17/18 09:22 Dose: 500 mg Levothyroxine Sodium (Synthroid) 112 mcg PO DAILY@0630 ON LICENSE OF [facility] Last Admin: 02/17/18 07:01 Dose: 112 mcg Magnesium Hydroxide (Milk Of Magnesia) 30 ml PO HS PRN PRN Reason: No bowel movement x 2 days Last Admin: 02/16/18 12:57 Dose: 30 ml Memantine (Namenda) 10 mg PO BID ON LICENSE OF [facility] Pantoprazole Sodium (Protonix Ec Tab) 20 mg PO DAILY ON LICENSE OF [facility] Last Admin: 02/17/18 09:29 Dose: 20 mg Saccharomyces Boulardii (Florastor) 250 mg PO BID ON LICENSE OF [facility] Last Admin: 02/17/18 13:37 Dose: 250 mg - Labs Labs: 02/16/18 08:45 02/16/18 08:45 PT 17.1 Seconds (9.8-13.1) H 02/15/18 16:46 INR 1.5 02/15/18 16:46 - Constitutional Appears: No Acute Distress - Head Exam Head Exam: NORMAL INSPECTION - Eye Exam Eye Exam: PERRL - ENT Exam ENT Exam: Normal Exam - Neck Exam Neck Exam: Normal Inspection - Respiratory Exam Respiratory Exam: NORMAL BREATHING PATTERN - Cardiovascular Exam Cardiovascular Exam: REGULAR RHYTHM - GI/Abdominal Exam GI & Abdominal Exam: Soft, Normal Bowel Sounds - Extremities Exam Extremities Exam: Tenderness (R medial bicep, warmth and redness extending to the anticubital area and R medial forearm.) - Neurological Exam Neurological Exam: Awake, Reflexes Normal Additional comments: Non verbal. - Psychiatric Exam Additional comments: Calm - Skin Skin Exam: Warm Assessment and Plan (1) DVT (deep venous thrombosis) Status: Acute (2) Cellulitis of right upper extremity Status: Acute (3) Dementia Status: Chronic (4) HLD (hyperlipidemia) Status: Chronic (5) HTN (hypertension) Status: Chronic (6) Hx of seizure disorder Status: Chronic (7) Hypothyroid Status: Chronic - Assessment and Plan (Free Text) Plan: U C-S: No growth. Regina MORTON, continue Lovenox, Lipitor, Keppra and rest of Tx.
[2018-02-17] MEDS: Piperacillin/Tazobact 3.375 GM in Sodium Chloride 0.9% 100 ML IVPB SCH ×2 (15:40→21:14)
[2018-02-17] MEDS: DiphenhydrAMINE 50 mg/ml Inj IVP PRN (21:28)
[2018-02-18] MEDS: Clindamycin 600mg/50ml D5W 600 MG/50 ML VIAL IVPB SCH ×3 (00:30→16:31)
[2018-02-18] MEDS: Piperacillin/Tazobact 3.375 GM in Sodium Chloride 0.9% 100 ML IVPB SCH ×3 (03:12→16:32)
[2018-02-18] MEDS: Levothyroxine 112 MCG TAB PO SCH (05:32)
[2018-02-18] MEDS ORDERED: EPOETIN ALFA 10,000 UNIT/ML ML SC SCH (09:00)
[2018-02-18] MEDS: levETIRAcetam 100 mg/ml (5ml) Oral Syringe PO SCH (09:35)
[2018-02-18] MEDS: Saccharomyces Boulardi 250 mg Cap PO SCH ×2 (09:39→16:31)
[2018-02-18] MEDS: Pantoprazole 20 mg EC Tab PO SCH (09:40)
[2018-02-18] MEDS: Enoxaparin 60 mg Syringe SC SCH (09:40)
[2018-02-18] MEDS: Ascorbic Acid 500 mg/5 ml Liq(50 ml) PO SCH (09:41)
[2018-02-18 15:46] VITALS: PULSE 92; RESP 18; TEMP 99.3; O2SAT 98
[2018-02-18 16:23] VITALS: BP 96/61
--- NOTE | 2018-02-18 16:43 | CP.PCM.PN ---
Subjective - Date & Time of Evaluation Date of Evaluation: 02/18/18 Time of Evaluation: 12:30 - Subjective Subjective: F/U DVT Pt awake, able to talk with daughters at bedside, confused. Objective - Vital Signs/Intake and Output Vital Signs (last 24 hours): Temp Pulse Resp BP Pulse Ox 99.3 F 92 H 18 96/61 L 98 02/18/18 16:20 02/18/18 16:20 02/18/18 16:20 02/18/18 16:20 02/18/18 16:20 Intake and Output: 02/18/18 02/18/18 06:59 18:59 Intake Total 250 Output Total 1500 Balance -1250 - Medications Medications: Current Medications Acetaminophen (Tylenol 650 Mg Supp) 650 mg HI ONCE PRN PRN Reason: Fever >100.4 F Last Admin: 02/15/18 18:59 Dose: 650 mg Acetaminophen (Tylenol 325mg Tab) 650 mg PO Q4 PRN PRN Reason: Temp >101 Acetaminophen (Tylenol 325mg Tab) 650 mg PO Q4 PRN PRN Reason: Pain, Mild (1-3) Last Admin: 02/16/18 21:20 Dose: 650 mg Acetaminophen (Tylenol 325mg Tab) 325 mg PO Q6 PRN PRN Reason: Fever >100.4 F Ascorbic Acid (Vitamin C Liq) 500 mg PO DAILY [facility] Last Admin: 02/18/18 09:41 Dose: 500 mg Atorvastatin Calcium (Lipitor) 10 mg PO HS [facility] Last Admin: 02/17/18 21:20 Dose: 10 mg Bisacodyl (Dulcolax) 10 mg HI DAILY PRN PRN Reason: No bowel movement x3 days Diphenhydramine HCl (Benadryl) 25 mg IVP Q8 PRN PRN Reason: Rash Last Admin: 02/17/18 21:28 Dose: 25 mg Donepezil HCl (Aricept) 10 mg PO HS [facility] Last Admin: 02/17/18 21:20 Dose: 10 mg Enalapril Maleate (Vasotec) 5 mg PO DAILY [facility] Last Admin: 02/18/18 09:40 Dose: 5 mg Enoxaparin Sodium (Lovenox) 60 mg SC Q12 [facility]; Protocol Last Admin: 02/18/18 09:40 Dose: 60 mg Epoetin Eric (Procrit) 10,000 unit SC MWF [facility] Last Admin: 02/18/18 13:19 Dose: 10,000 unit Ergocalciferol (Drisdol 50,000 Intl Units Cap) 1 cap PO TH [facility] Ferrous Sulfate (Feosol) 325 mg PO BID [facility] Last Admin: 02/18/18 16:31 Dose: 325 mg Clindamycin Phosphate (Cleocin) 600 mg in 50 mls @ 100 mls/hr IVPB Q8 [facility]; Protocol Last Admin: 02/18/18 16:31 Dose: Not Given Piperacillin Sod/Tazobactam (Sod 3.375 gm/ Sodium Chloride) 100 mls @ 100 mls/hr IVPB Q6 [facility]; Protocol Last Admin: 02/18/18 16:32 Dose: Not Given Levetiracetam (Keppra) 500 mg PO Q12@0830,2030 [facility] Last Admin: 02/18/18 09:35 Dose: 500 mg Levothyroxine Sodium (Synthroid) 112 mcg PO DAILY@0630 [facility] Last Admin: 02/18/18 05:32 Dose: 112 mcg Magnesium Hydroxide (Milk Of Magnesia) 30 ml PO HS PRN PRN Reason: No bowel movement x 2 days Last Admin: 02/16/18 12:57 Dose: 30 ml Memantine (Namenda) 10 mg PO BID [facility] Last Admin: 02/18/18 16:32 Dose: 10 mg Pantoprazole Sodium (Protonix Ec Tab) 20 mg PO DAILY [facility] Last Admin: 02/18/18 09:40 Dose: 20 mg Saccharomyces Boulardii (Florastor) 250 mg PO BID [facility] Last Admin: 02/18/18 16:31 Dose: 250 mg - Labs Labs: 02/16/18 08:45 02/16/18 08:45 PT 17.1 Seconds (9.8-13.1) H 02/15/18 16:46 INR 1.5 02/15/18 16:46 - Constitutional Appears: No Acute Distress - Head Exam Head Exam: NORMAL INSPECTION - Eye Exam Eye Exam: PERRL - ENT Exam ENT Exam: Normal Exam - Neck Exam Neck Exam: Normal Inspection - Respiratory Exam Respiratory Exam: NORMAL BREATHING PATTERN - Cardiovascular Exam Cardiovascular Exam: REGULAR RHYTHM - GI/Abdominal Exam GI & Abdominal Exam: Soft, Normal Bowel Sounds - Extremities Exam Additional comments: R arm swelling, no redness or warmth - Neurological Exam Neurological Exam: Awake, Reflexes Normal Additional comments: Non verbal. - Skin Skin Exam: Warm Assessment and Plan (1) DVT (deep venous thrombosis) Status: Acute (2) Cellulitis of right upper extremity Status: Acute (3) Dementia Status: Chronic (4) HLD (hyperlipidemia) Status: Chronic (5) HTN (hypertension) Status: Chronic (6) Hx of seizure disorder Status: Chronic (7) Hypothyroid Status: Chronic
--- NOTE | 2018-02-18 17:55 | CP.PCM.DIS ---
Provider - Provider Date of Admission: 02/15/18 18:06 Attending physician: Richard Cobb MD Time Spent in preparation of Discharge (in minutes): 35 Diagnosis - Discharge Diagnosis (1) DVT (deep venous thrombosis) Status: Acute Priority: High Comment: complication of PICC line (2) Cellulitis of right upper extremity Status: Acute Comment: complication of PICC line (3) Dementia Status: Chronic Priority: High (4) HLD (hyperlipidemia) Status: Chronic Priority: Medium (5) HTN (hypertension) Status: Chronic Priority: Medium (6) Hx of seizure disorder Status: Chronic Priority: Medium (7) Hypothyroid Status: Chronic Priority: Medium Hospital Course - Lab Results Lab Results: Micro Results 02/15/18 17:34 Blood-Venous Blood Culture - Preliminary NO GROWTH AFTER 3 DAYS 02/15/18 16:46 Blood-Venous Blood Culture - Preliminary NO GROWTH AFTER 3 DAYS 02/16/18 02:00 Urine,Clean Catch Urine Culture - Final No Growth (<1,000 CFU/ML) Most Recent Lab Values WBC 8.5 K/uL (4.8-10.8) 02/16/18 08:45 RBC 4.31 Mil/uL (3.80-5.20) 02/16/18 08:45 Hgb 9.6 g/dL (12.0-16.0) L 02/16/18 08:45 Hct 31.5 % (34.0-47.0) L 02/16/18 08:45 MCV 73.0 fl (81.0-99.0) L 02/16/18 08:45 MCH 22.2 pg (27.0-31.0) L 02/16/18 08:45 MCHC 30.5 g/dL (33.0-37.0) L 02/16/18 08:45 RDW 24.4 % (11.5-14.5) H 02/16/18 08:45 Plt Count 417 K/uL (130-400) H 02/16/18 08:45 MPV 7.6 fl (7.2-11.7) 02/15/18 16:42 Neut % (Auto) 71.2 % (50.0-75.0) 02/15/18 16:42 Lymph % (Auto) 14.9 % (20.0-40.0) L 02/15/18 16:42 [place] % (Auto) 10.3 % (0.0-10.0) H 02/15/18 16:42 Eos % (Auto) 2.8 % (0.0-4.0) 02/15/18 16:42 Baso % (Auto) 0.8 % (0.0-2.0) 02/15/18 16:42 Neut # (Auto) 11.6 K/uL (1.8-7.0) H 02/15/18 16:42 Lymph # (Auto) 2.4 K/uL (1.0-4.3) 02/15/18 16:42 [place] # (Auto) 1.7 K/uL (0.0-0.8) H 02/15/18 16:42 Eos # (Auto) 0.5 K/uL (0.0-0.7) 02/15/18 16:42 Baso # (Auto) 0.1 K/uL (0.0-0.2) 02/15/18 16:42 PT 17.1 Seconds (9.8-13.1) H 02/15/18 16:46 INR 1.5 02/15/18 16:46 pO2 25 mm/Hg (30-55) L 02/15/18 16:51 VBG pH 7.39 (7.32-7.43) 02/15/18 16:51 VBG pCO2 39 mmHg (40-60) L 02/15/18 16:51 VBG HCO3 22.6 mmol/L 02/15/18 16:51 VBG Total CO2 24.8 mmol/L (22-28) 02/15/18 16:51 VBG O2 Sat (Calc) 41.1 % (40-65) 02/15/18 16:51 VBG Base Excess -1.2 mmol/L (0.0-2.0) L 02/15/18 16:51 VBG Potassium 3.9 mmol/L (3.6-5.2) 02/15/18 16:51 Sodium 134.0 mmol/L (132-148) 02/15/18 16:51 Chloride 102.0 mmol/L (98-107) 02/15/18 16:51 Glucose 83 mg/dL (65-105) 02/15/18 16:51 Lactate 2.5 mmol/L (0.7-2.1) H 02/15/18 16:51 FiO2 21.0 % 02/15/18 16:51 Blood Gas Comments Lac=2.5 02/15/18 16:51 Crit Value Called To vira Mcdaniels 02/15/18 16:51 Crit Value Called By 22 02/15/18 16:51 Crit Value Read Back Y 02/15/18 16:51 Blood Gas Notified Time 1657 02/15/18 16:51 Sodium 142 mmol/l (132-148) 02/16/18 08:45 Potassium 3.8 MMOL/L (3.6-5.0) 02/16/18 08:45 Chloride 112 mmol/L (98-107) H 02/16/18 08:45 Carbon Dioxide 20 mmol/L (22-30) L 02/16/18 08:45 Anion Gap 14 (10-20) 02/16/18 08:45 BUN 12 mg/dl (7-17) 02/16/18 08:45 Creatinine 0.6 mg/dl (0.7-1.2) L 02/16/18 08:45 Est GFR ( Amer) > 60 02/16/18 08:45 Est GFR (Non-Af Amer) > 60 02/16/18 08:45 Random Glucose 110 mg/dL (65-105) H 02/16/18 08:45 Calcium 8.9 mg/dL (8.4-10.2) 02/16/18 08:45 Total Bilirubin 0.5 mg/dl (0.2-1.3) 02/16/18 08:45 AST 40 U/L (14-36) H 02/16/18 08:45 ALT 30 U/L (9-52) 02/16/18 08:45 Alkaline Phosphatase 67 U/L (38-126) 02/16/18 08:45 Total Protein 6.7 G/DL (6.3-8.2) 02/16/18 08:45 Albumin 3.0 g/dL (3.5-5.0) L 02/16/18 08:45 Globulin 3.6 gm/dL (2.2-3.9) 02/16/18 08:45 Albumin/Globulin Ratio 0.8 (1.0-2.1) L 02/16/18 08:45 Triglycerides 45 mg/DL (0-149) 02/16/18 08:45 Cholesterol 94 mg/dL (0-199) 12 08:45 LDL Cholesterol Direct 54 mg/dL (0-129) 02/16/18 08:45 HDL Cholesterol 34 MG/DL (30-70) 02/16/18 08:45 Thyroxine (T4) 7.32 ug/dl (5.5-11.0) 02/16/18 08:45 TSH 3rd Generation 0.41 mIU/ML (0.46-4.68) L 02/16/18 08:45 Venous Blood Potassium 3.9 mmol/L (3.6-5.2) 02/15/18 16:51 Urine Color Yellow (YELLOW) 02/16/18 02:00 Urine Clarity Cloudy (Clear) 02/16/18 02:00 Urine pH 6.0 (5.0-8.0) 02/16/18 02:00 Ur Specific [place] 1.009 (1.003-1.030) 02/16/18 02:00 Urine Protein Negative mg/dL (NEGATIVE) 02/16/18 02:00 Urine Glucose (UA) Neg mg/dL (NEGATIVE) 02/16/18 02:00 Urine Ketones Negative mg/dL (NEGATIVE) 02/16/18 02:00 Urine Blood Negative (NEGATIVE) 02/16/18 02:00 Urine Nitrate Negative (NEGATIVE) 02/16/18 02:00 Urine Bilirubin Negative (NEGATIVE) 02/16/18 02:00 Urine Urobilinogen 0.2-1.0 mg/dL (0.2-1.0) 02/16/18 02:00 Ur Leukocyte Esterase Large Kam/uL (Negative) 02/16/18 02:00 Urine RBC (Auto) 4 /hpf (0-3) H 02/16/18 02:00 Urine Microscopic WBC 104 /hpf (0-5) H 02/16/18 02:00 Ur Squamous Epith Cells 3 /hpf (0-5) 02/16/18 02:00 Urine Bacteria Rare (<OCC) 02/16/18 02:00 - Date & Time of H&P Date of H&P: 02/16/18 Time of H&P: 15:20 Discharge Exam - Head Exam Head Exam: NORMAL INSPECTION - Eye Exam Eye Exam: PERRL - ENT Exam ENT Exam: Normal Exam - Neck Exam Neck exam: Normal Inspection - Respiratory Exam Respiratory Exam: NORMAL BREATHING PATTERN - Cardiovascular Exam Cardiovascular Exam: REGULAR RHYTHM - GI/Abdominal Exam GI & Abdominal Exam: Normal Bowel Sounds, Soft - Extremities Exam Extremities exam: tenderness (R medial bicep, warmth and redness extending to the anticubital area and R medial forearm) - Neurological Exam Neurological exam: Reflexes Normal Additional comments: Awake, non verbal - Psychiatric Exam Additional comments: Calm - Skin Skin Exam: Warm Discharge Plan - Discharge Medications Prescriptions: Apixaban [Eliquis] 10 mg PO BID #60 tab Cephalexin [Keflex] 500 mg PO Q8 #24 capsule - Follow Up Plan Condition: FAIR Disposition: TRANSF TO SNF Instructions: Deep Vein Thrombosis (Blood Clots in the Legs) (DC), Sepsis, Adult (DC), Cellulitis (Skin Infection), Adult (DC) Additional Instructions: discharge pt to [facility] Referrals: Ricahrd Cobb MD [Family Provider] -
[2018-02-21] MEDS ORDERED: Ergocalciferol 50,000 Intl Units Cap PO SCH (19:58)
--- NOTE | 2018-02-22 13:55 | PQF ---
PROVIDER RESPONSE TEXT: Sepsis was ruled out REVIEWER QUERY TEXT: Conflicting Documentation Clarification 2 (two) queries as follows: 1. A single mention of Sepsis is documented in the ER record. Please document if the condition is: 2. -- If Confirmed and current: etiology if known i.e. due to PICC line or Cellulitus or unable to determine the etiology or other etiology etc. -- Confirmed, treated and resolved OR-- Ruled out OR -- Other, please specify CBC: 16.3-.8.5 VBG Lactate: 2.5 Temp: 100.1->98.9->101.1 Pulse:98->98->100->100-.97 ER: Clinical Impression :Sepsis, Cellulitis, DVT H and P: brought to ER [facility] on 02/15/18 via EMS to be evaluated PICC line RUE removed day PT A associated to swelling/redness in the area. Assessment : (1) DVT (deep venous thrombosis) Status: Acute Priority: High Comment: RUE (2) Cellulitis of right upper extremity Status: Acute (3) Dementia Status: Chronic (4) HLD (hyperlipidemia) Status: Chronic (5) HTN (hypertension) Status: Chronic (6) Hx of seizure disorder Status: Chronic (7) Hypothyroid Status: Chronic - Assessment: F/U U C-S, continue Clindamicyn, Zosyn, Lovenox, Ferrous Sulfate, Keppra, Lipitor, Proc rit, Synthroid and rest of Tx. The patient's Clinical Indicators include: -- Query created by: Wendy Moreno on 02/18/2018 11:14 AM Electronically signed by: Richard Cobb MD 02/22/2018 1:51 PM
== END 2018-02-18 17:30 | DRG 300 ==
LOC: H.ER 16:10 → H.ERHOLD 18:06 → H.TEL 20:52
PROVIDERS: ADMIT Internal Medicine Pulmonary Disease; ATTEND Internal Medicine Pulmonary Disease
DX: I82.621 Acute embolism and thrombosis of deep veins of right upper extremity (principal); L03.113 Cellulitis of right upper limb; I82.890 Acute embolism and thrombosis of other specified veins; G30.9 Alzheimer's disease, unspecified; F02.80 Dementia in other diseases classified elsewhere, unspecified severity, without behavioral disturbance, psychotic disturbance, mood disturbance, and anxiety; G40.909 Epilepsy, unspecified, not intractable, without status epilepticus; E03.9 Hypothyroidism, unspecified; E78.00 Pure hypercholesterolemia, unspecified; E78.5 Hyperlipidemia, unspecified; I10 Essential (primary) hypertension; Z79.890 Hormone replacement therapy

== ENCOUNTER 2018-03-21 10:57 | Inpatient (IN) | payer MEDICARE, MEDICAID ==
[2018-03-21] MEDS ORDERED: Sodium Chloride 0.9% 1,000 ML IV STA (12:01)
--- NOTE | 2018-03-21 12:16 | ED PDOC ---
HPI: Fever Time Seen by Provider: 03/21/18 11:29 Fever Onset Was: 03/18/18 Additional Comments: 73 year old female with a past medical history of DVT, Alzheimers disease, dementia, hypothyroidism, seizures, and hypertension who is a care home resident presenting to the ED with daughter for evaluation of fever ongoing for 3 days and vomiting onset 1 day ago. Patient is non-verbal at baseline so history is per daughter. as per daughter who is historian Patient had an x-ray and EKG at the care home which was negative. Blood work done a few days ago showed elevated white blood cells. Of note, patient is a resident at [facility]. PMD: Dr. Cobb Past Medical History Reviewed: Historical Data, Nursing Documentation, Vital Signs Vital Signs: Last Vital Signs Temp 100.8 F H 03/21/18 11:24 Pulse 108 H 03/21/18 11:01 Resp 18 03/21/18 11:01 BP 106/62 03/21/18 11:01 Pulse Ox 98 03/21/18 11:03 - Medical History PMH: Alzheimer's Disease, Dementia, HTN, Hypercholesterolemia, Hypothyroidism, Seizures Denies: HIV, Chronic Kidney Disease - Surgical History Other surgeries: PICC Line - Family History Family History: States: Unknown Family Hx - Social History Current smoker - smoking cessation education provided: No Ex-Smoker (has not smoked in the last 12 months): Yes Alcohol: None Drugs: Denies - Home Medications Home Medications: Ambulatory Orders Medication Instructions Recorded RX: Atorvastatin [Lipitor] 10 mg PO HS 03/17/17 RX: Enalapril Maleate [Vasotec] 5 mg PO DAILY 03/17/17 RX: Memantine HCl/Donepezil HCl 1 cap PO HS 03/17/17 [Namzaric 28 mg-10 mg Capsule] RX: Acetaminophen [Tylenol 325mg 650 mg PO Q4 PRN 01/28/18 tab] RX: Acetaminophen [Tylenol 325mg 650 mg PO Q4 PRN 01/28/18 tab] RX: Ascorbic Acid [Vitamin C Liq] 5 ml PO DAILY 01/28/18 RX: Bisacodyl [Dulcolax] 10 mg [place] DAILY PRN 01/28/18 RX: Epoetin Eric [Procrit] 10,000 unit SC MW 01/28/18 RX: Ergocalciferol (Vitamin D2) 50,000 unit PO TH 01/28/18 [Vitamin D2] RX: Levothyroxine [Synthroid] 112 mcg PO DAILY 01/28/18 RX: Magnesium Hydroxide [Milk Of 30 ml PO HS PRN 01/28/18 Magnesia] RX: Megestrol Acetate [Megace] 10 ml PO BID 01/28/18 RX: Omeprazole 20 mg PO DAILY 01/28/18 RX: Ferrous Sulfate [Ferosul] 7.4 ml PO BID 02/15/18 RX: Saccharomyces Boulardi 250 mg PO BID 02/15/18 [Florastor] Apixaban [Eliquis] 5 mg PO BID 03/21/18 levETIRAcetam [Keppra] 500 mg PO Q12 03/21/18 - Allergies Allergies/Adverse Reactions: Allergies Allergy/AdvReac Type Severity Reaction Status Date / Time egg AdvReac DIARRHEA Verified 03/21/18 11:03 milk AdvReac DIARRHEA Verified 03/21/18 11:03 Review of Systems ROS Statement: Except As Marked, All Systems Reviewed And Found Negative Constitutional: Positive for: Fever Gastrointestinal: Positive for: Vomiting Physical Exam - Reviewed Nursing Documentation Reviewed: Yes Vital Signs Reviewed: Yes - Physical Exam Appears: Positive for: Non-toxic, No Acute Distress (contracted, unresponsive and nonverbal - baseline: wearing diaper) Head Exam: Positive for: ATRAUMATIC, NORMAL INSPECTION, NORMOCEPHALIC Skin: Positive for: Normal Color, Warm, DRY Eye Exam: Positive for: EOMI, Normal appearance, PERRL ENT: Positive for: Normal ENT Inspection Neck: Positive for: Normal, Painless ROM Cardiovascular/Chest: Positive for: Regular Rate, Rhythm. Negative for: Murmur Respiratory: Positive for: Normal Breath Sounds. Negative for: Respiratory Distress Gastrointestinal/Abdominal: Positive for: Normal Exam, Soft. Negative for: Tenderness Back: Positive for: Normal Inspection Extremity: Positive for: Normal ROM, Swelling (right arm: antecubital area edema- due to hx of clot, according to daughter it is chronically swollen like that. ). Negative for: Deformity Neurologic/Psych: Positive for: Oriented. Negative for: Alert (somnolent), Motor/Sensory Deficits - Laboratory Results Result Diagrams: 03/25/18 10:55 03/25/18 10:55 - ECG O2 Sat by Pulse Oximetry: 98 (RA) Pulse Ox Interpretation: Normal Medical Decision Making Medical Decision Making: Time: 11:48 Impression: fever, Rule out UTI, rule out pneumonia Plan: --VBG Shock Panel --EKG --CMP --Magnesium --Phosphorous --CBC --Coags --Chest X-Ray --Tylenol 650 mg [place] --Blood Culture --urine Culture --Urinalysis Lactic acid is 1.8. White count is 25. Time: 1258 Chest x-ray: FINDINGS: LUNGS: Left hemidiaphragm is asymmetrically elevated as before. The bronchovascular markings here are increased and blend with vague bandlike atelectatic changes. Interval increase left pleural effusion very small suggested. RF no interval right lung pathology seen. PLEURA: Small left pleural effusion-an interval change. No more significant appearing pleural effusions noted. No pneumothorax appreciated. CARDIOVASCULAR: There is absence of aortic atherosclerotic calcification on x-ray. Probable top-normal heart size. No significant appearing pulmonary venous congestion. OSSEOUS STRUCTURES: No significant abnormalities. VISUALIZED UPPER ABDOMEN: Normal. OTHER FINDINGS: None. IMPRESSION: Interval left minimal basal subsegmental atelectasis with interval small left pleural effusion. A concomitant small patchy developing infiltrate here also needs to be considered. The asymmetrically elevated left hemidiaphragm is as before. Clinical correlation and follow-up recommended. Time: 1358 --Patient to be admitted to Dr. Cobb for early pneumonia. Paged Dr. Cobb to discuss case. abx ordered. iv fluids as well. antiemetics. Dr. Cobb accepted patient. Scribe Attestation: Documented by Isabell Curran, acting as a scribe for Balbir Todd MD. Provider Scribe Attestation: All medical record entries made by the Scribe were at my direction and personally dictated by me. I have reviewed the chart and agree that the record accurately reflects my personal performance of the history, physical exam, medical decision making, and the department course for this patient. I have also personally directed, reviewed, and agree with the discharge instructions and disposition. Disposition - Clinical Impression Clinical Impression: Fever in adult, PNA (pneumonia), Fever, Hx of deep venous thrombosis - Patient ED Disposition Is Patient to be Admitted: Yes - Disposition Disposition Time: 13:00 Condition: SERIOUS
[2018-03-21 12:28] LABS: VENOUS BLOOD GAS BASE EXCESS -1.3 mmol/L (0.0-2.0); VENOUS BLOOD GAS PCO2 35 mmHg (40-60); VENOUS BLOOD GAS PO2 46 mm/Hg (30-55); VENOUS BLOOD PH 7.42 (7.32-7.43)
[2018-03-21 12:36] LABS: SQUAMOUS EPITHIAL < 1 /hpf (0-5); URINE BACTERIA RARE (<OCC); URINE BILIRUBIN NEGATIVE (NEGATIVE); URINE BLOOD SMALL (NEGATIVE); URINE CLARITY SLIGHTY-CLOUDY (Clear); URINE COLOR AMBER (YELLOW); URINE GLUCOSE (UA) NEG (NEGATIVE); URINE LEUKOCYTE ESTERASE NEG Leu/uL (Negative); URINE PROTEIN 30 mg/dL (NEGATIVE)
[2018-03-21 12:40] LABS: BASO # 0.1 K/uL (0.0-0.2); BASO % 0.4 % (0.0-2.0); EOS % 0.1 % (0.0-4.0); HEMOGLOBIN 11.4 g/dL (12.0-16.0); LYMPH % 15.8 % (20.0-40.0); MEAN CELL VOLUME 74.2 fl (81.0-99.0); MEAN CORPUSCULAR HEMOGLOBIN 22.5 pg (27.0-31.0); MEAN CORPUSCULAR HGB CONC 30.4 g/dL (33.0-37.0); MONO # 2.4 K/uL (0.0-0.8); MONO % 9.5 % (0.0-10.0); NEUT # 18.6 K/uL (1.8-7.0); NEUT % 74.2 % (50.0-75.0); RBC 5.05 Mil/uL (3.80-5.20); RED CELL DISTRIBUTION WIDTH 26.1 % (11.5-14.5); WHITE BLOOD COUNT 25.1 K/uL (4.8-10.8)
[2018-03-21 12:42] LABS: INR 1.5; PROTHROMBIN TIME 17.1 Seconds (9.8-13.1)
[2018-03-21 12:44] LABS: ALBUMIN 3.6 g/dL (3.5-5.0); ALT/SGPT 24 U/L (9-52); AST/SGOT 32 U/L (14-36); BLOOD UREA NITROGEN 18 mg/dl (7-17); CALCIUM 9.1 mg/dL (8.4-10.2); GFR NON-AFRICAN AMERICAN > 60; PARTIAL THROMBOPLASTIN TIME 36.6 Seconds (25.6-37.1)
[2018-03-21] MEDS ORDERED: Piperacillin/Tazobact 4.5 GM in Sodium Chloride 0.9% 100 ML IVPB STA (12:47)
--- NOTE | 2018-03-21 13:01 | RAD ---
Date of service: 03/21/2018 HISTORY: Sepsis Patient COMPARISON: 01/28/2019 FINDINGS: LUNGS: Left hemidiaphragm is asymmetrically elevated as before. The bronchovascular markings here are increased and blend with vague bandlike atelectatic changes. Interval increase left pleural effusion very small suggested. RF no interval right lung pathology seen. PLEURA: Small left pleural effusion-an interval change. No more significant appearing pleural effusions noted. No pneumothorax appreciated. CARDIOVASCULAR: There is absence of aortic atherosclerotic calcification on x-ray. Probable top-normal heart size. No significant appearing pulmonary venous congestion. OSSEOUS STRUCTURES: No significant abnormalities. VISUALIZED UPPER ABDOMEN: Normal. OTHER FINDINGS: None. IMPRESSION: Interval left minimal basal subsegmental atelectasis with interval small left pleural effusion. A concomitant small patchy developing infiltrate here also needs to be considered. The asymmetrically elevated left hemidiaphragm is as before. Clinical correlation and follow-up recommended.
[2018-03-21] MEDS ORDERED: Azithromycin 500 MG in Sodium Chloride 0.9% 250 ML IVPB STA (14:20)
[2018-03-21] MEDS ORDERED: Clindamycin 600mg/50ml D5W 600 MG/50 ML VIAL IVPB STA (14:21)
[2018-03-21] MEDS ORDERED: Azithromycin 500 MG IV IVPB ONE (15:11)
[2018-03-21 15:46] LABS: VENOUS BLOOD GAS BASE EXCESS -1.7 mmol/L (0.0-2.0); VENOUS BLOOD GAS PCO2 34 mmHg (40-60); VENOUS BLOOD GAS PO2 38 mm/Hg (30-55); VENOUS BLOOD PH 7.42 (7.32-7.43)
[2018-03-21] MEDS ORDERED: levETIRAcetam 500 MG in Sodium Chloride 0.9% 100 ML IVPB ONE (20:00)
--- NOTE | 2018-03-21 20:38 | CARD ---
APPROVED REPORT Date of service: 03/21/2018 EKG Measurement Heart [id number] <Conclusion> Sinus tachycardia Possible Left atrial enlargement Borderline ECG
[2018-03-21] MEDS: Sodium Chloride 0.9% 1,000 ML IV SCH (23:08)
[2018-03-22] MEDS ORDERED: Enoxaparin 40 mg Syringe SC STA (00:49)
[2018-03-22] MEDS: Piperacillin/Tazobact 3.375 GM in Sodium Chloride 0.9% 100 ML IVPB SCH ×4 (03:59→22:54)
[2018-03-22 05:44] LABS: INR 1.6; PROTHROMBIN TIME 17.8 Seconds (9.8-13.1)
[2018-03-22 05:46] LABS: PARTIAL THROMBOPLASTIN TIME 37.8 Seconds (25.6-37.1)
[2018-03-22 05:48] LABS: HEMOGLOBIN 9.8 g/dL (12.0-16.0); MEAN CELL VOLUME 73.2 fl (81.0-99.0); MEAN CORPUSCULAR HEMOGLOBIN 23.1 pg (27.0-31.0); MEAN CORPUSCULAR HGB CONC 31.6 g/dL (33.0-37.0); RBC 4.24 Mil/uL (3.80-5.20); WHITE BLOOD COUNT 19.7 K/uL (4.8-10.8)
[2018-03-22 05:54] LABS: ALB/GLOB RATIO 0.9 (1.0-2.1); ALBUMIN 2.9 g/dL (3.5-5.0); ALT/SGPT 30 U/L (9-52); AST/SGOT 18 U/L (14-36); BLOOD UREA NITROGEN 19 mg/dl (7-17); CALCIUM 8.8 mg/dL (8.4-10.2); GFR NON-AFRICAN AMERICAN > 60; HDL CHOLESTEROL 27 MG/DL (30-70)
[2018-03-22 06:03] LABS: LDL CHOLESTEROL 40 mg/dL (0-129)
[2018-03-22 06:09] LABS: T4 5.85 ug/dl (5.5-11.0)
[2018-03-22] MEDS: Sodium Chloride 0.9% 1,000 ML IV SCH ×2 (08:44→17:00)
[2018-03-22] MEDS: EPOETIN ALFA 10,000 UNIT/ML ML SC SCH (08:44)
[2018-03-22] MEDS: levETIRAcetam 500 MG in Sodium Chloride 0.9% 100 ML IVPB SCH ×2 (08:45→20:45)
[2018-03-22] MEDS ORDERED: Enoxaparin 40 mg Syringe SC SCH (09:00)
[2018-03-22] MEDS ORDERED: Clindamycin 600mg/50ml D5W 600 MG/50 ML VIAL IVPB SCH (09:00)
[2018-03-22] MEDS: Azithromycin 500 MG in Sodium Chloride 0.9% 250 ML IVPB SCH (11:14)
[2018-03-22] MEDS ORDERED: Sodium Chloride 3% for Inhalation 4 ML VIAL.NEB IH PRN (13:49)
--- NOTE | 2018-03-22 14:44 | CP.PCM.HP ---
History of Present Illness - History of Present Illness History of Present Illness: CC: Fever. 73 y/o F, PMHx Alzhiemers/Dementia, Hx of DVT R Upper arm and ESBL UTI on February 2018, HTN, Hypothyroidism, Hx Seizure. Pt was brought from [facility] to ER [facility] via EMS to be evaluated for fever, onset 2 days SET UP [employer], increased on DOA associated to vomiting x1, nausea and WBC's elevated while in the NH. As per daughter, Pt with no improvement. In the ER TMAx 100.6, WBC 25.1 Worsening symptoms: Lethargic, cough, non productive/bloody, non verbal. CXR showing PNA. Aggravated symptom: Movements. No: CP, syncope, diarrhea, urinary symptoms, sick contact. EKG: Sinus tachycardia. CXR: L basal subsegmental atelectasis, small L pleural effusion, PNA. Present on Admission - Present on Admission Any Indicators Present on Admission: Yes History of DVT/PE: Yes Review of Systems - Review of Systems Systems not reviewed;Unavailable: Acuity of Condition, Dementia Past Patient History - Past Medical History & Family History Past Medical History?: Yes Pertinent Family History: Unknown - Past Social History Smoking Status: Former Smoker Alcohol: None Drugs: Denies Home Situation {Lives}: Care Home - CARDIAC Hx Cardiac Disorders: Yes Hx Hypercholesterolemia: Yes Hx Hypertension: Yes - PULMONARY Hx Respiratory Disorders: No - NEUROLOGICAL Hx Neurological Disorder: Yes Hx Alzheimer's Disease: Yes Hx Dementia: Yes Hx Seizures: Yes - HEENT Hx HEENT Problems: No - RENAL Hx Chronic Kidney Disease: No - ENDOCRINE/METABOLIC Hx Endocrine Disorders: Yes Hx Hypothyroidism: Yes - HEMATOLOGICAL/ONCOLOGICAL Hx Blood Disorders: Yes (DVT R upper arm) Hx Human Immunodeficiency Virus (HIV): No - INTEGUMENTARY Hx Dermatological Problems: No - MUSCULOSKELETAL/RHEUMATOLOGICAL Hx Musculoskeletal Disorders: Yes Hx Falls: Yes - GASTROINTESTINAL Hx Gastrointestinal Disorders: No - GENITOURINARY/GYNECOLOGICAL Hx Genitourinary Disorders: Yes Hx Urinary Tract Infection: Yes - PSYCHIATRIC Hx Psychophysiologic Disorder: No Hx Substance Use: No - SURGICAL HISTORY Hx Surgeries: Yes Other/Comment: PICC line - ANESTHESIA Hx Anesthesia: Yes Hx Anesthesia Reactions: No Hx Malignant Hyperthermia: No Meds Allergies/Adverse Reactions: Allergies Allergy/AdvReac Type Severity Reaction Status Date / Time vancomycin Allergy RASH Verified 03/21/18 11:03 egg AdvReac DIARRHEA Verified 03/21/18 11:03 milk AdvReac DIARRHEA Verified 03/21/18 11:03 Physical Exam - Constitutional Appears: No Acute Distress, Other (Non verbal, Lethargic) - Head Exam Head Exam: NORMAL INSPECTION - Eye Exam Eye Exam: PERRL - ENT Exam ENT Exam: Normal Exam - Neck Exam Neck exam: Positive for: Normal Inspection - Respiratory Exam Respiratory Exam: Decreased Breath Sounds (at bases) - Cardiovascular Exam Cardiovascular Exam: REGULAR RHYTHM - GI/Abdominal Exam GI & Abdominal Exam: Normal Bowel Sounds, Soft, Tenderness (Minimal on palpation epigastric region) - Extremities Exam Additional comments: Edema MELIDA - Back Exam Back exam: NORMAL INSPECTION - Neurological Exam Neurological exam: Reflexes Normal Additional comments: Lethargic, unable to follow commands, responsive to verbal/tactile stimuli by open eyes. - Psychiatric Exam Additional comments: Non verbal - Skin Skin Exam: Normal Color, Warm Results - Vital Signs Recent Vital Signs: Last Vital Signs Temp 98.2 F 03/22/18 11:48 Pulse 93 H 03/22/18 11:48 Resp 20 03/22/18 11:48 BP 123/75 03/22/18 11:48 Pulse Ox 100 03/22/18 11:48 reviewed J.PShraddha - Labs Result Diagrams: 03/23/18 04:00 03/22/18 04:25 Labs: Laboratory Results - last 24 hr 03/21/18 03/22/18 03/22/18 15:43 04:25 04:25 WBC 19.7 H RBC 4.24 Hgb 9.8 L Hct 31.1 L MCV 73.2 L MCH 23.1 L MCHC 31.6 L RDW 25.0 H Plt Count 427 H PT INR APTT pO2 38 VBG pH 7.42 VBG pCO2 34 L VBG HCO3 23.0 VBG Total CO2 23.1 VBG O2 Sat (Calc) 69.3 H VBG Base Excess -1.7 L VBG Potassium 3.9 Sodium 136.0 141 Chloride 105.0 111 H Glucose 101 Lactate 1.8 FiO2 21.0 Potassium 3.7 Carbon Dioxide 21 L Anion Gap 13 BUN 19 H Creatinine 0.9 Est GFR ( Amer) > 60 Est GFR (Non-Af Amer) > 60 Random Glucose 100 Calcium 8.8 Total Bilirubin 0.7 AST 18 ALT 30 Alkaline Phosphatase 74 Total Protein 6.1 L Albumin 2.9 L Globulin 3.3 Albumin/Globulin Ratio 0.9 L Triglycerides 72 D Cholesterol 75 LDL Cholesterol Direct 40 HDL Cholesterol 27 L Thyroxine (T4) 5.85 TSH 3rd Generation 1.20 Venous Blood Potassium 3.9 03/22/18 04:25 WBC RBC Hgb Hct MCV MCH MCHC RDW Plt Count PT 17.8 H INR 1.6 APTT 37.8 H pO2 VBG pH VBG pCO2 VBG HCO3 VBG Total CO2 VBG O2 Sat (Calc) VBG Base Excess VBG Potassium Sodium Chloride Glucose Lactate FiO2 Potassium Carbon Dioxide Anion Gap BUN Creatinine Est GFR ( Amer) Est GFR (Non-Af Amer) Random Glucose Calcium Total Bilirubin AST ALT Alkaline Phosphatase Total Protein Albumin Globulin Albumin/Globulin Ratio Triglycerides Cholesterol LDL Cholesterol Direct HDL Cholesterol Thyroxine (T4) TSH 3rd Generation Venous Blood Potassium reviewed J.P. - EKG Data EKG comments: reviewed J.P - Imaging and Cardiology Chest x-ray Status: Report reviewed by me (J.P.) Assessment & Plan (1) PNA (pneumonia) Status: Acute Priority: High (2) Fever Status: Acute Priority: High (3) Pleural effusion Status: Acute Priority: High (4) Anemia Status: Acute Priority: High (5) Dementia Status: Chronic Priority: High (6) HTN (hypertension) Status: Chronic Priority: Medium (7) Hx of seizure disorder Status: Chronic Priority: Medium (8) Hypothyroid Status: Chronic Priority: Medium (9) Hx of deep venous thrombosis Status: Chronic Priority: Medium - Assessment and Plan (Free Text) Plan: Continue O2 NC, F/U CT Chest, Echo, Blood C-S, Sputum C-S, continue current abx coverage, Procrit and rest of Tx. PT, OT, Speech and Swallow eval. ID consult. - Date & Time Date: 03/22/18 Time: 11:40
--- NOTE | 2018-03-22 16:37 | CP.PCM.CON ---
History of Present Illness - History of Present Illness History of Present Illness: Infectious Disease Consultation Note- Asked to see this patient at the request of for fever and positive blood cx. HPI- History obtained from patient's 2 daughters who are at her bedside as pt. is nonverbal. Patient is a 73 year old female [facility] resident with PMH of alzheimers dementia, Seizures, hypothyroidism, HTN who is admitted fro evaluation of fever, lethargy . Pt. also had h/o 2 previous recent hospitalizations here for ESBL e.coli UTI infection and RIght upper exteremity DVT that were both treated. per pt's daughter she is typically nonverbal but more alert than her usual states and also she was having fevers past 2 days at the [facility]. she has had some minor cough . the CXR at [facility] was reportedly negative but had high wbc. as per pt's daughter they did not notice any foul smelling urine or any diarrhea but she did have nausea on admission. Pt's daughter also mentions that during last admission she also had high wbc count and was even seen by box printer for this but malignancy was ruled out as per pt's daughter . she also mentions that pt. had right arm picc line for Iron infusions and that a rm developed DVT and pic was removed and she was treated for the dvt. Also upon further questioning pt's daughter explains that last admission her mother was given 1 dose of vancomyicn and within 20 minutes her face turned red but there was no rash nad no hives or any trouble with breathing. red face resolved immediately after stopping the vanco. Review of Systems - Review of Systems Review of Systems: ROS- unable to obtain as pt. is nonverbl but she moan when she is touched anywhere on her body and her daughter states she has noticed the same, had fever on admission, no diarrhea or vomiting as per nurse, mild cough as per nurse. Past Patient History - Past Medical History & Family History Past Medical History?: Yes - Past Social History Smoking Status: Former Smoker Home Situation {Lives}: Long Term - CARDIAC Hx Hypercholesterolemia: Yes Hx Hypertension: Yes - PULMONARY Hx Respiratory Disorders: No - NEUROLOGICAL Hx Alzheimer's Disease: Yes Hx Dementia: Yes Hx Seizures: Yes - HEENT Hx HEENT Problems: No - RENAL Hx Chronic Kidney Disease: No - ENDOCRINE/METABOLIC Hx Hypothyroidism: Yes - HEMATOLOGICAL/ONCOLOGICAL Hx Blood Disorders: No - INTEGUMENTARY Hx Dermatological Problems: No - MUSCULOSKELETAL/RHEUMATOLOGICAL Hx Falls: Yes - GASTROINTESTINAL Hx Gastrointestinal Disorders: No - GENITOURINARY/GYNECOLOGICAL Hx Genitourinary Disorders: Yes - PSYCHIATRIC Hx Substance Use: No - SURGICAL HISTORY Hx Surgeries: Yes Other/Comment: PICC line - ANESTHESIA Hx Anesthesia: Yes Hx Anesthesia Reactions: No Hx Malignant Hyperthermia: No Meds Allergies/Adverse Reactions: Allergies Allergy/AdvReac Type Severity Reaction Status Date / Time vancomycin Allergy RASH Verified 03/21/18 11:03 egg AdvReac DIARRHEA Verified 03/21/18 11:03 milk AdvReac DIARRHEA Verified 03/21/18 11:03 - Medications Medications: Current Medications Acetaminophen (Tylenol 650 Mg Supp) 650 mg NC Q4 PRN PRN Reason: Fever >100.4 F Last Admin: 03/21/18 23:15 Dose: 650 mg Epoetin Eric (Procrit) 10,000 unit SC MWF [facility] Last Admin: 03/22/18 08:44 Dose: 10,000 unit Levetiracetam 500 mg/ Sodium (Chloride) 105 mls @ 105 mls/hr IVPB Q12 LUIS ENRIQUE Last Admin: 03/22/18 08:45 Dose: 105 mls/hr Sodium Chloride (Sodium Chloride 0.9%) 1,000 mls @ 125 mls/hr IV .Q8H [facility] Stop: 03/22/18 21:56 Last Admin: 03/22/18 08:44 Dose: 125 mls/hr Azithromycin 500 mg/ Sodium (Chloride) 250 mls @ 250 mls/hr IVPB DAILY [facility]; Protocol Last Admin: 03/22/18 11:14 Dose: 250 mls/hr Piperacillin Sod/Tazobactam (Sod 3.375 gm/ Sodium Chloride) 100 mls @ 100 mls/hr IVPB Q6 LUIS ENRIQUE; Protocol Last Admin: 03/22/18 09:00 Dose: 100 mls/hr Clindamycin Phosphate (Cleocin) 600 mg in 50 mls @ 50 mls/hr IVPB Q12 LUIS ENRIQUE; Protocol Last Admin: 03/22/18 11:14 Dose: 50 mls/hr Pantoprazole Sodium (Protonix Inj) 40 mg IVP DAILY [facility] Last Admin: 03/22/18 08:42 Dose: 40 mg Physical Exam - Constitutional Appears: Chronically Ill Additional comments: lethargic and nonverbal but opens her eyes when her name is called. - Head Exam Head Exam: ATRAUMATIC - Neck Exam Neck exam: Positive for: Full Rom - Respiratory Exam Respiratory Exam: NORMAL BREATHING PATTERN Additional comments: decreased breath sounds at bases no wheezing - Cardiovascular Exam Cardiovascular Exam: RRR, +S1, +S2 - GI/Abdominal Exam GI & Abdominal Exam: Normal Bowel Sounds, Soft Additional comments: ND, minimal tenderness with palpation at the mid epigastric region no guarding, no rebound - Extremities Exam Extremities exam: Positive for: normal inspection - Neurological Exam Neurological exam: Altered Results - Vital Signs Recent Vital Signs: Last Vital Signs Temp 98.5 F 03/22/18 15:44 Pulse 99 H 03/22/18 15:44 Resp 18 03/22/18 15:44 BP 112/68 03/22/18 15:44 Pulse Ox 100 03/22/18 15:44 - Labs Result Diagrams: 03/22/18 04:25 03/22/18 04:25 Labs: Laboratory Results - last 24 hr 03/22/18 03/22/18 03/22/18 04:25 04:25 04:25 WBC 19.7 H RBC 4.24 Hgb 9.8 L Hct 31.1 L MCV 73.2 L MCH 23.1 L MCHC 31.6 L RDW 25.0 H Plt Count 427 H PT 17.8 H INR 1.6 APTT 37.8 H Sodium 141 Potassium 3.7 Chloride 111 H Carbon Dioxide 21 L Anion Gap 13 BUN 19 H Creatinine 0.9 Est GFR ( Amer) > 60 Est GFR (Non-Af Amer) > 60 Random Glucose 100 Calcium 8.8 Total Bilirubin 0.7 AST 18 ALT 30 Alkaline Phosphatase 74 Total Protein 6.1 L Albumin 2.9 L Globulin 3.3 Albumin/Globulin Ratio 0.9 L Triglycerides 72 D Cholesterol 75 LDL Cholesterol Direct 40 HDL Cholesterol 27 L Thyroxine (T4) 5.85 TSH 3rd Generation 1.20 Laboratory Results - last 72 hr 03/21/18 03/21/18 03/21/18 12:00 12:25 12:25 WBC 25.1 H D RBC 5.05 Hgb 11.4 L Hct 37.4 MCV 74.2 L MCH 22.5 L MCHC 30.4 L RDW 26.1 H Plt Count 466 H MPV 8.0 Neut % (Auto) 74.2 Lymph % (Auto) 15.8 L [place] % (Auto) 9.5 Eos % (Auto) 0.1 Baso % (Auto) 0.4 Neut # (Auto) 18.6 H Lymph # (Auto) 4.0 [place] # (Auto) 2.4 H Eos # (Auto) 0.0 Baso # (Auto) 0.1 PT INR APTT pO2 VBG pH VBG pCO2 VBG HCO3 VBG Total CO2 VBG O2 Sat (Calc) VBG Base Excess VBG Potassium Sodium 131 L Chloride 101 Glucose Lactate FiO2 Potassium 4.4 Carbon Dioxide 21 L Anion Gap 13 BUN 18 H Creatinine 0.9 Est GFR ( Amer) > 60 Est GFR (Non-Af Amer) > 60 Random Glucose 101 Calcium 9.1 Phosphorus 5.6 H Magnesium 2.0 Total Bilirubin 0.9 AST 32 ALT 24 Alkaline Phosphatase 83 Total Protein 7.1 Albumin 3.6 Globulin 3.5 Albumin/Globulin Ratio 1.0 Triglycerides Cholesterol LDL Cholesterol Direct HDL Cholesterol Thyroxine (T4) TSH 3rd Generation Venous Blood Potassium Urine Color Urine Clarity Urine pH Ur Specific [place] Urine Protein Urine Glucose (UA) Urine Ketones Urine Blood Urine Nitrate Urine Bilirubin Urine Urobilinogen Ur Leukocyte Esterase Urine RBC (Auto) Urine Microscopic WBC Ur Squamous Epith Cells Urine Bacteria Influenza Typ A,B (EIA) Negative for flu a/b 03/21/18 03/21/18 03/21/18 12:25 12:25 12:25 WBC RBC Hgb Hct MCV MCH MCHC RDW Plt Count MPV Neut % (Auto) Lymph % (Auto) [place] % (Auto) Eos % (Auto) Baso % (Auto) Neut # (Auto) Lymph # (Auto) [place] # (Auto) Eos # (Auto) Baso # (Auto) PT 17.1 H INR 1.5 APTT 36.6 pO2 46 VBG pH 7.42 VBG pCO2 35 L VBG HCO3 23.5 VBG Total CO2 23.8 VBG O2 Sat (Calc) 79.0 H VBG Base Excess -1.3 L VBG Potassium 4.5 Sodium 134.0 Chloride 103.0 Glucose 103 Lactate 1.8 FiO2 21.0 Potassium Carbon Dioxide Anion Gap BUN Creatinine Est GFR ( Amer) Est GFR (Non-Af Amer) Random Glucose Calcium Phosphorus Magnesium Total Bilirubin AST ALT Alkaline Phosphatase Total Protein Albumin Globulin Albumin/Globulin Ratio Triglycerides Cholesterol LDL Cholesterol Direct HDL Cholesterol Thyroxine (T4) TSH 3rd Generation Venous Blood Potassium 4.5 Urine Color Eri Urine Clarity Slighty-cloudy Urine pH 5.0 Ur Specific [place] 1.033 H Urine Protein 30 Urine Glucose (UA) Neg Urine Ketones Negative Urine Blood Small Urine Nitrate Negative Urine Bilirubin Negative Urine Urobilinogen 2.0 H Ur Leukocyte Esterase Neg Urine RBC (Auto) 4 H Urine Microscopic WBC 2 Ur Squamous Epith Cells < 1 Urine Bacteria Rare Influenza Typ A,B (EIA) 03/21/18 03/22/18 03/22/18 15:43 04:25 04:25 WBC 19.7 H RBC 4.24 Hgb 9.8 L Hct 31.1 L MCV 73.2 L MCH 23.1 L MCHC 31.6 L RDW 25.0 H Plt Count 427 H MPV Neut % (Auto) Lymph % (Auto) [place] % (Auto) Eos % (Auto) Baso % (Auto) Neut # (Auto) Lymph # (Auto) [place] # (Auto) Eos # (Auto) Baso # (Auto) PT INR APTT pO2 38 VBG pH 7.42 VBG pCO2 34 L VBG HCO3 23.0 VBG Total CO2 23.1 VBG O2 Sat (Calc) 69.3 H VBG Base Excess -1.7 L VBG Potassium 3.9 Sodium 136.0 141 Chloride 105.0 111 H Glucose 101 Lactate 1.8 FiO2 21.0 Potassium 3.7 Carbon Dioxide 21 L Anion Gap 13 BUN 19 H Creatinine 0.9 Est GFR ( Amer) > 60 Est GFR (Non-Af Amer) > 60 Random Glucose 100 Calcium 8.8 Phosphorus Magnesium Total Bilirubin 0.7 AST 18 ALT 30 Alkaline Phosphatase 74 Total Protein 6.1 L Albumin 2.9 L Globulin 3.3 Albumin/Globulin Ratio 0.9 L Triglycerides 72 D Cholesterol 75 LDL Cholesterol Direct 40 HDL Cholesterol 27 L Thyroxine (T4) 5.85 TSH 3rd Generation 1.20 Venous Blood Potassium 3.9 Urine Color Urine Clarity Urine pH Ur Specific [place] Urine Protein Urine Glucose (UA) Urine Ketones Urine Blood Urine Nitrate Urine Bilirubin Urine Urobilinogen Ur Leukocyte Esterase Urine RBC (Auto) Urine Microscopic WBC Ur Squamous Epith Cells Urine Bacteria Influenza Typ A,B (EIA) 03/22/18 04:25 WBC RBC Hgb Hct MCV MCH MCHC RDW Plt Count MPV Neut % (Auto) Lymph % (Auto) [place] % (Auto) Eos % (Auto) Baso % (Auto) Neut # (Auto) Lymph # (Auto) [place] # (Auto) Eos # (Auto) Baso # (Auto) PT 17.8 H INR 1.6 APTT 37.8 H pO2 VBG pH VBG pCO2 VBG HCO3 VBG Total CO2 VBG O2 Sat (Calc) VBG Base Excess VBG Potassium Sodium Chloride Glucose Lactate FiO2 Potassium Carbon Dioxide Anion Gap BUN Creatinine Est GFR ( Amer) Est GFR (Non-Af Amer) Random Glucose Calcium Phosphorus Magnesium Total Bilirubin AST ALT Alkaline Phosphatase Total Protein Albumin Globulin Albumin/Globulin Ratio Triglycerides Cholesterol LDL Cholesterol Direct HDL Cholesterol Thyroxine (T4) TSH 3rd Generation Venous Blood Potassium Urine Color Urine Clarity Urine pH Ur Specific [place] Urine Protein Urine Glucose (UA) Urine Ketones Urine Blood Urine Nitrate Urine Bilirubin Urine Urobilinogen Ur Leukocyte Esterase Urine RBC (Auto) Urine Microscopic WBC Ur Squamous Epith Cells Urine Bacteria Influenza Typ A,B (EIA) Microbiology 03/21/18 12:00 Blood S.aureus & Coag-Neg Staph PNA FISH - Final TEST NOT PERFORMED 03/21/18 12:00 Blood Blood Culture - Preliminary Gram Positive Cocci 03/21/18 12:00 Blood Gram Stain - Final 03/21/18 12:25 Blood Blood Culture - Preliminary NO GROWTH AFTER 24 HOURS 03/21/18 12:25 Urine,Catheterized Urine Culture - Final No Growth (<1,000 CFU/ML) Microbiology 02/16/18 02:00 Urine,Clean Catch Urine Culture - Final No Growth (<1,000 CFU/ML) 02/15/18 17:34 Blood-Venous Blood Culture - Final 02/15/18 17:34 Blood-Venous Gram Stain - Final NO GROWTH AFTER 5 DAYS TEST NOT PERFORMED 02/15/18 16:46 Blood-Venous Blood Culture - Final 02/15/18 16:46 Blood-Venous Gram Stain - Final NO GROWTH AFTER 5 DAYS TEST NOT PERFORMED 01/28/18 17:39 Urine,Catheterized Urine Culture - Final Escherichia Coli 01/28/18 17:19 Blood Blood Culture - Final 01/28/18 17:19 Blood Gram Stain - Final NO GROWTH AFTER 5 DAYS TEST NOT PERFORMED Accession No. : [id number] Patient Name / ID : CYNDI CHOWDHURY / [id number] Exam Date : 03/21/2018 12:25:44 ( Approved ) Study Comment : Sex / Age : F / 73Y Creator : Zeina Trejo Dictator : Zeina Trejo Jawbone Puller : Tag Maker : Zeina Trejo Approver2 : Report Date : 03/21/2018 12:58:05 My Comment : Date of service: 03/21/2018 HISTORY: Sepsis Patient COMPARISON: 01/28/2019 FINDINGS: LUNGS: Left hemidiaphragm is asymmetrically elevated as before. The bronchovascular markings here are increased and blend with vague bandlike atelectatic changes. Interval increase left pleural effusion very small suggested. RF no interval right lung pathology seen. PLEURA: Small left pleural effusion-an interval change. No more significant appearing pleural effusions noted. No pneumothorax appreciated. CARDIOVASCULAR: There is absence of aortic atherosclerotic calcification on x-ray. Probable top-normal heart size. No significant appearing pulmonary venous congestion. OSSEOUS STRUCTURES: No significant abnormalities. VISUALIZED UPPER ABDOMEN: Normal. OTHER FINDINGS: None. IMPRESSION: Interval left minimal basal subsegmental atelectasis with interval small left pleural effusion. A concomitant small patchy developing infiltrate here also needs to be considered. The asymmetrically elevated left hemidiaphragm is as before. Clinical correlation and follow-up recommended. Accession No. : [id number] Patient Name / ID : CYNDI CHOWDHURY / [id number] Exam Date : 03/22/2018 12:19:18 ( Approved ) Study Comment : Sex / Age : F / 73Y Creator : Irwin Escalante MD Dictator : Irwin Escalante MD Jawbone Puller : Tag Maker : Irwin Escalante MD Approver2 : Report Date : 03/22/2018 16:37:15 My Comment : Date of service: 03/22/2018 PROCEDURE: CT Chest without contrast HISTORY: Pneumonia. COMPARISON: March 21, 2018. Single-view chest 05/08/2017 CT thorax 03/17/2017 CT abdomen and pelvis. TECHNIQUE: Contiguous axial images were obtained through the chest without intravenous contrast enhancement. Sagittal and coronal reconstructions were performed. Radiation dose: Total exam DLP = 324.35 mGy-cm. This CT exam was performed using one or more of the following dose reduction techniques: Automated exposure control, adjustment of the mA and/or kV according to patient size, and/or use of iterative reconstruction technique. FINDINGS: LUNGS: Compressive atelectasis left lower lobe related to left pleural effusion. MEDIASTINUM: Unremarkable thoracic aorta. No aneurysm. Normal sized heart. Main pulmonary artery unremarkable. No vascular congestion. No lymphadenopathy. Atherosclerotic calcifications identified primarily aortic arch. Non aneurysmal thoracic and upper abdominal aorta. PLEURA: Bilateral pleural effusions, left larger than right. BONES: No fracture. No destructive lesion. UPPER ABDOMEN: Left upper quadrant mass inseparable from the colon. There is a tissue plane this mass from the stomach and spleen. Mass is difficult to quantify, on coronal images the mass measures 6.4 x 5.3 cm on on the sagittal images 5 0.5 x 6.5 cm. There were inflammatory changes involving the affected segment of the colon/splenic flexure on the prior study. Dedicated CT of the abdomen with oral and intravenous contrast recommended. OTHER FINDINGS: None. IMPRESSION: Bilateral pleural effusions left larger than right. Compressive atelectasis limited to the left lower lobe. Ill-defined left upper quadrant mass. Further evaluation strongly advised. Specifically CT of the abdomen pelvis with oral and intravenous contrast. The mass likely originates from the splenic flexure region Assessment & Plan (1) Leukocytosis Status: Acute (2) Bacteremia due to Gram-positive bacteria Status: Acute (3) Fever Status: Acute (4) Pleural effusion Status: Acute - Assessment and Plan (Free Text) Assessment: A/P- 73 year old female with multiple medical conditions including alzheimer's dementia, hypothyroidism , previous ESBL UTI and right arm DVT admitted with fever, leukocytosis and + blood x. source of the GPC in one of the 2 admission blood cx is unclear at this time. UA- neg urine cx- neg + leukocytosis but no left shift. cxr left pleural effusion and ? infiltrate chest Ct report- b/l effusions and ? LUQ of abdomen mass. Plan- await ID and sensitivity if the GPC in blood cx ( could be contaminant ), however, in light of fever and high wbc count and h/p PICC line in recent past advise to treat it with IV abx pending ID and sens of the cx,. had lengthy conversation with pt's daughter explaining that pt's vanco reaction ( from the daughter's description was most likely a red man syndrome adn it's not allergic response but rather a reaction that can happen if vanco is given too fast. Pt' s daughter agrees with trying to give vanco at slower rate to treat the GPC bacteremi and advised if she develops red face again with the slower and lower dose vanco to immediately notify the nurse and we would d/c it imemdiately ( patient's daughters are both in agreemnt with this and verbalzies full understanding of all above). check TTE r/o any vegetations. check 2 more blood cx. keep vanco trough <20. agree with empiric zosyn and zithromax as per PMD for covering for ? aspiration pneumonia. will need abd CT for further evaluation of the LUQ mass that was reported on chest CT. check urine legionella AG. check mycoplasma serology as well. all labs and imaging and chart notes reviewed. all above d/w patient's daughters who are her medical decision makers and are at her bedside. All above d/w pt's nurse tania as well. Thank you for allowing me to take part in the care of this patient.
--- NOTE | 2018-03-22 16:42 | CT ---
Date of service: 03/22/2018 PROCEDURE: CT Chest without contrast HISTORY: Pneumonia. COMPARISON: March 21, 2018. Single-view chest 05/08/2017 CT thorax 03/17/2017 CT abdomen and pelvis. TECHNIQUE: Contiguous axial images were obtained through the chest without intravenous contrast enhancement. Sagittal and coronal reconstructions were performed. Radiation dose: Total exam DLP = 324.35 mGy-cm. This CT exam was performed using one or more of the following dose reduction techniques: Automated exposure control, adjustment of the mA and/or kV according to patient size, and/or use of iterative reconstruction technique. FINDINGS: LUNGS: Compressive atelectasis left lower lobe related to left pleural effusion. MEDIASTINUM: Unremarkable thoracic aorta. No aneurysm. Normal sized heart. Main pulmonary artery unremarkable. No vascular congestion. No lymphadenopathy. Atherosclerotic calcifications identified primarily aortic arch. Non aneurysmal thoracic and upper abdominal aorta. PLEURA: Bilateral pleural effusions, left larger than right. BONES: No fracture. No destructive lesion. UPPER ABDOMEN: Left upper quadrant mass inseparable from the colon. There is a tissue plane this mass from the stomach and spleen. Mass is difficult to quantify, on coronal images the mass measures 6.4 x 5.3 cm on on the sagittal images 5 0.5 x 6.5 cm. There were inflammatory changes involving the affected segment of the colon/splenic flexure on the prior study. Dedicated CT of the abdomen with oral and intravenous contrast recommended. OTHER FINDINGS: None. IMPRESSION: Bilateral pleural effusions left larger than right. Compressive atelectasis limited to the left lower lobe. Ill-defined left upper quadrant mass. Further evaluation strongly advised. Specifically CT of the abdomen pelvis with oral and intravenous contrast. The mass likely originates from the splenic flexure region
[2018-03-23] MEDS: Piperacillin/Tazobact 3.375 GM in Sodium Chloride 0.9% 100 ML IVPB SCH ×4 (04:09→21:53)
[2018-03-23 07:19] LABS: BASO % 0.3 % (0.0-2.0); EOS # 0.1 K/uL (0.0-0.7); EOS % 0.9 % (0.0-4.0); HEMOGLOBIN 8.5 g/dL (12.0-16.0); LYMPH # 2.6 K/uL (1.0-4.3); LYMPH % 19.2 % (20.0-40.0); MEAN CELL VOLUME 73.5 fl (81.0-99.0); MEAN CORPUSCULAR HEMOGLOBIN 23.1 pg (27.0-31.0); MEAN CORPUSCULAR HGB CONC 31.4 g/dL (33.0-37.0); MEAN PLATELET VOLUME 8.3 fl (7.2-11.7); MONO % 7.2 % (0.0-10.0); NEUT # 9.8 K/uL (1.8-7.0); NEUT % 72.4 % (50.0-75.0); NRBC % 0.1 % (0.0-0.0); RBC 3.68 Mil/uL (3.80-5.20); WHITE BLOOD COUNT 13.5 K/uL (4.8-10.8)
[2018-03-23] MEDS: levETIRAcetam 500 MG in Sodium Chloride 0.9% 100 ML IVPB SCH ×2 (10:17→20:45)
[2018-03-23] MEDS: Azithromycin 500 MG in Sodium Chloride 0.9% 250 ML IVPB SCH (10:22)
[2018-03-23] MEDS ORDERED: Iohexol 240 (50 ml) PO ONE (15:34)
[2018-03-23] MEDS ORDERED: Chlorhexidine Gluconate 1 APPL/PKT TP ONE (15:58)
--- NOTE | 2018-03-23 16:42 | CP.PCM.PN ---
Subjective - Date & Time of Evaluation Date of Evaluation: 03/23/18 Time of Evaluation: 14:30 - Subjective Subjective: F/U PNA Objective - Vital Signs/Intake and Output Vital Signs (last 24 hours): Temp Pulse Resp BP Pulse Ox 98.1 F 82 18 110/68 100 03/23/18 15:38 03/23/18 15:38 03/23/18 15:38 03/23/18 15:38 03/23/18 15:38 - Medications Medications: Current Medications Acetaminophen (Tylenol 650 Mg Supp) 650 mg [place] Q4 PRN PRN Reason: Fever >100.4 F Last Admin: 03/21/18 23:15 Dose: 650 mg Epoetin Eric (Procrit) 10,000 unit SC MWF [facility] Last Admin: 03/22/18 08:44 Dose: 10,000 unit Levetiracetam 500 mg/ Sodium (Chloride) 105 mls @ 105 mls/hr IVPB Q12 [facility] Last Admin: 03/23/18 10:17 Dose: 105 mls/hr Azithromycin 500 mg/ Sodium (Chloride) 250 mls @ 250 mls/hr IVPB DAILY [facility]; Protocol Last Admin: 03/23/18 10:22 Dose: 250 mls/hr Piperacillin Sod/Tazobactam (Sod 3.375 gm/ Sodium Chloride) 100 mls @ 100 ml s/hr IVPB Q6 [facility]; Protocol Last Admin: 03/23/18 11:43 Dose: 100 mls/hr Dextrose/Sodium Chloride (Dextrose 5%/0.9% Ns 1000 Ml) 1,000 mls @ 90 mls/hr IV .Q11H7M [facility] Stop: 03/25/18 15:28 Pantoprazole Sodium (Protonix Inj) 40 mg IVP DAILY [facility] Last Admin: 03/23/18 10:24 Dose: 40 mg - Labs Labs: 03/23/18 04:00 03/22/18 04:25 PT 17.8 Seconds (9.8-13.1) H 03/22/18 04:25 INR 1.6 03/22/18 04:25 APTT 37.8 Seconds (25.6-37.1) H 03/22/18 04:25 - Constitutional Appears: No Acute Distress - Head Exam Head Exam: NORMAL INSPECTION - Eye Exam Eye Exam: PERRL - ENT Exam ENT Exam: Normal Exam - Neck Exam Neck Exam: Normal Inspection - Respiratory Exam Respiratory Exam: Decreased Breath Sounds (at bases) - Cardiovascular Exam Cardiovascular Exam: REGULAR RHYTHM - GI/Abdominal Exam GI & Abdominal Exam: Soft, Tenderness (minimal epigastric region on palpation), Normal Bowel Sounds - Extremities Exam Additional comments: Edema R upper arm - Back Exam Back Exam: NORMAL INSPECTION - Neurological Exam Neurological Exam: Awake, Reflexes Normal Additional comments: responsive to verbal/tactile stimuli by open eyes, unable to follow commands. - Skin Skin Exam: Normal Color, Warm Assessment and Plan (1) PNA (pneumonia) Status: Acute (2) Fever Status: Acute (3) Pleural effusion Status: Acute (4) Anemia Status: Acute (5) Dementia Status: Chronic (6) HTN (hypertension) Status: Chronic (7) Hx of seizure disorder Status: Chronic (8) Hypothyroid Status: Chronic (9) Hx of deep venous thrombosis Status: Chronic
[2018-03-23] MEDS: Dextrose 5%/0.9% NS 1,000 ML IV SCH (17:36)
[2018-03-23] MEDS ORDERED: Sodium Chloride 0.9% 50 ML IV ONE (19:25)
[2018-03-23] MEDS ORDERED: Iohexol 300 100 ML IJ ONE (19:25)
--- NOTE | 2018-03-23 22:22 | CARD ---
APPROVED REPORT Date of service: 03/23/2018 EXAM: Two-dimensional and M-mode echocardiogram with Doppler and color Doppler. Other Information Quality : Technically LimitedRhythm : NSR INDICATION Bacteremia M-Mode DIMENSIONS Left Atrium (MM)4.09 (2.5-4.0cm)Aortic Root4.75 (2.2-3.7cm) Aortic Valve AoV Peak Iwtmvscs737.6cm/sAoV VTI26.3cmAO Peak GR.8mmHg LVOT Peak Bukfbuet176.2cm/sLVOT VTI19.86cmAO Mean GR.5mmHg Mitral Valve MV E Qujeyigr81.5cm/sMV E Peak Gr.10mmHgMV DECEL UEJA910hv MV A Pbowaomy54.7cm/sMV QMP08ckB/A ratio0.9 MVA (PHT)2.97cm2 TDI Lateral E' Peak V9.70cm/sMedial E' Peak V9.53cm/sE/Lateral E'5.8 E/Medial E'5.9 Tricuspid Valve TR Peak Ziohmmsm263es/sTR Peak Gr.47okNeNUDT08hqUu LEFT VENTRICLE The left ventricle is normal size. There is normal left ventricular wall thickness. The left ventricular systolic function is normal. The estimated ejection fraction is 60-65% No regional wall motion abnormalities noted.. Transmitral Doppler flow pattern is Grade I-abnormal relaxation pattern. No left ventricle thrombus noted on this study. There is no ventricular septal defect visualized. There is no left ventricular aneurysm. There is no mass noted in the left ventricle. RIGHT VENTRICLE The right ventricle is normal size. There is normal right ventricular wall thickness. The right ventricular systolic function is normal. ATRIA The left atrium is mildly dilated. The right atrium size is normal. The interatrial septum is intact with no evidence for an atrial septal defect. AORTIC VALVE The aortic valve is normal in structure. No aortic regurgitation is present. There is no aortic valvular stenosis. There is no aortic valvular vegetation. MITRAL VALVE The mitral valve is normal in structure. There is no evidence of mitral valve prolapse. There is no mitral valve stenosis. There is trace mitral valve regurgitation noted. TRICUSPID VALVE The tricuspid valve is normal in structure. There is mild tricuspid valve regurgitation noted. RVSP is calculated at 32 mm Hg. There is no tricuspid valve prolapse or vegetation. There is no tricuspid valve stenosis. PULMONIC VALVE The pulmonary valve is normal in structure. There is no pulmonic valvular regurgitation. There is no pulmonic valvular stenosis. GREAT VESSELS The aortic root is normal in size. The ascending aorta is normal in size. The pulmonary artery is normal. The IVC is normal in size and collapses >50% with inspiration. PERICARDIAL EFFUSION There is no pericardial effusion. There is no pleural effusion. <Conclusion> Technically difficult study with limited views. The estimated ejection fraction is 60-65% Transmitral Doppler flow pattern is Grade I-abnormal relaxation pattern. The left atrium is mildly dilated. There is trace mitral valve regurgitation noted. There is mild tricuspid valve regurgitation noted. RVSP is calculated at 32 mm Hg. On this limited study, there were no obvious vegetations found. Recommend clinical correlation.
[2018-03-24] MEDS: Dextrose 5%/0.9% NS 1,000 ML IV SCH ×2 (03:00→14:52)
[2018-03-24] MEDS: Piperacillin/Tazobact 3.375 GM in Sodium Chloride 0.9% 100 ML IVPB SCH ×4 (03:52→21:16)
[2018-03-24] MEDS: levETIRAcetam 500 MG in Sodium Chloride 0.9% 100 ML IVPB SCH ×2 (09:19→21:17)
[2018-03-24] MEDS: Azithromycin 500 MG in Sodium Chloride 0.9% 250 ML IVPB SCH (09:26)
--- NOTE | 2018-03-24 13:25 | CT ---
Date of service: 03/23/2018 PROCEDURE: CT Chest, Abdomen and Pelvis with intravenous contrast HISTORY: pneumonia COMPARISON: Chest CT without contrast 03/22/2018. Abdomen pelvis CT with intravenous contrast 03/17/2017. TECHNIQUE: Helical CT of the chest, abdomen pelvis was performed from the thoracic inlet to the symphysis pubis following intravenous contrast administration only, as requested. Oral contrast was not administered. IV dose administered: Omnipaque 300, 95 cc Radiation dose: Total exam DLP = 716.68 mGy-cm. This CT exam was performed using one or more of the following dose reduction techniques: Automated exposure control, adjustment of the mA and/or kV according to patient size, and/or use of iterative reconstruction technique. FINDINGS: CT CHEST WITH CONTRAST: Mild left pleural effusions unchanged with trace right pleural effusion no evident. Compressive atelectasis affects the left lower lobe and minimally affects the lingula. Dependent atelectasis seen at the right lower lobe. Central airways are stable and unremarkable. No infiltrate is seen in nondependent lung and there is no pneumothorax bilaterally. No gross mass. A small hiatal hernia is identified. Thoracic inlet is unremarkable. No vascular pathology grossly evident. OTHER FINDINGS: None. CT ABDOMEN AND PELVIS: There is interval gross thickening of the splenic flexure which is suspicious for neoplasm. Local abscess is not excluded but is not favored either given the lack of heterogeneity of density of the grossly thickened wall of the splenic flexure posteriorly. No bowel obstruction. Liquid fecal material seen throughout the colon diffusely but sparing the rectum and distal sigmoid. Unopacified small bowel loops are unremarkable. Stomach is mildly distended with retained gas and otherwise collapsed. Evaluation of the gastrointestinal tract is limited due to the lack of oral contrast administration. A small lucency is unchanged at the spleen. The liver is unremarkable as well as the bilateral adrenal glands and gallbladder. Pancreas is diffusely unremarkable. No significant dilatation of the common bile duct. Bilateral kidneys are stable in appearance. Scattered trace ascites identified at the upper and central abdomen and is mild in the pelvis. Urinary bladder is unremarkable as well as the reproductive organs. No destructive bony lesions are identified throughout the chest, abdomen or pelvis. No fracture evident. OTHER FINDINGS: None. IMPRESSION: 1. Stable mild left pleural effusion. Minimal right pleural effusion now evident. Compression atelectasis favored over pneumonia at the left lower lobe and dependent atelectasis is favored over pneumonia at the right lower lobe dependent portion. 2. Findings suggestive of neoplasm at the splenic flexure without bowel obstruction. Follow-up colonoscopy recommended for tissue diagnosis. No significant lymphadenopathy in the abdomen or pelvis. 3. Other lesser findings as discussed above. Discordant preliminary report from [facility] (Impression 2). Findings discussed with Radha Mcrae with written down and read back verification 03/24/2018 1:15 p.m..
--- NOTE | 2018-03-24 17:02 | CP.PCM.PN ---
Subjective - Date & Time of Evaluation Date of Evaluation: 03/24/18 Time of Evaluation: 13:50 - Subjective Subjective: F/U PNA no Ad, arousable, able to talk, with single words, " feels well" Objective - Vital Signs/Intake and Output Vital Signs (last 24 hours): Temp Pulse Resp BP Pulse Ox 98.1 F 73 20 115/65 98 03/24/18 16:03 03/24/18 16:03 03/24/18 16:03 03/24/18 16:03 03/24/18 16:03 - Medications Medications: Current Medications Acetaminophen (Tylenol 650 Mg Supp) 650 mg [place] Q4 PRN PRN Reason: Fever >100.4 F Last Admin: 03/21/18 23:15 Dose: 650 mg Epoetin Eric (Procrit) 10,000 unit SC MWF [facility] Last Admin: 03/22/18 08:44 Dose: 10,000 unit Levetiracetam 500 mg/ Sodium (Chloride) 105 mls @ 105 mls/hr IVPB Q12 [facility] Last Admin: 03/24/18 09:19 Dose: 105 mls/hr Azithromycin 500 mg/ Sodium (Chloride) 250 mls @ 250 mls/hr IVPB DAILY [facility]; Protocol Last Admin: 03/24/18 09:26 Dose: 250 mls/hr Piperacillin Sod/Tazobactam (Sod 3.375 gm/ Sodium Chloride) 100 mls @ 100 mls/hr IVPB Q6 [facility]; Protocol Last Admin: 03/24/18 16:18 Dose: 100 mls/hr Dextrose/Sodium Chloride (Dextrose 5%/0.9% Ns 1000 Ml) 1,000 mls @ 90 mls/hr IV .Q11H7M [facility] Stop: 03/25/18 15:28 Last Admin: 03/24/18 14:52 Dose: 90 mls/hr Vancomycin HCl 500 mg/ Sodium (Chloride) 100 mls @ 100 mls/hr IVPB Q12 [facility]; Protocol Stop: 03/24/18 23:01 Pantoprazole Sodium (Protonix Inj) 40 mg IVP DAILY [facility] Last Admin: 03/24/18 09:19 Dose: 40 mg - Labs Labs: 03/23/18 04:00 03/22/18 04:25 PT 17.8 Seconds (9.8-13.1) H 03/22/18 04:25 INR 1.6 03/22/18 04:25 APTT 37.8 Seconds (25.6-37.1) H 03/22/18 04:25 - Constitutional Appears: No Acute Distress - Head Exam Head Exam: NORMAL INSPECTION - Eye Exam Eye Exam: PERRL - ENT Exam ENT Exam: Normal Exam - Neck Exam Neck Exam: Normal Inspection - Respiratory Exam Respiratory Exam: Decreased Breath Sounds (at bases) - Cardiovascular Exam Cardiovascular Exam: REGULAR RHYTHM - GI/Abdominal Exam GI & Abdominal Exam: Soft, Tenderness (minimal on palpation epigastric area, LUQ), Normal Bowel Sounds - Extremities Exam Additional comments: Edema R upper arm - Back Exam Back Exam: NORMAL INSPECTION - Neurological Exam Neurological Exam: Awake, Reflexes Normal Additional comments: Non verbal, lethargic, unable to follows commands, responsive to verbal/tactile stimuli by open eyes. - Skin Skin Exam: Normal Color, Warm Assessment and Plan (1) PNA (pneumonia) Status: Acute (2) Fever Status: Acute (3) Pleural effusion Status: Acute (4) Anemia Status: Acute (5) Colon neoplasm Status: Acute (6) Dementia Status: Chronic (7) HTN (hypertension) Status: Chronic (8) Hx of seizure disorder Status: Chronic (9) Hypothyroid Status: Chronic (10) Hx of deep venous thrombosis Status: Chronic - Assessment and Plan (Free Text) Plan: CT Abd/Pelvis neoplasm Colon splenic flexure non obstructive, Patient was clear for Puree Diet, discussed with Patient's daughters, They requested a meeting with me in am, continue Vanco , Zithromax
[2018-03-25] MEDS: Dextrose 5%/0.9% NS 1,000 ML IV SCH ×2 (01:03→13:01)
[2018-03-25] MEDS: Piperacillin/Tazobact 3.375 GM in Sodium Chloride 0.9% 100 ML IVPB SCH (04:02)
[2018-03-25] MEDS: EPOETIN ALFA 10,000 UNIT/ML ML SC SCH (08:50)
[2018-03-25] MEDS: Azithromycin 500 MG in Sodium Chloride 0.9% 250 ML IVPB SCH (08:51)
[2018-03-25] MEDS: levETIRAcetam 500 MG in Sodium Chloride 0.9% 100 ML IVPB SCH ×2 (08:52→20:22)
[2018-03-25 11:03] LABS: HEMOGLOBIN 9.8 g/dL (12.0-16.0); MEAN CELL VOLUME 74.8 fl (81.0-99.0); MEAN CORPUSCULAR HGB CONC 30.8 g/dL (33.0-37.0); RBC 4.25 Mil/uL (3.80-5.20); WHITE BLOOD COUNT 9.8 K/uL (4.8-10.8)
[2018-03-25 11:28] LABS: BLOOD UREA NITROGEN 2 mg/dl (7-17); CALCIUM 8.3 mg/dL (8.4-10.2); GFR NON-AFRICAN AMERICAN > 60
--- NOTE | 2018-03-25 12:43 | CP.PCM.PN ---
Subjective - Date & Time of Evaluation Date of Evaluation: 03/25/18 Time of Evaluation: 12:43 - Subjective Subjective: ID Note- Pt. seen and examined today. afebrile . no new events overnight. Objective - Vital Signs/Intake and Output Vital Signs (last 24 hours): Temp Pulse Resp BP Pulse Ox 97.8 F 79 20 139/87 98 03/25/18 12:11 03/25/18 12:11 03/25/18 12:11 03/25/18 12:11 03/25/18 12:11 - Medications Medications: Current Medications Acetaminophen (Tylenol 650 Mg Supp) 650 mg [place] Q4 PRN PRN Reason: Fever >100.4 F Last Admin: 03/21/18 23:15 Dose: 650 mg Epoetin Eric (Procrit) 10,000 unit SC MWF [facility] Last Admin: 03/25/18 08:50 Dose: 10,000 unit Levetiracetam 500 mg/ Sodium (Chloride) 105 mls @ 105 mls/hr IVPB Q12 [facility] Last Admin: 03/25/18 08:52 Dose: 105 mls/hr Azithromycin 500 mg/ Sodium (Chloride) 250 mls @ 250 mls/hr IVPB DAILY [facility]; Protocol Last Admin: 03/25/18 08:51 Dose: 250 mls/hr Dextrose/Sodium Chloride (Dextrose 5%/0.9% Ns 1000 Ml) 1,000 mls @ 90 mls/hr IV .Q11H7M [facility] Stop: 03/25/18 15:28 Last Admin: 03/25/18 01:03 Dose: 90 mls/hr Potassium Chloride (Potassium Chloride 10 Meq/100 Ml) 100 mls @ 100 mls/hr IVPB Q1 [facility] Stop: 03/25/18 15:59 Pantoprazole Sodium (Protonix Inj) 40 mg IVP DAILY [facility] Last Admin: 03/25/18 08:50 Dose: 40 mg - Labs Labs: - Additional Findings Additional findings: - Constitutional Appears: Chronically Ill Additional comments: nonverbal but opens her eyes when her name is called. - Head Exam Head Exam: ATRAUMATIC - Neck Exam Neck exam: Positive for: Full Rom - Respiratory Exam Respiratory Exam: NORMAL BREATHING PATTERN Additional comments: decreased breath sounds at bases but better aeration than 2 days ago no wheezing - Cardiovascular Exam Cardiovascular Exam: RRR, +S1, +S2 - GI/Abdominal Exam GI & Abdominal Exam: Normal Bowel Sounds, Soft Additional comments: ND, minimal tenderness with palpation at the mid epigastric region no guarding, no rebound - Extremities Exam Extremities exam: Positive for: normal inspection - Neurological Exam Neurological exam: baseline dementia Laboratory Results - last 72 hr 03/23/18 03/25/18 03/25/18 04:00 10:55 10:55 WBC 13.5 H 9.8 RBC 3.68 L 4.25 Hgb 8.5 L 9.8 L Hct 27.0 L 31.8 L MCV 73.5 L 74.8 L MCH 23.1 L 23.0 L MCHC 31.4 L 30.8 L RDW 25.0 H 25.0 H Plt Count 384 462 H MPV 8.3 Neut % (Auto) 72.4 Lymph % (Auto) 19.2 L [place] % (Auto) 7.2 Eos % (Auto) 0.9 Baso % (Auto) 0.3 Neut # (Auto) 9.8 H Lymph # (Auto) 2.6 [place] # (Auto) 1.0 H Eos # (Auto) 0.1 Baso # (Auto) 0.0 Sodium 142 Potassium 2.6 L Chloride 113 H Carbon Dioxide 20 L Anion Gap 12 BUN 2 L Creatinine 0.6 L Est GFR ( Amer) > 60 Est GFR (Non-Af Amer) > 60 Random Glucose 89 Calcium 8.3 L Microbiology 03/21/18 12:25 Blood Blood Culture - Preliminary NO GROWTH AFTER 4 DAYS 03/22/18 18:40 Blood-Venous Blood Culture - Preliminary NO GROWTH AFTER 48 HOURS 03/22/18 18:40 Blood-Venous Blood Culture - Preliminary NO GROWTH AFTER 48 HOURS 03/21/18 12:00 Blood Blood Culture - Final Coagulase Neg Staphylococcus 03/21/18 12:00 Blood Gram Stain - Final 03/21/18 12:25 Urine,Catheterized Urine Culture - Final No Growth (<1,000 CFU/ML) Accession No. : [id number] Patient Name / ID : CYNDI CHOWDHURY / [id number] Exam Date : 03/23/2018 19:24:48 ( Approved ) Study Comment : Sex / Age : F / 73Y Creator : Adalberto Barnett MD Dictator : Adalberto Barnett MD Tractor Sweeper Driver : Manager Flight Operations : Adalberto Barnett MD Approver2 : Report Date : 03/24/2018 13:21:09 My Comment : Date of service: 03/23/2018 PROCEDURE: CT Chest, Abdomen and Pelvis with intravenous contrast HISTORY: pneumonia COMPARISON: Chest CT without contrast 03/22/2018. Abdomen pelvis CT with intravenous contrast 03/17/2017. TECHNIQUE: Helical CT of the chest, abdomen pelvis was performed from the thoracic inlet to the symphysis pubis following intravenous contrast administration only, as requested. Oral contrast was not administered. IV dose administered: Omnipaque 300, 95 cc Radiation dose: Total exam DLP = 716.68 mGy-cm. This CT exam was performed using one or more of the following dose reduction techniques: Automated exposure control, adjustment of the mA and/or kV according to patient size, and/or use of iterative reconstruction technique. FINDINGS: CT CHEST WITH CONTRAST: Mild left pleural effusions unchanged with trace right pleural effusion no evident. Compressive atelectasis affects the left lower lobe and minimally affects the lingula. Dependent atelectasis seen at the right lower lobe. Central airways are stable and unremarkable. No infiltrate is seen in nondependent lung and there is no pneumothorax bilaterally. No gross mass. A small hiatal hernia is identified. Thoracic inlet is unremarkable. No vascular pathology grossly evident. OTHER FINDINGS: None. CT ABDOMEN AND PELVIS: There is interval gross thickening of the splenic flexure which is suspicious for neoplasm. Local abscess is not excluded but is not favored either given the lack of heterogeneity of density of the grossly thickened wall of the splenic flexure posteriorly. No bowel obstruction. Liquid fecal material seen throughout the colon diffusely but sparing the rectum and distal sigmoid. Unopacified small bowel loops are unremarkable. Stomach is mildly distended with retained gas and otherwise collapsed. Evaluation of the gastrointestinal tract is limited due to the lack of oral contrast administration. A small lucency is unchanged at the spleen. The liver is unremarkable as well as the bilateral adrenal glands and gallbladder. Pancreas is diffusely unremarkable. No significant dilatation of the common bile duct. Bilateral kidneys are stable in appearance. Scattered trace ascites identified at the upper and central abdomen and is mild in the pelvis. Urinary bladder is unremarkable as well as the reproductive organs. No destructive bony lesions are identified throughout the chest, abdomen or pelvis. No fracture evident. OTHER FINDINGS: None. IMPRESSION: 1. Stable mild left pleural effusion. Minimal right pleural effusion now evident. Compression atelectasis favored over pneumonia at the left lower lobe and dependent atelectasis is favored over pneumonia at the right lower lobe dependent portion. 2. Findings suggestive of neoplasm at the splenic flexure without bowel obstruction. Follow-up colonoscopy recommended for tissue diagnosis. No significant lymphadenopathy in the abdomen or pelvis. 3. Other lesser findings as discussed above. Discordant preliminary report from [facility] (Impression 2). Findings discussed with Radha Mcrae with written down and read back verification 03/24/2018 1:15 p.m.. Assessment and Plan (1) Leukocytosis Status: Acute (2) Bacteremia due to Gram-positive bacteria Status: Acute (3) Fever Status: Acute (4) Pleural effusion Status: Acute - Assessment and Plan (Free Text) Assessment: A/P- 73 year old female with multiple medical conditions including alzheimer's dementia, hypothyroidism , previous ESBL UTI and right arm DVT admitted with fever, leukocytosis and + blood x. afebrile Leukocytosis has resolved. UA- neg urine cx- neg blood cx- neg x 3 Coag neg staph in 1 of the 2 admission bottles ( most likely contaminant). cxr left pleural effusion and ? infiltrate chest Ct report- b/l effusions and ? LUQ of abdomen mass. abd CT- splenic flexure ? neoplasm as per report. TTE- no vegetations as per report. Plan- Pt. has tolerated vanco without any probles. the coag neg staph in 1 of 2 bottles on admission most likely contaminant. advise to check 2 more blood cx and if remain negative to d/c vanco. keep vanco trough <20. agree with empiric zosyn and zithromax as per PMD for covering for ? aspiration pneumonia.day #4. await GI evaluation of the ? GI mass. All above d/w SUPER[employer] Gisela on tele floor.
[2018-03-25] MEDS: Potassium CL 10mEq/100ml 100 ML IVPB SCH ×4 (15:39→20:17)
[2018-03-25 16:34] VITALS: BMI 23.9
--- NOTE | 2018-03-25 16:58 | CP.PCM.PN ---
Subjective - Date & Time of Evaluation Date of Evaluation: 03/25/18 Time of Evaluation: 13:00 - Subjective Subjective: F/U PNA Objective - Vital Signs/Intake and Output Vital Signs (last 24 hours): Temp Pulse Resp BP Pulse Ox 98.4 F 79 18 128/52 L 96 03/25/18 16:18 03/25/18 16:18 03/25/18 16:18 03/25/18 16:18 03/25/18 16:18 - Medications Medications: Current Medications Acetaminophen (Tylenol 650 Mg Supp) 650 mg VA Q4 PRN PRN Reason: Fever >100.4 F Last Admin: 03/21/18 23:15 Dose: 650 mg Epoetin Eric (Procrit) 10,000 unit SC MWF [facility] Last Admin: 03/25/18 08:50 Dose: 10,000 unit Levetiracetam 500 mg/ Sodium (Chloride) 105 mls @ 105 mls/hr IVPB Q12 [facility] ENRIQUE Last Admin: 03/25/18 08:52 Dose: 105 mls/hr Azithromycin 500 mg/ Sodium (Chloride) 250 mls @ 250 mls/hr IVPB DAILY [facility]; Protocol Last Admin: 03/25/18 08:51 Dose: 250 mls/hr Vancomycin HCl 500 mg/ Sodium (Chloride) 100 mls @ 100 mls/hr IVPB Q12 LUIS ENRIQUE; Protocol Pantoprazole Sodium (Protonix Inj) 40 mg IVP DAILY [facility] ENRIQUE Last Admin: 03/25/18 08:50 Dose: 40 mg - Labs Labs: 03/25/18 10:55 03/25/18 10:55 PT 17.8 Seconds (9.8-13.1) H 03/22/18 04:25 INR 1.6 03/22/18 04:25 APTT 37.8 Seconds (25.6-37.1) H 03/22/18 04:25 - Constitutional Appears: No Acute Distress - Head Exam Head Exam: NORMAL INSPECTION - Eye Exam Eye Exam: PERRL - ENT Exam ENT Exam: Normal Exam - Neck Exam Neck Exam: Normal Inspection - Respiratory Exam Respiratory Exam: Decreased Breath Sounds (at bases) - Cardiovascular Exam Cardiovascular Exam: REGULAR RHYTHM - GI/Abdominal Exam GI & Abdominal Exam: Soft, Tenderness (minimal on palpation epigastric area), Normal Bowel Sounds - Extremities Exam Additional comments: Edema R upper arm - Back Exam Back Exam: NORMAL INSPECTION - Neurological Exam Neurological Exam: Reflexes Normal Additional comments: Lethargic, unable to follows commands, responsive to verbal/tactile stimuli by open eyes. - Skin Skin Exam: Normal Color, Warm Assessment and Plan (1) PNA (pneumonia) Status: Acute (2) Fever Status: Acute (3) Pleural effusion Status: Acute (4) Anemia Status: Acute (5) Dementia Status: Chronic (6) HTN (hypertension) Status: Chronic (7) Hx of seizure disorder Status: Chronic (8) Hypothyroid Status: Chronic (9) Hx of deep venous thrombosis Status: Chronic
[2018-03-26] MEDS ORDERED: Dextrose 5%/0.9% NS 1,000 ML IV SCH (02:15)
[2018-03-26 05:29] LABS: CALCIUM 8.3 mg/dL (8.4-10.2); GFR NON-AFRICAN AMERICAN > 60
[2018-03-26 05:31] LABS: BLOOD UREA NITROGEN < 2 mg/dl (7-17)
[2018-03-26] MEDS: levETIRAcetam 500 MG in Sodium Chloride 0.9% 100 ML IVPB SCH ×2 (08:25→20:05)
[2018-03-26] MEDS: Azithromycin 500 MG in Sodium Chloride 0.9% 250 ML IVPB SCH (08:27)
[2018-03-26] MEDS ORDERED: Potassium Chloride 20 mEq/15 ml LIQ UD PO ONE (10:15)
[2018-03-26] MEDS: Potassium Chl 40 mEq in D5-NS 1,000 ML IV SCH (12:29)
--- NOTE | 2018-03-26 13:19 | CP.PCM.PCO ---
Assessment/Plan - Assessment and Plan (Free Text) Assessment: Patient seen and examined this morning during rounds. Patient asleep, wakes up to verbal stimuli Labs reviewed, Hypokalemia will order replacement via po and intravenous. Plan discussed with Dr Cobb, patients family is deferring any sort of workup, colonoscopy for mass seen at splenic flexure. Plan will be to treat hypokalemia and possible discharge to Longterm tomorrow.
--- NOTE | 2018-03-26 13:25 | PQF ---
PROVIDER RESPONSE TEXT: Sepsis ruled out. + Bacteremia REVIEWER QUERY TEXT: Rule Out Sepsis Clarification Sepsis is listed in the admitting orders but no documentation in the Medical Record. Please clarify w hether: -- Patient has sepsis -- Sepsis was ruled out (include corresponding diagnosis for patient?s clinical picture and treatment ) -- Other, please specify The patient's Clinical Indicators include: ID: Leukocytosis, Bacteremia due to Gram positive bacteria, Fever, Pleural effusion. Coag negative st aph in 1 of the 2 admission bottles ( most likely contaminant) Agree with empiric Zosyn and Zithroma x as per PMD for covering for ? aspiration pneumonia TEMP 100.6, 100.8, 98.7, 99.4, 100.4, 99.1, 98.4 HR: 108, 94, 104, 98, 104, 96 BP: 106/62, 114/72, 110/64, 97/62, 95/56 WBC 25.1 , lactate 1.8 Query created by: Milena Hoff on 03/26/2018 9:32 AM Electronically signed by: Richard Cobb MD 03/26/2018 1:22 PM
--- NOTE | 2018-03-26 13:25 | PQF ---
PROVIDER RESPONSE TEXT: Aspiration Pneumonia, Healthcare Associated Pneumonia REVIEWER QUERY TEXT: Pneumonia Specificity Pneumonia is documented in the Medical Record. Please specify the type of pneumonia and the causative organism (includes probable or suspected) Such as: Type: -- Aspiration pneumonia (please also specify the aspirate) -- Bacterial (please document suspected or probable organism) -- Bronchopneumonia (please document suspected or probable organism) -- Interstitial pneumonia -- Organizing pneumonia / BOOP -- Viral -- Other, please specify The patient's Clinical Indicators include: WBC 25.1, lactate 1.8, TEMP max 100.8. CXR:Interval left minimal basal subsegmental atelectasis with interval small left pleural effusion. A concomitant small patchy developing infiltrate here also needs to be considered. The asymmetrically elevated left hemidiaphragm is as before. CT Chest: Bilateral pleural effusions left larger than right. Compressive atelectasis limited to the left lower lobe. Ur L. pneumophila Ag Negative. No sputum CS, Mycoplasma ordered IVAB Query created by: Milena Hoff on 03/26/2018 9:52 AM Electronically signed by: Richard Cobb MD 03/26/2018 1:22 PM
--- NOTE | 2018-03-26 15:51 | CP.PCM.PN ---
Subjective - Date & Time of Evaluation Date of Evaluation: 03/26/18 Time of Evaluation: 12:10 - Subjective Subjective: F/U PNA PT awake, able to talk few words. Objective - Vital Signs/Intake and Output Vital Signs (last 24 hours): Temp Pulse Resp BP Pulse Ox 98 F 81 20 118/72 99 03/26/18 12:02 03/26/18 12:02 03/26/18 12:02 03/26/18 12:02 03/26/18 12:02 Intake and Output: 03/26/18 03/26/18 06:59 18:59 Intake Total 1280 Output Total 860 Balance 420 - Medications Medications: Current Medications Acetaminophen (Tylenol 650 Mg Supp) 650 mg MS Q4 PRN PRN Reason: Fever >100.4 F Last Admin: 03/21/18 23:15 Dose: 650 mg Epoetin Eric (Procrit) 10,000 unit SC MWF [facility] Last Admin: 03/25/18 08:50 Dose: 10,000 unit Levetiracetam 500 mg/ Sodium (Chloride) 105 mls @ 105 mls/hr IVPB Q12 [facility] ENRIQUE Last Admin: 03/26/18 08:25 Dose: 105 mls/hr Azithromycin 500 mg/ Sodium (Chloride) 250 mls @ 250 mls/hr IVPB DAILY [facility]; Protocol Last Admin: 03/26/18 08:27 Dose: 250 mls/hr Vancomycin HCl 500 mg/ Sodium (Chloride) 100 mls @ 100 mls/hr IVPB Q12 LUIS ENRIQUE; Protocol Last Admin: 03/26/18 08:26 Dose: 100 mls/hr Potassium Chloride/Dextrose/Sod Cl (D5-Ns1l+40meq Kcl) 1,000 mls @ 75 mls/hr IV .[id number] LUIS ENRIQUE Last Admin: 03/26/18 12:29 Dose: 75 mls/hr Pantoprazole Sodium (Protonix Inj) 40 mg IVP DAILY [facility] ENRIQUE Last Admin: 03/26/18 08:29 Dose: 40 mg - Labs Labs: 03/25/18 10:55 03/26/18 04:25 PT 17.8 Seconds (9.8-13.1) H 03/22/18 04:25 INR 1.6 03/22/18 04:25 APTT 37.8 Seconds (25.6-37.1) H 03/22/18 04:25 - Constitutional Appears: No Acute Distress - Head Exam Head Exam: NORMAL INSPECTION - Eye Exam Eye Exam: PERRL - ENT Exam ENT Exam: Normal Exam - Neck Exam Neck Exam: Normal Inspection - Respiratory Exam Respiratory Exam: Decreased Breath Sounds (at bases) - Cardiovascular Exam Cardiovascular Exam: REGULAR RHYTHM - GI/Abdominal Exam GI & Abdominal Exam: Soft, Tenderness (minimal on palpation epigastric area), Normal Bowel Sounds - Extremities Exam Additional comments: Edema R upper arm - Back Exam Back Exam: NORMAL INSPECTION - Neurological Exam Neurological Exam: Reflexes Normal Additional comments: Able to talk few words. - Skin Skin Exam: Warm Assessment and Plan (1) PNA (pneumonia) Status: Acute (2) Fever Status: Acute (3) Pleural effusion Status: Acute (4) Anemia Status: Acute (5) Colon neoplasm Status: Acute (6) Dementia Status: Chronic (7) HTN (hypertension) Status: Chronic (8) Hx of seizure disorder Status: Chronic (9) Hypothyroid Status: Chronic (10) Hx of deep venous thrombosis Status: Chronic - Assessment and Plan (Free Text) Plan: Continue Zithromax and rest of Tx.
[2018-03-27] MEDS: Potassium Chl 40 mEq in D5-NS 1,000 ML IV SCH (05:07)
[2018-03-27 06:13] LABS: BLOOD UREA NITROGEN < 2 mg/dl (7-17); CALCIUM 8.6 mg/dL (8.4-10.2); GFR NON-AFRICAN AMERICAN > 60
[2018-03-27 08:00] VITALS: RESP 18
--- NOTE | 2018-03-27 08:36 | CON ---
DATE: 03/26/2018 REFERRING DOCTOR: Richard Cobb MD REASON FOR CONSULTATION: CAT scan findings. HISTORY OF PRESENT ILLNESS: This is a 73-year-old female with a history of Alzheimer's dementia, history of DVTs, hypothyroidism, hypertension, seizures, vomiting. GI was called because the CAT scan shows a mass possibly on the left side. The patient is a poor historian, history is obtained from the chart and staff. The patient is currently lying in bed comfortable, confused, no apparent distress. PAST MEDICAL HISTORY: As above. PAST SURGICAL HISTORY: As above. MEDICATIONS: Reviewed. REVIEW OF SYSTEMS: All other systems have been reviewed and negative apart from the HPI. PHYSICAL EXAMINATION: VITAL SIGNS: Here in the hospital are grossly unremarkable. GENERAL: An elderly-appearing female, lying in bed comfortably, in no apparent distress. HEENT: Head: Normocephalic and atraumatic. Eyes: Pupils are equal and reactive to light bilaterally. No conjunctival pallor or icterus. NECK: Supple. Normal range of motion. No lymph nodes appreciated. LUNGS: Coarse breath sounds bilaterally. HEART: S1 and S2. Regular rate and rhythm. No murmurs appreciated. ABDOMEN: Soft, nontender. Bowel sounds are present. No rebound. No guarding. RECTAL: Deferred. EXTREMITIES: Pulses felt bilaterally. SKIN: Warm, dry, and intact. NEUROLOGIC: A and O x1. LABORATORY DATA: All labs and radiology have been reviewed. WBC is 9.8, hemoglobin of 9.8, hematocrit 31.8. Potassium 2.6. CAT scan shows a possible mass of splenic flexure. 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 From gastrointestinal standpoint, as per family, they do not want anything done. We would refer for colonoscopy if indicated. Following which, we will know how to treat. Continue current management per primary care team. Thank you for the consult. Royal Ward MD/ PhD cc: Richard Marc
[2018-03-27] MEDS: EPOETIN ALFA 10,000 UNIT/ML ML SC SCH (09:01)
[2018-03-27] MEDS: levETIRAcetam 500 MG in Sodium Chloride 0.9% 100 ML IVPB SCH (09:02)
[2018-03-27] MEDS: Azithromycin 500 MG in Sodium Chloride 0.9% 250 ML IVPB SCH (09:04)
[2018-03-27 11:59] VITALS: BP 124/72; PULSE 91; TEMP 98.8; O2SAT 99
--- NOTE | 2018-03-27 13:49 | CP.PCM.DIS ---
Provider - Provider Date of Admission: 03/21/18 13:57 Attending physician: Richard Cobb MD Consults: 03/22/18 01:42 Nursing Referral for Wound Care Routine Comment: low aron score. Physician Instructions: Reason For Exam: patient bed to wheelchair in the assisted 03/22/18 15:31 Infectious Disease Consult Routine Comment: Consulting Provider: Chiara Middleton Consulting Physician: Chiara Middleton Reason for Consult: +blood cultures sepsis 03/25/18 09:57 Gastroenterology Consult Routine Comment: Consulting Provider: Royal Ward Consulting Physician: Royal Ward Reason for Consult: neoplasm of splenic flexure Diagnosis - Discharge Diagnosis (1) PNA (pneumonia) Status: Acute Priority: High (2) Fever Status: Acute Priority: High (3) Pleural effusion Status: Acute Priority: High (4) Anemia Status: Acute Priority: High (5) Colon neoplasm Status: Acute (6) Dementia Status: Chronic Priority: High (7) HTN (hypertension) Status: Chronic Priority: Medium (8) Hx of seizure disorder Status: Chronic Priority: Medium (9) Hypothyroid Status: Chronic Priority: Medium (10) Hx of deep venous thrombosis Status: Chronic Priority: Medium Hospital Course - Lab Results Lab Results: Micro Results 03/22/18 18:40 Blood-Venous Blood Culture - Preliminary NO GROWTH AFTER 4 DAYS 03/22/18 18:40 Blood-Venous Blood Culture - Preliminary NO GROWTH AFTER 4 DAYS 03/25/18 15:46 Blood-Venous Blood Culture - Preliminary NO GROWTH AFTER 24 HOURS 03/25/18 15:36 Blood-Venous Blood Culture - Preliminary NO GROWTH AFTER 24 HOURS 03/21/18 12:25 Blood Blood Culture - Final NO GROWTH AFTER 5 DAYS 03/21/18 12:25 Blood Gram Stain - Final TEST NOT PERFORMED 03/21/18 12:00 Blood Blood Culture - Final Coagulase Neg Staphylococcus 03/21/18 12:00 Blood Gram Stain - Final 03/21/18 12:25 Urine,Catheterized Urine Culture - Final No Growth (<1,000 CFU/ML) Most Recent Lab Values WBC 9.8 K/uL (4.8-10.8) 03/25/18 10:55 RBC 4.25 Mil/uL (3.80-5.20) 03/25/18 10:55 Hgb 9.8 g/dL (12.0-16.0) L 03/25/18 10:55 Hct 31.8 % (34.0-47.0) L 03/25/18 10:55 MCV 74.8 fl (81.0-99.0) L 03/25/18 10:55 MCH 23.0 pg (27.0-31.0) L 03/25/18 10:55 MCHC 30.8 g/dL (33.0-37.0) L 03/25/18 10:55 RDW 25.0 % (11.5-14.5) H 03/25/18 10:55 Plt Count 462 K/uL (130-400) H 03/25/18 10:55 MPV 8.3 fl (7.2-11.7) 03/23/18 04:00 Neut % (Auto) 72.4 % (50.0-75.0) 03/23/18 04:00 Lymph % (Auto) 19.2 % (20.0-40.0) L 03/23/18 04:00 [place] % (Auto) 7.2 % (0.0-10.0) 03/23/18 04:00 Eos % (Auto) 0.9 % (0.0-4.0) 03/23/18 04:00 Baso % (Auto) 0.3 % (0.0-2.0) 03/23/18 04:00 Neut # (Auto) 9.8 K/uL (1.8-7.0) H 03/23/18 04:00 Lymph # (Auto) 2.6 K/uL (1.0-4.3) 03/23/18 04:00 [place] # (Auto) 1.0 K/uL (0.0-0.8) H 03/23/18 04:00 Eos # (Auto) 0.1 K/uL (0.0-0.7) 03/23/18 04:00 Baso # (Auto) 0.0 K/uL (0.0-0.2) 03/23/18 04:00 PT 17.8 Seconds (9.8-13.1) H 03/22/18 04:25 INR 1.6 03/22/18 04:25 APTT 37.8 Seconds (25.6-37.1) H 03/22/18 04:25 pO2 38 mm/Hg (30-55) 03/21/18 15:43 VBG pH 7.42 (7.32-7.43) 03/21/18 15:43 VBG pCO2 34 mmHg (40-60) L 03/21/18 15:43 VBG HCO3 23.0 mmol/L 03/21/18 15:43 VBG Total CO2 23.1 mmol/L (22-28) 03/21/18 15:43 VBG O2 Sat (Calc) 69.3 % (40-65) H 03/21/18 15:43 VBG Base Excess -1.7 mmol/L (0.0-2.0) L 03/21/18 15:43 VBG Potassium 3.9 mmol/L (3.6-5.2) 03/21/18 15:43 Sodium 136.0 mmol/L (132-148) 03/21/18 15:43 Chloride 105.0 mmol/L (98-107) 03/21/18 15:43 Glucose 101 mg/dL (65-105) 03/21/18 15:43 Lactate 1.8 mmol/L (0.7-2.1) 03/21/18 15:43 FiO2 21.0 % 03/21/18 15:43 Sodium 142 mmol/l (132-148) 03/27/18 04:30 Potassium 3.5 MMOL/L (3.6-5.0) L 03/27/18 04:30 Chloride 115 mmol/L (98-107) H 03/27/18 04:30 Carbon Dioxide 22 mmol/L (22-30) 03/27/18 04:30 Anion Gap 9 (10-20) L 03/27/18 04:30 BUN < 2 mg/dl (7-17) L 03/27/18 04:30 Creatinine 0.7 mg/dl (0.7-1.2) 03/27/18 04:30 Est GFR ( Amer) > 60 03/27/18 04:30 Est GFR (Non-Af Amer) > 60 03/27/18 04:30 Random Glucose 86 mg/dL (65-105) 03/27/18 04:30 Calcium 8.6 mg/dL (8.4-10.2) 03/27/18 04:30 Phosphorus 5.6 mg/dl (2.5-4.5) H 03/21/18 12:25 Magnesium 2.0 MG/DL (1.6-2.3) 03/21/18 12:25 Total Bilirubin 0.7 mg/dl (0.2-1.3) 03/22/18 04:25 AST 18 U/L (14-36) 03/22/18 04:25 ALT 30 U/L (9-52) 03/22/18 04:25 Alkaline Phosphatase 74 U/L (38-126) 03/22/18 04:25 Total Protein 6.1 G/DL (6.3-8.2) L 03/22/18 04:25 Albumin 2.9 g/dL (3.5-5.0) L 03/22/18 04:25 Globulin 3.3 gm/dL (2.2-3.9) 03/22/18 04:25 Albumin/Globulin Ratio 0.9 (1.0-2.1) L 03/22/18 04:25 Triglycerides 72 mg/DL (0-149) D 03/22/18 04:25 Cholesterol 75 mg/dL (0-199) 03/22/18 04:25 LDL Cholesterol Direct 40 mg/dL (0-129) 03/22/18 04:25 HDL Cholesterol 27 MG/DL (30-70) L 03/22/18 04:25 Thyroxine (T4) 5.85 ug/dl (5.5-11.0) 03/22/18 04:25 TSH 3rd Generation 1.20 mIU/ML (0.46-4.68) 03/22/18 04:25 Venous Blood Potassium 3.9 mmol/L (3.6-5.2) 03/21/18 15:43 Urine Color Eri (YELLOW) 03/21/18 12:25 Urine Clarity Slighty-cloudy (Clear) 03/21/18 12:25 Urine pH 5.0 (5.0-8.0) 03/21/18 12:25 Ur Specific [place] 1.033 (1.003-1.030) H 03/21/18 12:25 Urine Protein 30 mg/dL (NEGATIVE) 03/21/18 12:25 Urine Glucose (UA) Neg mg/dL (NEGATIVE) 03/21/18 12:25 Urine Ketones Negative mg/dL (NEGATIVE) 03/21/18 12:25 Urine Blood Small (NEGATIVE) 03/21/18 12:25 Urine Nitrate Negative (NEGATIVE) 03/21/18 12:25 Urine Bilirubin Negative (NEGATIVE) 03/21/18 12:25 Urine Urobilinogen 2.0 mg/dL (0.2-1.0) H 03/21/18 12:25 Ur Leukocyte Esterase Neg Kam/uL (Negative) 03/21/18 12:25 Urine RBC (Auto) 4 /hpf (0-3) H 03/21/18 12:25 Urine Microscopic WBC 2 /hpf (0-5) 03/21/18 12:25 Ur Squamous Epith Cells < 1 /hpf (0-5) 03/21/18 12:25 Urine Bacteria Rare (<OCC) 03/21/18 12:25 Influenza Typ A,B (EIA) Negative for flu a/b (NEGATIVE) 03/21/18 12:00 Ur L.pneumophila Ag Negative (NEGATIVE) 03/22/18 14:00 Mycoplasma pneumon IgG 1.34 (<=0.90) H 03/22/18 18:00 Discharge Exam - Head Exam Head Exam: NORMAL INSPECTION Discharge Plan - Discharge Medications Prescriptions: Azithromycin [Zithromax] 500 mg PO DAILY #2 tablet - Follow Up Plan Condition: SERIOUS Disposition: REHAB FACILITY/REHAB UNIT Instructions: Pneumonia, Adult (DC) Referrals: Richard Cobb MD [Family Provider] -
== END 2018-03-27 13:59 | DRG 178 ==
LOC: H.ER 10:57 → H.ERHOLD 13:57 → H.TEL 23:30
PROVIDERS: ADMIT Internal Medicine Pulmonary Disease; ATTEND Internal Medicine Pulmonary Disease
DX: J69.0 Pneumonitis due to inhalation of food and vomit (principal); J90 Pleural effusion, not elsewhere classified; R78.81 Bacteremia; J98.11 Atelectasis; G40.909 Epilepsy, unspecified, not intractable, without status epilepticus; E87.6 Hypokalemia; D49.0 Neoplasm of unspecified behavior of digestive system; Y95 Nosocomial condition; B96.89 Other specified bacterial agents as the cause of diseases classified elsewhere; D64.9 Anemia, unspecified; E03.9 Hypothyroidism, unspecified; E78.00 Pure hypercholesterolemia, unspecified; G30.9 Alzheimer's disease, unspecified; F02.80 Dementia in other diseases classified elsewhere, unspecified severity, without behavioral disturbance, psychotic disturbance, mood disturbance, and anxiety; I10 Essential (primary) hypertension; Z86.718 Personal history of other venous thrombosis and embolism; Z87.891 Personal history of nicotine dependence; Z79.01 Long term (current) use of anticoagulants; Z91.012 Allergy to eggs; Z91.011 Allergy to milk products